=== PATIENT | female | born 1950 | race Caucasian/White ===

== ENCOUNTER 2016-09-11 07:57 | Day surgery (SDC) | payer BC ==
[2016-09-11] MEDS ORDERED: Sodium Chloride 0.9% 5 ML Syringe FLUSH PRN (08:00)
[2016-09-11] MEDS ORDERED: Midazolam 1 MG/ML 2 ML SDV IV ONE (08:00)
[2016-09-11] MEDS ORDERED: Propofol 200 MG/20 ML SDV IV ONE (08:00)
[2016-09-11] MEDS ORDERED: Sodium Chloride 0.9% 1,000 ML IV SCH (08:00)
[2016-09-11] MEDS ORDERED: fentaNYL 100 MCG/2 ML SDV IV ONE (08:00)
[2016-09-11] MEDS ORDERED: Midazolam 1 MG/ML 2 ML SDV ONE (08:10)
[2016-09-11] MEDS ORDERED: Propofol 200 MG/20 ML SDV ONE ×2 (08:10→08:48)
[2016-09-11] MEDS ORDERED: fentaNYL 100 MCG/2 ML SDV ONE (08:10)
[2016-09-11] MEDS ORDERED: EPINEPHrine 1:10,000 1 MG/10 ML Syringe ONE (08:15)
--- NOTE | 2016-09-11 10:10 | PCM.OPNOTE ---
- General Post-Op/Procedure Note Date of Surgery/Procedure: 09/11/16 Operative Procedure(s): Colonoscopy. Pre Op Diagnosis: Anemia. Post-Op Diagnosis: Normal colonoscopy. Anesthesia Technique: MAC Primary Surgeon: Daniel Macias Condition: Good Free Text/Narrative:: INFORMED CONSENT: Patient is here today for elective colonoscopy. All aspects of this procedure have been discussed with the patient. All possible complications also, including possibility of perforation, infection, pain, bleeding and unknown complications. In the event of perforation patient may need to have abdominal exploration, colon resection, colostomy and even was discussed. Anesthetic complications were handled by anesthesia department. The patient understands fully well. Patient did not have any further questions for me at the end of my interview. The patient wishes for me to proceed. PREOPERATIVE DIAGNOSIS/INDICATIONS: [anemia] POSTOPERATIVE DIAGNOSIS: [normal] INSTRUMENT USED: Olympus videocolonoscope. ASA CLASSIFICATION: [2] ANESTHESIA: Continuous EKG, oximetry and intermittent blood pressure and respiratory monitoring were performed throughout the procedure. IV Versed and Fentanyl were administered. PROCEDURE PERFORMED: Colonoscopy POSITIONS OF PATIENT: Left lateral. RECTUM: Normal. SIGMOID COLON: Normal. DESCENDING COLON: Normal. SPLENIC FLEXURE: Normal. TRANSVERSE COLON: Normal. HEPATIC FLEXURE: Normal. ASCENDING COLON: Normal. CECUM: Normal. ILEOCECAL VALVE: Normal. BIOPSY: None. TOLERANCE: Excellent. COMPLICATIONS: None.
--- NOTE | 2016-09-11 10:46 | PCM.OPNOTE ---
- General Post-Op/Procedure Note Date of Surgery/Procedure: 09/11/16 Operative Procedure(s): Colonoscopy Pre Op Diagnosis: Alteration of bowel habits and rectal bleeding Post-Op Diagnosis: Normal colonoscopy except for multiple diverticulosis throughout the colon Anesthesia Technique: MAC Primary Surgeon: Daniel Macias Complications: None Condition: Good Free Text/Narrative:: INFORMED CONSENT: Patient is here today for elective colonoscopy. All aspects of this procedure have been discussed with the patient. All possible complications also, including possibility of perforation, infection, pain, bleeding and unknown complications. In the event of perforation patient may need to have abdominal exploration, colon resection, colostomy and even was discussed. Anesthetic complications were handled by anesthesia department. The patient understands fully well. Patient did not have any further questions for me at the end of my interview. The patient wishes for me to proceed. PREOPERATIVE DIAGNOSIS/INDICATIONS: [alteration of bowel habits and rectal bleeding] POSTOPERATIVE DIAGNOSIS: [multiple diverticuli scattered throughout the length of the colon no complication or bleeding no evidence of malignancy or polyps] INSTRUMENT USED: Olympus videocolonoscope. ASA CLASSIFICATION: [2] ANESTHESIA: Continuous EKG, oximetry and intermittent blood pressure and respiratory monitoring were performed throughout the procedure. IV Versed and Fentanyl were administered. PROCEDURE PERFORMED: Colonoscopy POSITIONS OF PATIENT: Left lateral. RECTUM: Normal. SIGMOID COLON: multiple diverticuli were seen. DESCENDING COLON: a few diverticuli were seen. SPLENIC FLEXURE: Normal. TRANSVERSE COLON: Normal. HEPATIC FLEXURE: Normal. ASCENDING COLON: a few diverticuli were seen. CECUM: Normal. ILEOCECAL VALVE: Normal. BIOPSY: None. TOLERANCE: Excellent. COMPLICATIONS: None. Final diagnosis: Multiple diverticuli throughout the colon, otherwise negative colonoscopy
--- NOTE | 2016-09-11 10:52 | PCM.OPNOTE ---
- General Post-Op/Procedure Note Date of Surgery/Procedure: 09/11/16 Operative Procedure(s): Colonoscopy and polypectomy Condition: Good Free Text/Narrative:: it should be noted that the patient did have a small polyp in the sigmoid colon approximately 25 cms from the anal margin. This polyp was removed using the hot biopsy forceps and a resolution clip was placed for additional hemostasis. The polyp was retrieved and sent for histology. The patient tolerated the procedure very well. Please add this to the previous op note for this patient.
[2016-09-11 11:45] VITALS: BP 106/46
== END 2016-09-11 11:10 | disposition home or self-care (01) ==
LOC: KA.SDS 07:57
PROVIDERS: ATTEND Family Medicine
DX: K63.5 Polyp of colon (principal); K57.30 Diverticulosis of large intestine without perforation or abscess without bleeding; I10 Essential (primary) hypertension; E11.9 Type 2 diabetes mellitus without complications; Z79.4 Long term (current) use of insulin; E78.2 Mixed hyperlipidemia; Z79.899 Other long term (current) drug therapy; Z79.82 Long term (current) use of aspirin
CPT/HCPCS: 36415; 45380; 82962; 85018; J2250; J2704; J3010; J7030

== ENCOUNTER 2016-12-11 07:42 | Emergency (ER) | payer BC ==
[2016-12-11 07:58] VITALS: BP 154/79
[2016-12-11] MEDS ORDERED: Sodium Chloride 0.9% 5 ML Syringe FLUSH PRN (07:58)
[2016-12-11 08:23] LABS: CHLORIDE,CL 107 mmol/L (98-115); SODIUM,NA 145 mmol/L (136-145)
--- NOTE | 2016-12-11 08:39 | EDM.PDOC ---
ED HPI GENERAL MEDICAL PROBLEM - General Chief Complaint: Lower Extremity Injury/Pain Stated Complaint: right arm and left leg numbness Time Seen by Provider: 12/11/16 08:23 Source of Information: Reports: Patient, EMS, EMS Notes Reviewed, Family History Limitations: Reports: No Limitations - History of Present Illness INITIAL COMMENTS - FREE TEXT/NARRATIVE: PT STATES SHE WOKE THIS AM AND HER RIGHT UPPER EXTREMITY AND LEFT LOWER EXTREMITY FELT NUMB. ADMITS TO SLEEPING ON THAT SIDE OF BODY THROUGH THE NIGHT. SHE DIDN'T THINK SHE COULD WALK SO CALLED 911. STATES HE THINKS HER SPEECH MIGHT HAVE BEEN GARBLED FOR FEW MINUTES. Pt admits to a fall after she felt weak while walking to bathroom 48 hours ago. Denies any injury at that time. PT HAS H/O AM HYPOGLYCEMIA AND FOUND TO BE 61 BY EMS. DENIES BECKWITH, BLURRY VISION, DIZZINESS, N/V, CP, OR SOB. Onset: Today Location: Reports: Upper Extremity, Right, Lower Extremity, Right Quality: Reports: Other (NUMB) Severity: Mild Improves with: Reports: Other (RESOLVED PRIOR TO PRESENTATION) Worsens with: Reports: None Associated Symptoms: Reports: No Other Symptoms - Related Data Allergies Allergy/AdvReac Type Severity Reaction Status Date / Time No Known Drug Allergies Allergy Unknown Other Verified 12/11/16 07:59 Home Meds: Home Meds Aspirin 325 mg PO DAILY 12/29/14 [History] Enalapril Maleate 20 mg PO DAILY 12/29/14 [History] Ibuprofen 400 tab PO DAILY 12/29/14 [History] Insulin Aspart [NovoLOG] See Protocol SQ QIDACANDBED 12/29/14 [History] Insulin Glarg,Human.Rec.Analog [LantUS] 50 unit SQ BEDTIME 12/29/14 [History] Losartan [Cozaar] 25 mg PO DAILY 12/29/14 [History] Multivitamin [Multivitamins] 1 tab PO DAILY 12/29/14 [History] Sertraline HCl 50 mg PO DAILY 12/29/14 [History] Simvastatin 40 mg PO DAILY 12/29/14 [History] metFORMIN [Glucophage XR] 500 mg PO BIDMEALS 12/29/14 [History] Omeprazole 20 mg PO DAILY 09/04/16 [History] Past Medical History HEENT History: Reports: Cataract, Impaired Vision Cardiovascular History: Reports: Hypertension Respiratory History: Reports: None Gastrointestinal History: Reports: Hemorrhoids Genitourinary History: Reports: None 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: Musculoskeletal History: Reports: Other (See Below) Other Musculoskeletal History: 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 - injections Neurological History: Reports: None Psychiatric History: Reports: Anxiety, Depression Endocrine/Metabolic History: Reports: Diabetes, Type II Hematologic History: Reports: None Immunologic History: Reports: None Oncologic (Cancer) History: Reports: None Dermatologic History: Reports: None - Infectious Disease History Infectious Disease History: Reports: Chicken Pox, Measles, Shingles - Past Surgical History Head Surgeries/Procedures: Reports: None HEENT Surgical History: Reports: Cataract Surgery Cardiovascular Surgical History: Reports: None Respiratory Surgical History: Reports: None GI Surgical History: Reports: None Female Surgical History: Reports: None Endocrine Surgical History: Reports: None Neurological Surgical History: Reports: None Musculoskeletal Surgical History: Reports: None Oncologic Surgical History: Reports: None Dermatological Surgical History: Reports: None Social & Family History - Family History Family Medical History: Noncontributory - Tobacco Use Smoking Status *Q: Former Smoker Years of Tobacco use: 27 Used Tobacco, but Quit: Yes Month Tobacco Last Used: unknown - Caffeine Use Caffeine Use: Reports: None - Recreational Drug Use Recreational Drug Use: No Review of Systems - Review of Systems Review Of Systems: ROS reveals no pertinent complaints other than HPI. Constitutional: Reports: No Symptoms Eyes: Reports: No Symptoms Ears: Reports: No Symptoms Nose: Reports: No Symptoms Mouth/Throat: Reports: No Symptoms Respiratory: Reports: No Symptoms Cardiovascular: Reports: No Symptoms GI/Abdominal: Reports: No Symptoms Genitourinary: Reports: No Symptoms Musculoskeletal: Reports: Arm Pain (RIGHT), Leg Pain (LEFT) Skin: Reports: No Symptoms Neurological: Reports: Numbness (RUE / RLE) Psychiatric: Reports: No Symptoms ED EXAM, GENERAL - Physical Exam Exam: See Below Exam Limited By: No Limitations General Appearance: Alert, WD/WN, No Apparent Distress Eye Exam: Bilateral Eye: Normal Inspection Ears: Normal External Exam, Normal Canal, Normal TMs Nose: Normal Inspection, Normal Mucosa, No Blood Throat/Mouth: Normal Inspection, Normal Oropharynx, No Airway Compromise Head: Atraumatic, Normocephalic Neck: Normal Inspection, Supple, Non-Tender, Full Range of Motion Respiratory/Chest: No Respiratory Distress, Lungs Clear, Normal Breath Sounds, No Accessory Muscle Use, Chest Non-Tender Cardiovascular: Regular Rate, Rhythm, No Murmur GI/Abdominal: Normal Bowel Sounds, Soft, Non-Tender, No Distention, No Abnormal Bruit Back Exam: Normal Inspection, Full Range of Motion. No: CVA Tenderness (L), CVA Tenderness (R) Extremities: Normal Inspection, Normal Range of Motion, Non-Tender, No Pedal Edema Neurological: Alert, Oriented, CN II-XII Intact, Normal Cognition, No Motor/ Sensory Deficits Psychiatric: Normal Affect, Normal Mood Skin Exam: Warm, Dry, Intact, Normal Color, No Rash Lymphatic: No Adenopathy Course - Vital Signs Last Recorded V/S: Last Vital Signs Temp 97.1 F 12/11/16 07:54 Pulse 67 12/11/16 07:54 Resp 16 12/11/16 07:54 BP 154/79 H 12/11/16 07:54 Pulse Ox 95 12/11/16 07:54 - Orders/Labs/Meds Orders: Active Orders 24 hr Category Date Time Status Peripheral IV Care [RC] . DIRECTED Care 12/11/16 07:59 Active Head wo Cont [CT] Stat Exams 12/11/16 08:24 Ordered Sodium Chloride 0.9% [Syrex Flush] Med 12/11/16 07:58 Active 5 ml FLUSH Q8HR PRN Peripheral IV Insertion Adult [OM.PC] Routine Oth 12/11/16 07:58 Ordered Medication Orders Sodium Chloride (Syrex Flush) 5 ml FLUSH Q8HR PRN PRN Reason: Keep Vein Open Labs: Laboratory Tests 12/11/16 12/11/16 Range/Units 07:55 07:55 WBC 6.5 (5.0-10.0) 10^3/uL RBC 4.60 (3.80-5.50) 10^6/uL Hgb 10.2 L (12.0-16.0) g/dL Hct 32.3 L (37.0-47.0) % MCV 70.2 L (82.0-92.0) fL MCH 22.2 L (27.0-31.0) pg MCHC 31.6 L (32.0-36.0) g/dL RDW 17.4 H (11.5-14.5) % Plt Count 351 H (150-300) 10^3/uL MPV 8.4 (7.4-10.4) fL Neut % (Auto) 70.8 H (50.0-70.0) % Lymph % (Auto) 21.2 (20.0-40.0) % [place] % (Auto) 5.3 (2.0-8.0) % Eos % (Auto) 2.2 (1.0-3.0) % Baso % (Auto) 0.5 (0.0-1.0) % Neut # (Auto) 4.7 (2.5-7.0) 10^3/uL Lymph # (Auto) 1.4 (1.0-4.0) 10^3/uL [place] # (Auto) 0.3 (0.1-0.8) 10^3/uL Eos # (Auto) 0.1 (0.1-0.3) 10^3/uL Baso # (Auto) 0.0 (0.0-0.1) 10^3/uL Sodium 145 (136-145) mmol/L Potassium 3.9 (3.3-5.3) mmol/L Chloride 107 (98-115) mmol/L Carbon Dioxide 26.5 (21.0-32.0) mmol/L BUN 16 (6-25) mg/dL Creatinine 0.61 (0.51-1.17) mg/dL Est Cr Clr Drug Dosing 79.40 mL/min Estimated GFR (MDRD) > 60 mL/min Glucose 84 (70-110) mg/dL Calcium 9.0 (8.7-10.3) mg/dL Total Bilirubin 0.4 (0.2-1.0) mg/dL AST 20 (15-37) U/L ALT 20 (12-78) U/L Alkaline Phosphatase 85 (46-116) IU/L Total Protein 7.2 (6.4-8.2) g/dL Albumin 3.40 (3.00-4.80) g/dL Meds: Medications Generic Name Dose Route Start Last Admin Trade Name Freq PRN Reason Stop Dose Admin Sodium Chloride 5 ml 12/11/16 07:58 Syrex Flush FLUSH Q8HR PRN Keep Vein Open - Radiology Interpretation Free Text/Narrative:: CT HEAD / NO ACUTE PROCESS CT Results Date: 12/11/16 - Re-Assessments/Exams Free Text/Narrative Re-Assessment/Exam: 12/11/16 09:34PT AFEBRILE, NONTOXIC APPEARING, VSS, SYMPTOMS COMPLETELY RESOLVED. Free Text/Narrative Re-Assessment/Exam: 12/11/16 09:35 WILL RECOMMEND DISCONTINUE METFORMIN QHS UNTIL F/U WITH [facility] ON FRIDAY Departure - Departure Time of Disposition: 09:36 Disposition: Home, Self-Care 01 Condition: Good Clinical Impression: Lower extremity numbness, Hypoglycemia - Discharge Information Instructions: Peripheral Neuropathy, Hypoglycemia, [id number], Diabetic Neuropathy Referrals: Neva Rosales PA-C [Primary Care Provider] - Additional Instructions: FOLLOW UP AT [facility] ON FRIDAY. HOLD NIGHTTIME METFORMIN UNTIL SEEN AT CLINIC. RETURN TO ER SOONER IF SYMPTOMS CONTINUE - My Orders Last 24 Hours: My Active Orders 12/11/16 07:58 Sodium Chloride 0.9% [Syrex Flush] 5 ml FLUSH Q8HR PRN Peripheral IV Insertion Adult [OM.PC] Routine 12/11/16 07:59 Peripheral IV Care [RC] . DIRECTED 12/11/16 08:24 Head wo Cont [CT] Stat - Assessment/Plan Last 24 Hours: My Active Orders 12/11/16 07:58 Sodium Chloride 0.9% [Syrex Flush] 5 ml FLUSH Q8HR PRN Peripheral IV Insertion Adult [OM.PC] Routine 12/11/16 07:59 Peripheral IV Care [RC] . DIRECTED 12/11/16 08:24 Head wo Cont [CT] Stat Assessment:: EXTREMITY NUMBNESS / HYPOGLYCEMIA
== END 2016-12-11 09:45 | disposition home or self-care (01) ==
LOC: KA.ED 07:42
DX: R20.0 Anesthesia of skin (principal); E16.2 Hypoglycemia, unspecified; I10 Essential (primary) hypertension; F41.9 Anxiety disorder, unspecified; F32.9 Major depressive disorder, single episode, unspecified; Z87.891 Personal history of nicotine dependence; Z79.82 Long term (current) use of aspirin; Z79.4 Long term (current) use of insulin; Z79.899 Other long term (current) drug therapy
CPT/HCPCS: 70450; 80053; 85025; 99285

== ENCOUNTER 2020-11-04 08:00 | Emergency (ER) | payer MEDICARE, BC ==
[2020-11-04] MEDS: Sodium Chloride 0.9% 1,000 ML IV ONE (08:30)
--- NOTE | 2020-11-04 09:06 | CR ---
[id number] RAD/RAD Chest PA or AP 1V EXAM: FRONTAL CHEST INDICATION: + COVID. COMPARISON: None. DISCUSSION: Evaluation is somewhat limited by low lung volumes. Borderline heart size without evidence of edema. Mild basilar atelectasis with no definite infiltrates. No effusions. IMPRESSION: 1. Low lung volumes with mild bibasilar atelectasis. No definite infiltrates. Trenton Powers MD 11/04/20 0905 Thank you for allowing us to participate in the care of your patient.
--- NOTE | 2020-11-04 09:07 | EDM.PDOC ---
ED HPI GENERAL MEDICAL PROBLEM - General Chief Complaint: General Stated Complaint: FLU-LIKE SYMPTOMS Time Seen by Provider: 11/04/20 08:35 Source of Information: Reports: Patient History Limitations: Reports: No Limitations - History of Present Illness INITIAL COMMENTS - FREE TEXT/NARRATIVE: 70 YO WF PRESENTS TO ER COMPLAINING OF GENERALIZED WEAKNESS WITH NAUSEA AND DIARRHEA. PT WAS DIAGNOSED WITH COVID-19 YESTERDAY AFTER 3 DAYS OF DIARRHEA AND WEAKNESS. PT REPORTS SHE HAS HAD WATERY STOOLS WITH ASSOCIATED NAUSEA WITHOUT VOMITING. PT REPORTS THIS AM SHE WOKE UP AND FELT DIZZY AND FELL TO THE FLOOR. PT DENIES LOSS OF CONSCIOUSNESS OR ANY HEAD/NECK/BACK INJURIES FROM FALL. PTS FAMILY CALLED EMS TO TRANSPORT TO ER. PT WAS SCHEDULED FOR OUTPATIENT LABS, FLUIDS AND REGENERON THIS AM BUT CAME TO ER INSTEAD. PT REPORTS COVID VACCINE GIVEN 04/2020. PT DENIES COUGH, CHEST PAIN, SHORTNESS OF BREATH OR LOSS OF TASTE OR SMELL. Onset Date: 11/02/20 Duration: Day(s): (3) Location: Reports: Generalized Quality: Reports: Ache Severity: Mild Improves with: Reports: None Worsens with: Reports: None Associated Symptoms: Reports: Nausea/Vomiting, Weakness. Denies: Confusion, Didi st Pain, Cough, Shortness of Breath - Related Data Allergies Allergy/AdvReac Type Severity Reaction Status Date / Time No Known Drug Allergies Allergy Unknown Other Verified 11/04/20 08:41 Home Meds: Home Meds Aspirin 325 mg PO DAILY 12/29/14 [History] Enalapril Maleate 20 mg PO DAILY 12/29/14 [History] Ibuprofen 400 tab PO DAILY 12/29/14 [History] Insulin Aspart [NovoLOG] See Protocol SQ QIDACANDBED 12/29/14 [History] Insulin Glarg,Human.Rec.Analog [LantUS] 45 unit SQ DAILY 12/29/14 [History] Multivitamin [Multivitamins] 1 tab PO DAILY 12/29/14 [History] Sertraline HCl 50 mg PO DAILY 12/29/14 [History] Simvastatin 40 mg PO DAILY 12/29/14 [History] metFORMIN [Glucophage XR] 500 mg PO DAILY 12/29/14 [History] Ferrous Sulfate 325 mg PO DAILY 11/03/20 [History] Past Medical History HEENT History: Reports: Cataract, Impaired Vision Cardiovascular History: Reports: High Cholesterol, Hypertension Respiratory History: Reports: None Gastrointestinal History: Reports: Hemorrhoids Genitourinary History: Reports: None 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: Musculoskeletal History: Reports: Other (See Below) Other Musculoskeletal History: 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 - injections Neurological History: Reports: None Psychiatric History: Reports: Anxiety, Depression Endocrine/Metabolic History: Reports: Diabetes, Type II, IDDM, Obesity/BMI 30+ Hematologic History: Reports: Iron Deficiency Immunologic History: Reports: None Oncologic (Cancer) History: Reports: None Dermatologic History: Reports: None - Infectious Disease History Infectious Disease History: Reports: Chicken Pox, Measles, Novel Coronavirus, Shingles - Past Surgical History Head Surgeries/Procedures: Reports: None HEENT Surgical History: Reports: Cataract Surgery Cardiovascular Surgical History: Reports: None Respiratory Surgical History: Reports: None GI Surgical History: Reports: None Female Surgical History: Reports: None Endocrine Surgical History: Reports: None Neurological Surgical History: Reports: None Musculoskeletal Surgical History: Reports: None Oncologic Surgical History: Reports: None Dermatological Surgical History: Reports: None Social & Family History - Family History Family Medical History: No Pertinent Family History - Tobacco Use Tobacco Use Status *Q: Never Tobacco User - Caffeine Use Caffeine Use: Reports: None - Recreational Drug Use Recreational Drug Use: No ED ROS GENERAL - Review of Systems Review Of Systems: See Below Constitutional: Reports: Malaise, Weakness, Decreased Appetite HEENT: Reports: No Symptoms Respiratory: Reports: No Symptoms Cardiovascular: Reports: Lightheadedness Endocrine: Reports: No Symptoms GI/Abdominal: Reports: Diarrhea, Nausea : Reports: No Symptoms Musculoskeletal: Reports: No Symptoms Skin: Reports: No Symptoms Neurological: Reports: No Symptoms Psychiatric: Reports: No Symptoms Hematologic/Lymphatic: Reports: No Symptoms Immunologic: Reports: No Symptoms ED EXAM, GI/ABD - Physical Exam Exam: See Below Exam Limited By: No Limitations General Appearance: Alert, WD/WN, No Apparent Distress Throat/Mouth: Normal Inspection, Normal Lips, Normal Teeth, Normal Gums, Normal Oropharynx, Normal Voice, No Airway Compromise Head: Atraumatic, Normocephalic Neck: Normal Inspection, Supple, Non-Tender, Full Range of Motion Respiratory/Chest: No Respiratory Distress, Lungs Clear, Normal Breath Sounds, No Accessory Muscle Use, Chest Non-Tender Cardiovascular: Normal Peripheral Pulses, Regular Rate, Rhythm, No Edema, No Gallop, No JVD, No Murmur, No Rub GI/Abdominal Exam: Normal Bowel Sounds, Soft, Non-Tender, No Organomegaly, No Distention, No Abnormal Bruit, No Mass, Pelvis Stable Back Exam: Normal Inspection, Full Range of Motion, NT Extremities: Normal Inspection, Normal Range of Motion, Non-Tender, Normal Capillary Refill, No Pedal Edema Neurological: Alert, Oriented, CN II-XII Intact, Normal Cognition, Normal Gait, No Motor/Sensory Deficits Psychiatric: Normal Affect, Normal Mood Skin Exam: Warm, Dry, Intact, Normal Color, No Rash Lymphatic: No Adenopathy Course - Vital Signs Last Recorded V/S: Last Vital Signs Temp 96.6 F L 11/04/20 08:15 Pulse 101 H 11/04/20 08:47 Resp 16 11/04/20 08:47 BP 107/50 L 11/04/20 08:47 Pulse Ox 95 11/04/20 08:47 - Orders/Labs/Meds Orders: Active Orders 24 hr Category Date Time Status Sodium Chloride 0.9% @ 999 MLS/HR (1000ml) Med 11/04/20 09:22 Ordered Sodium Chloride 0.9% [Normal Saline] 1,000 ml IV .BOLUS Medication Orders Sodium Chloride (Normal Saline) 1,000 mls @ 999 mls/hr IV .BOLUS ONE Stop: 11/04/20 10:22 Labs: Laboratory Tests 11/04/20 11/04/20 11/04/20 Range/Units 08:35 08:35 09:15 WBC 3.56 L (5.00-10.00) 10^3/uL RBC 4.45 (3.80-5.50) 10^6/uL Hgb 11.3 L (12.0-16.0) g/dL Hct 36.2 L (37.0-47.0) % MCV 81.3 L D (82.0-92.0) fL MCH 25.4 L (27.0-31.0) pg MCHC 31.2 L (32.0-36.0) g/dL RDW 14.2 (11.5-14.5) % Plt Count 319 (150-400) 10^3/uL MPV 9.7 (7.4-10.4) fL Immature Gran % (Auto) 0.0 (0.0-5.0) % Neut % (Auto) 68.1 (50.0-70.0) % Lymph % (Auto) 11.2 L (20.0-40.0) % [place] % (Auto) 16.0 H (2.0-8.0) % Eos % (Auto) 3.9 H (1.0-3.0) % Baso % (Auto) 0.8 (0.0-1.0) % Neut # (Auto) 2.42 L (2.50-7.00) 10^3/uL Lymph # (Auto) 0.40 L (1.00-4.00) 10^3/uL [place] # (Auto) 0.57 (0.10-0.80) 10^3/uL Eos # (Auto) 0.14 (0.10-0.30) 10^3/uL Baso # (Auto) 0.03 (0.00-0.10) 10^3/uL Immature Gran # (Auto) 0.00 (0.00-0.50) 10^3/uL Sodium 140 (136-145) mmol/L Potassium 3.5 (3.5-5.1) mmol/L Chloride 101 (98-107) mmol/L Carbon Dioxide 23.5 (21.0-32.0) mmol/L Anion Gap 19.0 H (5-15) mmol/L BUN 42 H (7-18) mg/dL Creatinine 0.96 (0.51-1.17) mg/dL Est Cr Clr Drug Dosing 47.76 mL/min Estimated GFR (MDRD) 58 mL/min Glucose 118 (70-140) mg/dL Calcium 8.1 L (8.7-10.3) mg/dL Total Bilirubin 0.7 (0.2-1.0) mg/dL AST 18 (15-37) U/L ALT 18 (14-63) U/L Alkaline Phosphatase 84 (46-116) U/L Total Protein 6.9 (6.4-8.2) g/dL Albumin 3.09 L (3.40-5.00) g/dL Lipase 32 L (73-393) U/L Specimen Type Urinvoid Urine Color Dark yellow H (YELLOW) Urine Appearance Slightly cloudy H (CLEAR) Urine pH 5.0 (5.0-9.0) Ur Specific [place] 1.020 (1.005-1.030) Urine Protein Trace H (NEGATIVE) mg/dL Urine Glucose (UA) Negative (NEGATIVE) mg/dL Urine Ketones Trace H (NEGATIVE) mg/dL Urine Occult Blood Negative (NEGATIVE) Urine Nitrite Positive H (NEGATIVE) Urine Bilirubin Small H (NEGATIVE) Urine Urobilinogen 0.2 (0.2-1.0) E.U./dL Ur Leukocyte Esterase Negative (NEGATIVE) Urine RBC Not seen (0-5) /HPF Urine WBC 5-10 H (0-5) /HPF Ur Epithelial Cells Few /LPF Urine Bacteria Moderate H (NONE TO FEW) /HPF Meds: Medications Generic Name Dose Route Start Last Admin Trade Name Freq PRN Reason Stop Dose Admin Sodium Chloride 1,000 mls @ 999 mls/hr 11/04/20 09:22 Normal Saline IV 11/04/20 10:22 .BOLUS ONE - Radiology Interpretation Free Text/Narrative:: PT STATES SHE FEELS MUCH BETTER AFTER IVF HYDRATION. PT AGREEABLE TO GO HOME AFTER RECEIVING REGENERON. PT WITHOUT NAUSEA/VOMITING. PULSE RATE IMPROVED AFTER IVF BOLUS. PT IN NAD Departure - Departure Time of Disposition: 09:53 Disposition: Home, Self-Care 01 Condition: Fair Clinical Impression: COVID-19, Dehydration Diarrhea Qualifiers: Diarrhea type: unspecified type Qualified Code(s): R19.7 - Diarrhea, unspecified - Discharge Information Instructions: Dehydration, Adult, [id number], COVID-19 Frequently Asked Questions Referrals: Daniel Macias MD [Primary Care Provider] - Forms: ED Department Discharge Additional Instructions: 1. DISCHARGE HOME 2. SCHEDULED FOR REGENERON TODAY 3. FLUIDS TOLERATED 4. DISCUSSED WITH [facility]- WILL GIVE REGENERON SCHEDULED TODAY AND CONSIDER MORE IV HYDRATION NEEDED 5. RETURN TO ER FOR WORSENING SYMPTOMS Sepsis Event Note (ED) - Evaluation Sepsis Screening Result: No Definite Risk - Focused Exam Vital Signs: Vital Signs Temp Pulse Resp BP Pulse Ox 11/04/20 08:47 101 H 16 107/50 L 95 11/04/20 08:15 96.6 F L 101 H 16 116/62 94 L - My Orders Last 24 Hours: My Active Orders 11/04/20 09:22 Sodium Chloride 0.9% @ 999 MLS/HR (1000ml) Sodium Chloride 0.9% [Normal Saline] 1,000 ml IV .BOLUS - Assessment/Plan Last 24 Hours: My Active Orders 11/04/20 09:22 Sodium Chloride 0.9% @ 999 MLS/HR (1000ml) Sodium Chloride 0.9% [Normal Saline] 1,000 ml IV .BOLUS Assessment:: 1. DEHYDRATION 2. COVID-19 3. DIARRHEA Plan: 1. DISCHARGE HOME 2. SCHEDULED FOR REGENERON TODAY 3. FLUIDS TOLERATED 4. DISCUSSED WITH [facility]- WILL GIVE REGENERON SCHEDULED TODAY AND CONSIDER MORE IV HYDRATION NEEDED 5. RETURN TO ER FOR WORSENING SYMPTOMS
[2020-11-04 10:16] VITALS: BP 107/49; PULSE 89
== END 2020-11-04 10:08 | disposition home or self-care (01) ==
LOC: KA.ED 08:00
DX: U07.1 COVID-19 (principal); E86.0 Dehydration; R19.7 Diarrhea, unspecified; E78.00 Pure hypercholesterolemia, unspecified; I10 Essential (primary) hypertension; E11.9 Type 2 diabetes mellitus without complications; E66.9 Obesity, unspecified; Z68.34 Body mass index [BMI] 34.0-34.9, adult; Z79.82 Long term (current) use of aspirin; Z79.4 Long term (current) use of insulin
CPT/HCPCS: 36415; 71045; 80053; 81001; 83690; 85025; 96360; 99284; 99285-25; J7030

== ENCOUNTER 2020-11-07 16:57 | Inpatient (IN) | payer MEDICARE, BC ==
[2020-11-07] MEDS ORDERED: Ondansetron 4 MG/2 ML SDV IVPUSH ONE (17:09)
[2020-11-07] MEDS ORDERED: Sodium Chloride 0.9% 1,000 ML IV ONE (17:09)
--- NOTE | 2020-11-07 17:12 | EDM.PDOC ---
ED HPI GENERAL MEDICAL PROBLEM - General Chief Complaint: Gastrointestinal Problem Stated Complaint: COVID ISSUES Time Seen by Provider: 11/07/20 17:05 Source of Information: Reports: Patient, EMS History Limitations: Reports: No Limitations - History of Present Illness INITIAL COMMENTS - FREE TEXT/NARRATIVE: 70 YO WF PRESENTS TO ER COMPLAINING OF SEVERE NAUSEA WITHOUT VOMITING WITH ANOREXIA AND DIZZINESS. PT WAS DIAGNOSED WITH COVID-19 11/03/2020 AFTER 3 DAYS OF DIARRHEA AND WEAKNESS. PT REPORTS SHE HAD WATERY STOOLS WHICH HAS RESOLVED BUT NAUSEA WITHOUT VOMITING HAS BECOME MORE SEVERE. PT REPORTS SHE IS STILL FEELING DIZZY BUT DENIES SYNCOPE. PT RECEIVED REGENERON THIS ON 11/04/2020 BUT HASN'T IMPROVED HER SYMPTOMS OF TODAY. PT REPORTS COVID VACCINE GIVEN 04/2020. PT DENIES COUGH, CHEST PAIN, SHORTNESS OF BREATH BUT NOW HAS SOME LOSS OF TASTE AND SMELL. Duration: Day(s): (5) Location: Reports: Generalized Severity: Moderate Improves with: Reports: None Worsens with: Reports: None Associated Symptoms: Reports: Loss of Appetite, Malaise, Nausea/Vomiting, Weakness. Denies: Cough, Fever/Chills, Shortness of Breath, Syncope - Related Data Allergies Allergy/AdvReac Type Severity Reaction Status Date / Time No Known Drug Allergies Allergy Unknown Other Verified 11/07/20 17:35 Home Meds: Home Meds Aspirin 325 mg PO DAILY 12/29/14 [History] Enalapril Maleate 20 mg PO DAILY 12/29/14 [History] Ibuprofen 400 tab PO DAILY 12/29/14 [History] Insulin Aspart [NovoLOG] See Protocol SQ QIDACANDBED 12/29/14 [History] Insulin Glarg,Human.Rec.Analog [LantUS] 45 unit SQ DAILY 12/29/14 [History] Multivitamin [Multivitamins] 1 tab PO DAILY 12/29/14 [History] Sertraline HCl 50 mg PO DAILY 12/29/14 [History] Simvastatin 40 mg PO DAILY 12/29/14 [History] metFORMIN [Glucophage XR] 500 mg PO DAILY 12/29/14 [History] Ferrous Sulfate 325 mg PO DAILY 11/03/20 [History] ondansetron HCL [Zofran] 4 mg PO Q6HR PRN #24 tablet 11/04/20 [Rx] Past Medical History HEENT History: Reports: Cataract, Impaired Vision Cardiovascular History: Reports: High Cholesterol, Hypertension Respiratory History: Reports: None Gastrointestinal History: Reports: Hemorrhoids Genitourinary History: Reports: None 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: Musculoskeletal History: Reports: Other (See Below) Other Musculoskeletal History: 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 - injections Neurological History: Reports: None Psychiatric History: Reports: Anxiety, Depression Endocrine/Metabolic History: Reports: Diabetes, Type II, IDDM, Obesity/BMI 30+ Hematologic History: Reports: Iron Deficiency Immunologic History: Reports: None Oncologic (Cancer) History: Reports: None Dermatologic History: Reports: None - Infectious Disease History Infectious Disease History: Reports: Chicken Pox, Measles, Novel Coronavirus, Shingles - Past Surgical History Head Surgeries/Procedures: Reports: None HEENT Surgical History: Reports: Cataract Surgery Cardiovascular Surgical History: Reports: None Respiratory Surgical History: Reports: None GI Surgical History: Reports: None Female Surgical History: Reports: None Endocrine Surgical History: Reports: None Neurological Surgical History: Reports: None Musculoskeletal Surgical History: Reports: None Oncologic Surgical History: Reports: None Dermatological Surgical History: Reports: None Social & Family History - Family History Family Medical History: No Pertinent Family History - Caffeine Use Caffeine Use: Reports: None ED ROS GENERAL - Review of Systems Review Of Systems: See Below Constitutional: Reports: Malaise, Weakness HEENT: Reports: No Symptoms Respiratory: Reports: No Symptoms Cardiovascular: Reports: Lightheadedness Endocrine: Reports: No Symptoms GI/Abdominal: Reports: Anorexia, Nausea. Denies: Abdominal Pain, Bloody Stool, Diarrhea, Vomiting : Reports: No Symptoms Musculoskeletal: Reports: No Symptoms Skin: Reports: No Symptoms Neurological: Reports: No Symptoms Psychiatric: Reports: No Symptoms Hematologic/Lymphatic: Reports: No Symptoms Immunologic: Reports: No Symptoms ED EXAM, GENERAL - Physical Exam Exam: See Below Exam Limited By: No Limitations General Appearance: Alert, WD/WN, Mild Distress Head: Atraumatic, Normocephalic Neck: Normal Inspection, Supple, Non-Tender, Full Range of Motion Respiratory/Chest: No Respiratory Distress, Lungs Clear, Normal Breath Sounds, No Accessory Muscle Use, Chest Non-Tender Cardiovascular: Normal Peripheral Pulses, Regular Rate, Rhythm, No Edema, No Gallop, No JVD, No Murmur, No Rub GI/Abdominal: Normal Bowel Sounds, Soft, Non-Tender, No Organomegaly, No Distention, No Mass Back Exam: Normal Inspection, Full Range of Motion, NT Extremities: Normal Inspection, Normal Range of Motion, Non-Tender, Normal Capillary Refill, No Pedal Edema Neurological: Alert, Oriented, CN II-XII Intact, Normal Cognition, Normal Gait, No Motor/Sensory Deficits Psychiatric: Normal Affect, Normal Mood Skin Exam: Warm, Dry, Intact, Normal Color, No Rash Lymphatic: No Adenopathy Course - Vital Signs Last Recorded V/S: Last Vital Signs Temp 98.0 F 11/07/20 17:05 Pulse 104 H 11/07/20 17:05 Resp 20 11/07/20 17:05 BP 141/69 H 11/07/20 17:05 Pulse Ox 93 L 11/07/20 17:05 - Orders/Labs/Meds Orders: Active Orders 24 hr Category Date Time Status Peripheral IV Care [RC] . DIRECTED Care 11/07/20 17:09 Active Sodium Chloride 0.9% [Saline Flush] Med 11/07/20 17:09 Active 10 ml FLUSH Q8HR PRN Peripheral IV Insertion Adult [OM.PC] Routine Oth 11/07/20 17:09 Ordered Medication Orders Potassium Chloride/Sodium Chloride (Normal Saline With 40 Meq Kcl) 1,000 mls @ 125 mls/hr IV ASDIRECTED [facility] Ondansetron HCl (Ondansetron 4 Mg/2 Ml Sdv) 4 mg IV Q6H PRN PRN Reason: Nausea/Vomiting Sodium Chloride (Sodium Chloride 0.9% 10 Ml Syringe) 10 ml FLUSH Q8HR PRN PRN Reason: keep vein open Labs: Laboratory Tests 11/07/20 11/07/20 11/07/20 Range/Units 17:09 17:09 18:50 WBC 9.29 (5.00-10.00) 10^3/uL RBC 4.87 (3.80-5.50) 10^6/uL Hgb 12.3 (12.0-16.0) g/dL Hct 38.1 (37.0-47.0) % MCV 78.2 L D (82.0-92.0) fL MCH 25.3 L (27.0-31.0) pg MCHC 32.3 (32.0-36.0) g/dL RDW 13.9 (11.5-14.5) % Plt Count 413 H D (150-400) 10^3/uL MPV 9.6 (7.4-10.4) fL Immature Gran % (Auto) 1.1 (0.0-5.0) % Neut % (Auto) 76.2 H (50.0-70.0) % Lymph % (Auto) 7.5 L (20.0-40.0) % [place] % (Auto) 14.3 H (2.0-8.0) % Eos % (Auto) 0.8 L (1.0-3.0) % Baso % (Auto) 0.1 (0.0-1.0) % Neut # (Auto) 7.08 H (2.50-7.00) 10^3/uL Lymph # (Auto) 0.70 L (1.00-4.00) 10^3/uL [place] # (Auto) 1.33 H (0.10-0.80) 10^3/uL Eos # (Auto) 0.07 L (0.10-0.30) 10^3/uL Baso # (Auto) 0.01 (0.00-0.10) 10^3/uL Immature Gran # (Auto) 0.10 (0.00-0.50) 10^3/uL Sodium 136 (136-145) mmol/L Potassium 3.3 L (3.5-5.1) mmol/L Chloride 95 L (98-107) mmol/L Carbon Dioxide 13.4 L D (21.0-32.0) mmol/L Anion Gap 30.9 H (5-15) mmol/L BUN 44 H (7-18) mg/dL Creatinine 0.98 (0.51-1.17) mg/dL Est Cr Clr Drug Dosing 46.78 mL/min Estimated GFR (MDRD) 56 mL/min Glucose 236 H (70-140) mg/dL Calcium 8.7 (8.7-10.3) mg/dL Total Bilirubin 0.7 (0.2-1.0) mg/dL AST 13 L (15-37) U/L ALT 16 (14-63) U/L Alkaline Phosphatase 117 H (46-116) U/L Total Protein 7.4 (6.4-8.2) g/dL Albumin 2.79 L (3.40-5.00) g/dL Lipase 25 L (73-393) U/L Specimen Type Urinvoid Urine Color Yellow (YELLOW) Urine Appearance Clear (CLEAR) Urine pH 5.5 (5.0-9.0) Ur Specific [place] >= 1.030 (1.005-1.030) Urine Protein 100 H (NEGATIVE) mg/dL Urine Glucose (UA) Negative (NEGATIVE) mg/dL Urine Ketones >=160 H (NEGATIVE) mg/dL Urine Occult Blood Trace-lysed H (NEGATIVE) Urine Nitrite Negative (NEGATIVE) Urine Bilirubin Small H (NEGATIVE) Urine Urobilinogen 0.2 (0.2-1.0) E.U./dL Ur Leukocyte Esterase Negative (NEGATIVE) Urine RBC 0-5 (0-5) /HPF Urine WBC 0-5 (0-5) /HPF Ur Epithelial Cells Few /LPF Urine Bacteria Rare (NONE TO FEW) /HPF SARS CoV-2 RNA Rapid KATINA (NEGATIVE) 11/07/20 Range/Units 19:10 WBC (5.00-10.00) 10^3/uL RBC (3.80-5.50) 10^6/uL Hgb (12.0-16.0) g/dL Hct (37.0-47.0) % MCV (82.0-92.0) fL MCH (27.0-31.0) pg MCHC (32.0-36.0) g/dL RDW (11.5-14.5) % Plt Count (150-400) 10^3/uL MPV (7.4-10.4) fL Immature Gran % (Auto) (0.0-5.0) % Neut % (Auto) (50.0-70.0) % Lymph % (Auto) (20.0-40.0) % [place] % (Auto) (2.0-8.0) % Eos % (Auto) (1.0-3.0) % Baso % (Auto) (0.0-1.0) % Neut # (Auto) (2.50-7.00) 10^3/uL Lymph # (Auto) (1.00-4.00) 10^3/uL [place] # (Auto) (0.10-0.80) 10^3/uL Eos # (Auto) (0.10-0.30) 10^3/uL Baso # (Auto) (0.00-0.10) 10^3/uL Immature Gran # (Auto) (0.00-0.50) 10^3/uL Sodium (136-145) mmol/L Potassium (3.5-5.1) mmol/L Chloride (98-107) mmol/L Carbon Dioxide (21.0-32.0) mmol/L Anion Gap (5-15) mmol/L BUN (7-18) mg/dL Creatinine (0.51-1.17) mg/dL Est Cr Clr Drug Dosing mL/min Estimated GFR (MDRD) mL/min Glucose (70-140) mg/dL Calcium (8.7-10.3) mg/dL Total Bilirubin (0.2-1.0) mg/dL AST (15-37) U/L ALT (14-63) U/L Alkaline Phosphatase (46-116) U/L Total Protein (6.4-8.2) g/dL Albumin (3.40-5.00) g/dL Lipase (73-393) U/L Specimen Type Urine Color (YELLOW) Urine Appearance (CLEAR) Urine pH (5.0-9.0) Ur Specific [place] (1.005-1.030) Urine Protein (NEGATIVE) mg/dL Urine Glucose (UA) (NEGATIVE) mg/dL Urine Ketones (NEGATIVE) mg/dL Urine Occult Blood (NEGATIVE) Urine Nitrite (NEGATIVE) Urine Bilirubin (NEGATIVE) Urine Urobilinogen (0.2-1.0) E.U./dL Ur Leukocyte Esterase (NEGATIVE) Urine RBC (0-5) /HPF Urine WBC (0-5) /HPF Ur Epithelial Cells /LPF Urine Bacteria (NONE TO FEW) /HPF SARS CoV-2 RNA Rapid KATINA Negative (NEGATIVE) Meds: Medications Generic Name Dose Route Start Last Admin Trade Name Freq PRN Reason Stop Dose Admin Potassium Chloride/Sodium Chloride 1,000 mls @ 125 mls/hr 11/07/20 20:00 Normal Saline With 40 Meq Kcl IV ASDIRECTED [facility] Ondansetron HCl 4 mg 11/07/20 19:43 Ondansetron 4 Mg/2 Ml Sdv IV Q6H PRN Nausea/Vomiting Sodium Chloride 10 ml 11/07/20 17:09 Sodium Chloride 0.9% 10 Ml Syringe FLUSH Q8HR PRN keep vein open Discontinued Medications Generic Name Dose Route Start Last Admin Trade Name Evita PRN Reason Stop Dose Admin Sodium Chloride 1,000 mls @ 999 mls/hr 11/07/20 17:09 11/07/20 17:20 Normal Saline IV 11/07/20 18:09 999 mls/hr .BOLUS ONE Administration Metoclopramide HCl 10 mg 11/07/20 18:36 11/07/20 18:40 Metoclopramide 10 Mg/2 Ml Sdv IVPUSH 11/07/20 18:37 10 mg ONETIME ONE Administration Ondansetron HCl 4 mg 11/07/20 17:09 11/07/20 17:29 Ondansetron 4 Mg/2 Ml Sdv IVPUSH 11/07/20 17:10 4 mg ONETIME ONE Administration - Radiology Interpretation Free Text/Narrative:: CXR- NAD - Re-Assessments/Exams Free Text/Narrative Re-Assessment/Exam: 11/07/20 18:36 PT CONTINUES TO BE NAUSEATED AND WEAK. PT UNABLE TO SIT UP DUE TO FEELING DIZZY AND WEAK. PT ALERT AND ORIENTED X 4. WILL ADMIT FOR OBSERVATION, FLUIDS, ANTIEMETICS Departure - Departure Time of Disposition: 19:49 Disposition: Refer to Observation Condition: Poor Clinical Impression: Hypokalemia, Dehydration, COVID-19 - Discharge Information Sepsis Event Note (ED) - Evaluation Sepsis Screening Result: No Definite Risk - Focused Exam Vital Signs: Vital Signs Temp Pulse Resp BP Pulse Ox 11/07/20 17:05 98.0 F 104 H 20 141/69 H 93 L - My Orders Last 24 Hours: My Active Orders 11/07/20 17:09 Peripheral IV Care [RC] . DIRECTED Sodium Chloride 0.9% [Saline Flush] 10 ml FLUSH Q8HR PRN Peripheral IV Insertion Adult [OM.PC] Routine - Assessment/Plan Last 24 Hours: My Active Orders 11/07/20 17:09 Peripheral IV Care [RC] . DIRECTED Sodium Chloride 0.9% [Saline Flush] 10 ml FLUSH Q8HR PRN Peripheral IV Insertion Adult [OM.PC] Routine Assessment:: 1. COVID RELATED SYMPTOMS 2. SEVERE NAUSEA WITHOUT VOMITING 3. DEHYDRATION Plan: 1. ADMIT TO MEDICINE- OBS-DR MONTES ACCEPTING @1945 (ALL ORDERS PER DR SIMON BACON) 2. NORMAL SALINE WITH 40KCL @125CC/HR 3. HGBA1C/CMP/ESR IN AM 4. ZOFRAN 4MG IV EVERY 6 HOURS NEEDED 5. SUPPORTIVE CARE
[2020-11-07 17:56] LABS: ANION GAP 30.9 mmol/L (5-15)
--- NOTE | 2020-11-07 18:14 | CR ---
[id number] RAD/RAD Chest PA or AP 1V EXAM: SINGLE VIEW CHEST. INDICATION: COUGH COMPARISON: NO PREVIOUS SIMILAR EXAM IS AVAILABLE FINDINGS: The lungs are clear The cardiomediastinal contour is normal. IMPRESSION: NO PNEUMONIA OR EDEMA Vinay Dawson MD 11/07/20 [id number] Thank you for allowing us to participate in the care of your patient.
[2020-11-07] MEDS ORDERED: Metoclopramide 10 MG/2 ML SDV IVPUSH ONE (18:36)
[2020-11-07 20:01] LABS: HEMOGLOBIN A1C 8.3 % (4.3-5.7)
[2020-11-07] MEDS ORDERED: Ondansetron 4 MG Tab.DIS PO PRN (20:50)
[2020-11-07] MEDS: Sodium Chloride 0.9% with KCl 1,000 ML IV SCH (20:52)
[2020-11-07] MEDS ORDERED: Glucagon,Human Recombinant 1 MG Vial IM PRN (21:03)
[2020-11-07] MEDS ORDERED: 50% Dextrose in Water 50 ML Syringe IVPUSH PRN (21:03)
[2020-11-07] MEDS: Ondansetron 4 MG/2 ML SDV IV PRN (22:40)
[2020-11-07] MEDS ORDERED: Melatonin 3 MG Tab PO PRN (22:44)
[2020-11-08] MEDS ORDERED: Phosphorus #1 250 MG Tab PO ONE ×2 (05:00→23:09)
[2020-11-08] MEDS: Sodium Chloride 0.9% with KCl 1,000 ML IV SCH (05:31)
[2020-11-08] MEDS: Insulin Aspart 100 Units/ML 3 ML Pen SUBCUT SCH ×2 (08:14→12:19)
[2020-11-08 08:34] LABS: ANION GAP 33.2 mmol/L (5-15); CHLORIDE,CL 100 mmol/L (98-107); SODIUM,NA 136 mmol/L (136-145)
[2020-11-08] MEDS ORDERED: Aspirin 81 MG Tab.EC PO SCH (09:00)
[2020-11-08] MEDS ORDERED: Non-Formulary Medication 1 Each SUBCUT SCH (09:00)
[2020-11-08] MEDS ORDERED: Insulin Glargine,Hum.Rec.Anlog 100 UNIT/ML 3 ML Pen SUBCUT SCH ×2 (09:00)
[2020-11-08] MEDS ORDERED: Sodium Chloride 0.9% 1,000 ML IV SCH (10:00)
[2020-11-08] MEDS ORDERED: Insulin Glargine,Hum.Rec.Anlog 100 UNIT/ML 3 ML Pen SUBCUT ONE (11:00)
--- NOTE | 2020-11-08 11:53 | PCM.HP.2 ---
H&P History of Present Illness - General Date of Service: 11/08/20 Admit Problem/Dx: Admission Diagnosis/Problem Admission Diagnosis/Problem Dehydration Upper Abdomen Pain Score (Numeric/FACES): 4 - Related Data Allergies/Adverse Reactions: Allergies Allergy/AdvReac Type Severity Reaction Status Date / Time No Known Drug Allergies Allergy Unknown Other Verified 11/07/20 17:35 Home Medications: Home Meds Enalapril Maleate 20 mg PO DAILY 12/29/14 [History] Ibuprofen 400 tab PO DAILY 12/29/14 [History] Insulin Aspart [NovoLOG] See Protocol SQ QIDACANDBED 12/29/14 [History] Insulin Glarg,Human.Rec.Analog [LantUS] 45 unit SQ DAILY 12/29/14 [History] Multivitamin [Multivitamins] 1 tab PO DAILY 12/29/14 [History] Sertraline HCl 50 mg PO 1700 12/29/14 [History] Simvastatin 40 mg PO DAILY 12/29/14 [History] metFORMIN [Glucophage XR] 500 mg PO DAILY 12/29/14 [History] Ferrous Sulfate 325 mg PO DAILY 11/03/20 [History] ondansetron HCL [Zofran] 4 mg PO Q6HR PRN #24 tablet 11/04/20 [Rx] Aspirin [Adult Low Dose Aspirin EC] 81 mg PO DAILY 11/07/20 [History] Acetaminophen/Diphenhydramine [Tylenol Pm Ex-Strength Caplet] 1 tab PO BEDTIME PRN 11/08/20 [History] Past Medical History HEENT History: Reports: Cataract, Impaired Vision Cardiovascular History: Reports: High Cholesterol, Hypertension Respiratory History: Reports: None Gastrointestinal History: Reports: Hemorrhoids Genitourinary History: Reports: Urinary Incontinence 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: Musculoskeletal History: Reports: Arthritis, Back Pain, Chronic, Other (See Below) Other Musculoskeletal History: 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 - injections Neurological History: Reports: None Psychiatric History: Reports: Anxiety, Depression Endocrine/Metabolic History: Reports: Diabetes, Type II, IDDM, Obesity/BMI 30+ Hematologic History: Reports: Iron Deficiency Immunologic History: Reports: None Oncologic (Cancer) History: Reports: None Dermatologic History: Reports: None - Infectious Disease History Infectious Disease History: Reports: Chicken Pox, Measles, Novel Coronavirus, Shingles - Past Surgical History Head Surgeries/Procedures: Reports: None HEENT Surgical History: Reports: Cataract Surgery Cardiovascular Surgical History: Reports: None Respiratory Surgical History: Reports: None GI Surgical History: Reports: Colonoscopy, Polypectomy Female Surgical History: Reports: None Endocrine Surgical History: Reports: None Neurological Surgical History: Reports: None Musculoskeletal Surgical History: Reports: None Oncologic Surgical History: Reports: None Dermatological Surgical History: Reports: None Social & Family History - Family History Family Medical History: No Pertinent Family History - Tobacco Use Tobacco Use Status *Q: Former Tobacco User Used Tobacco, but Quit: Yes Month/Year Tobacco Last Used: quit 1991 - Caffeine Use Caffeine Use: Reports: Soda - Recreational Drug Use Recreational Drug Use: No H&P Review of Systems - Review of Systems: Review Of Systems: See Below General: Reports: Malaise, Weakness, Fatigue, Decreased Appetite. Denies: Fever, Chills HEENT: Reports: No Symptoms Pulmonary: Reports: No Symptoms. Denies: Shortness of Breath, Cough Cardiovascular: Reports: No Symptoms. Denies: Chest Pain, Palpitations, Edema Gastrointestinal: Reports: Diarrhea (this weekend, none today), Decreased Appetite, Nausea. Denies: Abdominal Pain, Distension, Vomiting Musculoskeletal: Reports: No Symptoms Skin: Reports: No Symptoms Psychiatric: Reports: No Symptoms Neurological: Reports: No Symptoms Hematologic/Lymphatic: Reports: No Symptoms Immunologic: Reports: No Symptoms Exam - Exam Exam: See Below - Vital Signs Vital Signs: Last Vital Signs Temp 96.9 F 11/08/20 08:21 Pulse 113 H 11/08/20 08:21 Resp 20 11/08/20 08:21 BP 153/62 H 11/08/20 08:21 Pulse Ox 97 11/08/20 08:21 Weight: 200 lb - Exam Quality Assessment: No: Supplemental Oxygen General: Alert, Oriented, Cooperative. No: Mild Distress HEENT: Conjunctiva Clear, Mucosa Moist & [place]: Supple Lungs: Clear to Auscultation, Normal Respiratory Effort. No: Crackles, Wheezing Cardiovascular: Regular Rhythm, Tachycardia. No: Systolic Murmur GI/Abdominal Exam: Normal Bowel Sounds, Soft, Non-Tender, No Distention (Female) Exam: Deferred Rectal (Female) Exam: Deferred Back Exam: Normal Inspection Extremities: Normal Inspection, Normal Range of Motion, Non-Tender, No Pedal Edema, Normal Capillary Refill Peripheral Pulses: 2+: Dorsalis Pedis (L), Dorsalis Pedis (R) Skin: Warm, Dry, Cool, Other (pale) Neurological: Normal Speech Neuro Extensive - Mental Status: Alert, Oriented x3 Psychiatric: Alert, Normal Affect - Patient Data Lab Results Last 24 hrs: Laboratory Results - last 24 hr 11/07/20 11/07/20 11/07/20 Range/Units 17:09 17:09 18:50 WBC 9.29 (5.00-10.00) 10^3/uL RBC 4.87 (3.80-5.50) 10^6/uL Hgb 12.3 (12.0-16.0) g/dL Hct 38.1 (37.0-47.0) % MCV 78.2 L D (82.0-92.0) fL MCH 25.3 L (27.0-31.0) pg MCHC 32.3 (32.0-36.0) g/dL RDW 13.9 (11.5-14.5) % Plt Count 413 H D (150-400) 10^3/uL MPV 9.6 (7.4-10.4) fL Immature Gran % (Auto) 1.1 (0.0-5.0) % Neut % (Auto) 76.2 H (50.0-70.0) % Lymph % (Auto) 7.5 L (20.0-40.0) % [place] % (Auto) 14.3 H (2.0-8.0) % Eos % (Auto) 0.8 L (1.0-3.0) % Baso % (Auto) 0.1 (0.0-1.0) % Neut # (Auto) 7.08 H (2.50-7.00) 10^3/uL Lymph # (Auto) 0.70 L (1.00-4.00) 10^3/uL [place] # (Auto) 1.33 H (0.10-0.80) 10^3/uL Eos # (Auto) 0.07 L (0.10-0.30) 10^3/uL Baso # (Auto) 0.01 (0.00-0.10) 10^3/uL Immature Gran # (Auto) 0.10 (0.00-0.50) 10^3/uL Sodium 136 (136-145) mmol/L Potassium 3.3 L (3.5-5.1) mmol/L Chloride 95 L (98-107) mmol/L Carbon Dioxide 13.4 L D (21.0-32.0) mmol/L Anion Gap 30.9 H (5-15) mmol/L BUN 44 H (7-18) mg/dL Creatinine 0.98 (0.51-1.17) mg/dL Est Cr Clr Drug Dosing 46.78 mL/min Estimated GFR (MDRD) 56 mL/min Glucose 236 H (70-140) mg/dL POC Glucose (70-140) mg/dL Hemoglobin A1c (4.3-5.7) % Calcium 8.7 (8.7-10.3) mg/dL Magnesium (1.8-2.4) mg/dL Total Bilirubin 0.7 (0.2-1.0) mg/dL AST 13 L (15-37) U/L ALT 16 (14-63) U/L Alkaline Phosphatase 117 H (46-116) U/L Total Protein 7.4 (6.4-8.2) g/dL Albumin 2.79 L (3.40-5.00) g/dL Lipase 25 L (73-393) U/L Specimen Type Urinvoid Urine Color Yellow (YELLOW) Urine Appearance Clear (CLEAR) Urine pH 5.5 (5.0-9.0) Ur Specific [place] >= 1.030 (1.005-1.030) Urine Protein 100 H (NEGATIVE) mg/dL Urine Glucose (UA) Negative (NEGATIVE) mg/dL Urine Ketones >=160 H (NEGATIVE) mg/dL Urine Occult Blood Trace-lysed H (NEGATIVE) Urine Nitrite Negative (NEGATIVE) Urine Bilirubin Small H (NEGATIVE) Urine Urobilinogen 0.2 (0.2-1.0) E.U./dL Ur Leukocyte Esterase Negative (NEGATIVE) Urine RBC 0-5 (0-5) /HPF Urine WBC 0-5 (0-5) /HPF Ur Epithelial Cells Few /LPF Urine Bacteria Rare (NONE TO FEW) /HPF SARS CoV-2 RNA Rapid KATINA (NEGATIVE) 11/07/20 11/07/20 11/07/20 Range/Units 19:10 19:46 21:18 WBC (5.00-10.00) 10^3/uL RBC (3.80-5.50) 10^6/uL Hgb (12.0-16.0) g/dL Hct (37.0-47.0) % MCV (82.0-92.0) fL MCH (27.0-31.0) pg MCHC (32.0-36.0) g/dL RDW (11.5-14.5) % Plt Count (150-400) 10^3/uL MPV (7.4-10.4) fL Immature Gran % (Auto) (0.0-5.0) % Neut % (Auto) (50.0-70.0) % Lymph % (Auto) (20.0-40.0) % [place] % (Auto) (2.0-8.0) % Eos % (Auto) (1.0-3.0) % Baso % (Auto) (0.0-1.0) % Neut # (Auto) (2.50-7.00) 10^3/uL Lymph # (Auto) (1.00-4.00) 10^3/uL [place] # (Auto) (0.10-0.80) 10^3/uL Eos # (Auto) (0.10-0.30) 10^3/uL Baso # (Auto) (0.00-0.10) 10^3/uL Immature Gran # (Auto) (0.00-0.50) 10^3/uL Sodium (136-145) mmol/L Potassium (3.5-5.1) mmol/L Chloride (98-107) mmol/L Carbon Dioxide (21.0-32.0) mmol/L Anion Gap (5-15) mmol/L BUN (7-18) mg/dL Creatinine (0.51-1.17) mg/dL Est Cr Clr Drug Dosing mL/min Estimated GFR (MDRD) mL/min Glucose (70-140) mg/dL POC Glucose 256 H (70-140) mg/dL Hemoglobin A1c 8.3 H (4.3-5.7) % Calcium (8.7-10.3) mg/dL Magnesium (1.8-2.4) mg/dL Total Bilirubin (0.2-1.0) mg/dL AST (15-37) U/L ALT (14-63) U/L Alkaline Phosphatase (46-116) U/L Total Protein (6.4-8.2) g/dL Albumin (3.40-5.00) g/dL Lipase (73-393) U/L Specimen Type Urine Color (YELLOW) Urine Appearance (CLEAR) Urine pH (5.0-9.0) Ur Specific [place] (1.005-1.030) Urine Protein (NEGATIVE) mg/dL Urine Glucose (UA) (NEGATIVE) mg/dL Urine Ketones (NEGATIVE) mg/dL Urine Occult Blood (NEGATIVE) Urine Nitrite (NEGATIVE) Urine Bilirubin (NEGATIVE) Urine Urobilinogen (0.2-1.0) E.U./dL Ur Leukocyte Esterase (NEGATIVE) Urine RBC (0-5) /HPF Urine WBC (0-5) /HPF Ur Epithelial Cells /LPF Urine Bacteria (NONE TO FEW) /HPF SARS CoV-2 RNA Rapid KATINA Negative (NEGATIVE) 11/08/20 Range/Units 07:28 WBC (5.00-10.00) 10^3/uL RBC (3.80-5.50) 10^6/uL Hgb (12.0-16.0) g/dL Hct (37.0-47.0) % MCV (82.0-92.0) fL MCH (27.0-31.0) pg MCHC (32.0-36.0) g/dL RDW (11.5-14.5) % Plt Count (150-400) 10^3/uL MPV (7.4-10.4) fL Immature Gran % (Auto) (0.0-5.0) % Neut % (Auto) (50.0-70.0) % Lymph % (Auto) (20.0-40.0) % [place] % (Auto) (2.0-8.0) % Eos % (Auto) (1.0-3.0) % Baso % (Auto) (0.0-1.0) % Neut # (Auto) (2.50-7.00) 10^3/uL Lymph # (Auto) (1.00-4.00) 10^3/uL [place] # (Auto) (0.10-0.80) 10^3/uL Eos # (Auto) (0.10-0.30) 10^3/uL Baso # (Auto) (0.00-0.10) 10^3/uL Immature Gran # (Auto) (0.00-0.50) 10^3/uL Sodium 136 (136-145) mmol/L Potassium 4.6 (3.5-5.1) mmol/L Chloride 100 (98-107) mmol/L Carbon Dioxide 7.4 L (21.0-32.0) mmol/L Anion Gap 33.2 H (5-15) mmol/L BUN 38 H (7-18) mg/dL Creatinine 0.89 (0.51-1.17) mg/dL Est Cr Clr Drug Dosing 49.35 mL/min Estimated GFR (MDRD) > 60 mL/min Glucose 315 H (70-140) mg/dL POC Glucose (70-140) mg/dL Hemoglobin A1c (4.3-5.7) % Calcium 8.2 L (8.7-10.3) mg/dL Magnesium 1.6 L (1.8-2.4) mg/dL Total Bilirubin 0.6 (0.2-1.0) mg/dL AST 10 L (15-37) U/L ALT 16 (14-63) U/L Alkaline Phosphatase 125 H (46-116) U/L Total Protein 7.0 (6.4-8.2) g/dL Albumin 2.48 L (3.40-5.00) g/dL Lipase (73-393) U/L Specimen Type Urine Color (YELLOW) Urine Appearance (CLEAR) Urine pH (5.0-9.0) Ur Specific [place] (1.005-1.030) Urine Protein (NEGATIVE) mg/dL Urine Glucose (UA) (NEGATIVE) mg/dL Urine Ketones (NEGATIVE) mg/dL Urine Occult Blood (NEGATIVE) Urine Nitrite (NEGATIVE) Urine Bilirubin (NEGATIVE) Urine Urobilinogen (0.2-1.0) E.U./dL Ur Leukocyte Esterase (NEGATIVE) Urine RBC (0-5) /HPF Urine WBC (0-5) /HPF Ur Epithelial Cells /LPF Urine Bacteria (NONE TO FEW) /HPF SARS CoV-2 RNA Rapid KATINA (NEGATIVE) Result Diagrams: 11/08/20 20:50 11/09/20 05:05 Sepsis Event Note - Evaluation Sepsis Screening Result: No Definite Risk - Focused Exam Vital Signs: Vital Signs Temp Pulse Resp BP Pulse Ox 11/08/20 08:21 96.9 F 113 H 20 153/62 H 97 11/08/20 05:31 96.7 F L 112 H 14 139/50 L 97 11/08/20 03:55 96.7 F L 112 H 20 133/54 L 96 Problem List Initiated/Reviewed/Updated: Yes Orders Last 24hrs: Active Orders 24 hr Category Date Time Status Patient Status [ADT] Routine ADT 11/07/20 19:43 Active Blood Glucose Check, Bedside [RC] QIDACANDBED Care 11/07/20 21:03 Active Oxygen Therapy [RC] .PRN Care 11/07/20 19:43 Active Peripheral IV Care [RC] Care 11/07/20 17:09 Active Up With Assistance [RC] ASDIRECTED Care 11/07/20 19:43 Active VTE/DVT Education [RC] DAILY Care 11/07/20 19:43 Active Vital Signs [RC] 03,07,11,15,19,23 Care 11/07/20 19:43 Active [employer] Diet [DIET] Diet 11/07/20 Dinner Active SED RATE [REF] Stat Lab 11/08/20 07:28 Received Aspirin [Halfprin] Med 11/08/20 09:00 Active 81 mg PO DAILY Dextrose 50% in Water Med 11/07/20 21:03 Active 50 ml IVPUSH ASDIRECTED PRN Glucagon,Human Recombinant [GlucaGen] Med 11/07/20 21:03 Active 1 mg IM ASDIRECTED PRN Insulin Aspart [NovoLOG] Med 11/08/20 08:00 Active See Protocol SUBCUT WITHMEALSANDBED Insulin Glargine,Hum.Rec.Anlog [Semglee Pen] Med 11/08/20 09:00 Active 5 unit SUBCUT DAILY Melatonin Med 11/07/20 22:44 Active 3 mg PO BEDTIME PRN Ondansetron [Zofran ODT] Med 11/07/20 20:50 Active 4 mg PO Q6HR PRN Ondansetron [Zofran] Med 11/07/20 19:43 Active 4 mg IV Q6H PRN Sodium Chloride 0.9% [Normal Saline] 1,000 ml Med 11/08/20 10:00 Active IV ASDIRECTED Sodium Chloride 0.9% [Saline Flush] Med 11/07/20 17:09 Active 10 ml FLUSH Q8HR PRN Peripheral IV Insertion Adult [OM.PC] Routine Oth 11/07/20 17:09 Ordered Resuscitation Status Routine Resus Stat 11/07/20 19:43 Ordered Medication Orders Aspirin (Aspirin 81 Mg Tab.Ec) 81 mg PO DAILY REPLACED BY [facility] Last Admin: 11/08/20 08:14 Dose: 81 mg Documented by: TAWANA Dextrose/Water (50% Dextrose In Water 50 Ml Syringe) 50 ml IVPUSH ASDIRECTED PRN PRN Reason: Hypoglycemia Glucagon (Glucagon,Human Recombinant 1 Mg Vial) 1 mg IM ASDIRECTED PRN PRN Reason: Hypoglycemia Sodium Chloride (Normal Saline) 1,000 mls @ 125 mls/hr IV ASDIRECTED SUPRIYA Last Admin: 11/08/20 09:40 Dose: 125 mls/hr Documented by: TAWANA Insulin Aspart (Insulin Aspart 100 Units/Ml 3 Ml Pen) 0 unit SUBCUT WITHMEALSANDBED REPLACED BY [facility]; Protocol Last Admin: 11/08/20 08:14 Dose: 3 units Documented by: TAWANA Insulin Glargine (Insulin Glargine,Hum.Rec.Anlog 100 Unit/Ml 3 Ml Pen) 5 unit SUBCUT DAILY REPLACED BY [facility] Last Admin: 11/08/20 08:16 Dose: 5 units Documented by: TAWANA Melatonin (Melatonin 3 Mg Tab) 3 mg PO BEDTIME PRN PRN Reason: Insomnia Last Admin: 11/07/20 23:00 Dose: 3 mg Documented by: KOREY Ondansetron HCl (Ondansetron 4 Mg/2 Ml Sdv) 4 mg IV Q6H PRN PRN Reason: Nausea/Vomiting Last Admin: 11/07/20 22:40 Dose: 4 mg Documented by: KOREY Ondansetron HCl (Ondansetron 4 Mg Tab.Dis) 4 mg PO Q6HR PRN PRN Reason: Nausea Last Admin: 11/08/20 04:57 Dose: 4 mg Documented by: KOREY Sodium Chloride (Sodium Chloride 0.9% 10 Ml Syringe) 10 ml FLUSH Q8HR PRN PRN Reason: keep vein open Assessment/Plan Comment:: HPI summary: Jannet is a 70yF who was tested for COVID at the [facility] on Friday11/06/20, the result of which was positive. Arrangements were made for her to receive IV fluids and REGEN-COV at [facility] Friday am. Patient tolerated this well. She then called [facility] on Friday reporting diarrhea and was advised to try immodium. Patient subsequently presented to the [facility] ER by last evening due to nausea, dizziness, weakness symptoms related to COVID. ED course: Afebrile, normotensive in ER. Tachycardia noted. Oxygenation stable on room air. CXR negative. Na 136, K 3.3, BUN 44, Creatinine 0.98. Glucose 256, Alk phos 117, Albumin 2.79, Anion gap 30.9, Urine ketones > 160. She was admitted to observation status for IV fluids which initially was ordered as NS + 40 mEq KCl @ 125ml/hr due to mild hypokalemia per Dr Valdez. Patient restarted on her home medications upon admission including her lantus, however this was o rdered at 5 units daily, home dose is 45 units daily in addition to low dose novolog ssi. Hospital course: 11/08/20: Patient rather nauseated upon rounds this morning, she is feeling quite ill. Tachycardia persists, will start cardiac monitoring. Patient quite ill appearing and pale. Lung sounds clear, HR tachy and regular. Bowel sounds present, abdomen soft, NT. Additional 10 units of lantus to be given in addition to 5 given this morning due to blood glucose of 315. No morning labs were ordered, will order complete recommended admission panel per [place] COVID guidelines incluidng CBC, CK, CRP, LDH, procal, PT/INR, PTT, lactic acid, Mg and will obtain ABG's due to concern for acidosis given initial results in ER. Will hold off on d-dimer as patient denies SOB and is on room air. Consider adding this if indicated based on clinical course. Hospitalization problems and plan: # COVID-19 - normal oxygenation on room air, will hold off on ramdesevir # Tachycardia # Dehydration # Severe nausea without vomiting # Hypokalemia, mild; improved # Ketonuria # Anion gap acidosis # Weakness - Started cardiac monitoring given tachycardia - Stopped IV fluids with added KCl - changed to NS as K normalized on am labs - Additional labs ordered as follows: CBC, CK, CRP, LDH, procal, PT/INR, PTT, lactic acid, ABG's - Continue zofran Q4-6 PRN Chronic, stable conditions: # HTN - on enalapril 20mg PO daily # HLD - on zocor 40mg PO daily # DM TII w/o complication, custodial insulin use - on metformin XL 500mg PO daily, novolog sliding scale QID, lantus 45u daily, asa 325mg PO daily # Iron deficiency - on ferrous sulfate 325mg PO daily # Low back pain with sciatica - takes ibuprofen 400mg PO daily at home # Pap smear with atypical squamous cells of undetermined significance (ACS-US) Hospitalization details: # FEN: NS @ 125ml/hr, repeat labs this am, clear liquids # PPX: Started lovenox 40mg subq today # Code status: FULL CODE # Emergency contact: # Disposition: Patient admitted on observation status for dehydration and IV fluids r/t COVID. Concern for additional hospital problems given initial ER lab findings. Discharge plan to be determined based on clinical course, patient status may need to be changed to inpatient today for further monitoring and treatment.
[2020-11-08] MEDS: Ondansetron 4 MG/2 ML SDV IV PRN ×2 (12:17→16:25)
[2020-11-08] MEDS: Enoxaparin 40 MG/0.4 ML Syringe SUBCUT SCH (13:02)
[2020-11-08 13:42] LABS: O2 DELIVERY DEVICE ROOM AIR
[2020-11-08 13:43] LABS: PO2 ARTERIAL 105 mmHG (80-105)
[2020-11-08 13:44] LABS: BASE EXCESS ARTERIAL -23 mmol/L (-2-3); BICARBONATE,ARTERIAL 3.8 mmol/L (22-26); O2 SATURATION ARTERIAL 96 % (95-98)
[2020-11-08 13:47] LABS: PCO2 ARTERIAL 12 mmHG (35-45)
[2020-11-08] MEDS ORDERED: Sodium Chloride 0.9% 1,000 ML IV ONE (13:59)
[2020-11-08 14:34] LABS: PTT,PARTIAL THROMBOPLSTIN TIME 30.5 SEC (22.8-31.4)
[2020-11-08 14:43] LABS: ANION GAP 32.8 mmol/L (5-15); CHLORIDE,CL 102 mmol/L (98-107); SODIUM,NA 137 mmol/L (136-145)
[2020-11-08] MEDS ORDERED: Dextrose 5% in Water 1,000 ML IV SCH (16:00)
--- NOTE | 2020-11-08 16:01 | PCM.CODE ---
H&P History of Present Illness - General Date of Service: 11/08/20 Admit Problem/Dx: Admission Diagnosis/Problem Admission Diagnosis/Problem Dehydration Source of Information: Patient, Provider (INÉS Bond), RN - History of Present Illness Initial Comments - Free Text/Narative: See Assessment and Plan. - Related Data Allergies/Adverse Reactions: Allergies Allergy/AdvReac Type Severity Reaction Status Date / Time No Known Drug Allergies Allergy Unknown Other Verified 11/07/20 17:35 Home Medications: Home Meds Enalapril Maleate 20 mg PO DAILY 12/29/14 [History] Ibuprofen 400 tab PO DAILY 12/29/14 [History] Insulin Aspart [NovoLOG] See Protocol SQ QIDACANDBED 12/29/14 [History] Insulin Glarg,Human.Rec.Analog [LantUS] 45 unit SQ DAILY 12/29/14 [History] Multivitamin [Multivitamins] 1 tab PO DAILY 12/29/14 [History] Sertraline HCl 50 mg PO 1700 12/29/14 [History] Simvastatin 40 mg PO DAILY 12/29/14 [History] metFORMIN [Glucophage XR] 500 mg PO DAILY 12/29/14 [History] Ferrous Sulfate 325 mg PO DAILY 11/03/20 [History] ondansetron HCL [Zofran] 4 mg PO Q6HR PRN #24 tablet 11/04/20 [Rx] Aspirin [Adult Low Dose Aspirin EC] 81 mg PO DAILY 11/07/20 [History] Acetaminophen/Diphenhydramine [Tylenol Pm Ex-Strength Caplet] 1 tab PO BEDTIME PRN 11/08/20 [History] Exam - Exam Exam: See Below - Vital Signs Vital Signs: Last Vital Signs Temp 36.8 C 11/08/20 15:45 Pulse 114 H 11/08/20 15:45 Resp 24 H 11/08/20 15:45 BP 174/79 H 11/08/20 15:45 Pulse Ox 98 11/08/20 15:45 Weight: 90.718 kg - Exam Physical Exam Comments:: GENERAL: Elderly white female lying in hospital bed appearing ill. HEENT: Normocephalic, atraumatic. Conjunctiva clear. Nares patent without discharge. Mucous membranes moist, posterior pharynx unremarkable. NECK: Supple, no masses. CV: Tachycardic, regular rhythm, no murmurs, rubs, or gallops. 2+ radial pulses. PULMONARY: Tachypneic, clear to auscultation bilaterally, no wheezes, rales, or rhonchi. ABDOMEN: Positive bowel sounds, soft, nontender, nondistended. EXTREMITIES: No edema, cyanosis, or clubbing. 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 MUSCULOSKELETAL: Moves all extremities well. NEUROLOGICAL: No obvious deficits. DERMATOLOGIC: No rashes or suspicious lesions in exposed areas. PSYCHIATRIC: Tired appearing, interactive, appropriate affect. Course - Vital Signs Last Recorded V/S: Last Vital Signs Temp 36.8 C 11/08/20 15:45 Pulse 114 H 11/08/20 15:45 Resp 24 H 11/08/20 15:45 BP 174/79 H 11/08/20 15:45 Pulse Ox 98 11/08/20 15:45 - Orders/Labs/Meds Orders: Active Orders 24 hr Category Date Time Status Admission Status [Patient Status] [ADT] Routine ADT 11/08/20 15:00 Active Blood Glucose Check, Bedside [RC] Q1HR Care 11/08/20 15:47 Active Blood Glucose Check, Bedside [RC] QIDACANDBED Care 11/07/20 21:03 Active Cardiac Monitoring [RC] . DIRECTED Care 11/08/20 13:35 Active Intake and Output Strict [RC] ASDIRECTED Care 11/08/20 15:49 Active Oxygen Therapy [RC] .PRN Care 11/07/20 19:43 Active Peripheral IV Care [RC] Care 11/07/20 17:09 Active Up With Assistance [RC] ASDIRECTED Care 11/07/20 19:43 Active VTE/DVT Education [RC] DAILY Care 11/07/20 19:43 Active Vital Signs [RC] 03,07,11,15,19,23 Care 11/07/20 19:43 Active [place] Diet [DIET] Diet 11/07/20 Dinner Active B-HYDROXYBUTYRATE [REF] Routine Lab 11/08/20 15:33 Ordered BMP [BASIC METABOLIC PANEL,BMP] [CHEM] Q6H Lab 11/08/20 21:00 Ordered BMP [BASIC METABOLIC PANEL,BMP] [CHEM] Q6H Lab 11/09/20 03:00 Ordered BMP [BASIC METABOLIC PANEL,BMP] [CHEM] Q6H Lab 11/09/20 09:00 Ordered BMP [BASIC METABOLIC PANEL,BMP] [CHEM] Q6H Lab 11/09/20 15:00 Ordered CBC WITH AUTO DIFF [HEME] AM Lab 11/09/20 05:11 Ordered CBC WITH AUTO DIFF [HEME] Routine Lab 11/08/20 21:00 Ordered LD [REF] Stat Lab 11/08/20 13:45 Received PROCALCITONIN [REF] Stat Lab 11/08/20 13:45 Received SED RATE [REF] Stat Lab 11/08/20 07:28 Received Aspirin [Halfprin] Med 11/08/20 09:00 Active 81 mg PO DAILY Dextrose 50% in Water Med 11/07/20 21:03 Active 50 ml IVPUSH ASDIRECTED PRN Enalapril Maleate [Enalapril Maleate] Med 11/09/20 09:00 Ordered 20 mg PO DAILY Enoxaparin [Lovenox] Med 11/08/20 13:00 Active 40 mg SUBCUT Q24H Glucagon,Human Recombinant [GlucaGen] Med 11/07/20 21:03 Active 1 mg IM ASDIRECTED PRN Insulin Regular in 0.9 % NACL [Myxredlin in NS 100 UNIT Med 11/08/20 15:45 Active /100 ML] 100 unit in 100 ml IV TITRATE Melatonin Med 11/07/20 22:44 Active 3 mg PO BEDTIME PRN Ondansetron [Zofran] Med 11/07/20 19:43 Active 4 mg IV Q6H PRN Sertraline HCl [Sertraline HCl] Med 11/08/20 17:00 Ordered 50 mg PO 1700 Simvastatin [Simvastatin] Med 11/09/20 09:00 Ordered 40 mg PO DAILY Sodium Chloride 0.9% [Saline Flush] Med 11/07/20 17:09 Active 10 ml FLUSH Q8HR PRN Peripheral IV Insertion Adult [OM.PC] Routine Oth 11/07/20 17:09 Ordered Resuscitation Status Routine Resus Stat 11/07/20 19:43 Ordered EKG 12 Lead [EK] Stat Ther 11/08/20 14:54 Ordered Medication Orders Aspirin (Aspirin 81 Mg Tab.Ec) 81 mg PO DAILY SUPRIYA Last Admin: 11/08/20 08:14 Dose: 81 mg Documented by: TAWANA Dextrose/Water (50% Dextrose In Water 50 Ml Syringe) 50 ml IVPUSH ASDIRECTED PRN PRN Reason: Hypoglycemia Enoxaparin Sodium (Enoxaparin 40 Mg/0.4 Ml Syringe) 40 mg SUBCUT Q24H SUPRIYA Last Admin: 11/08/20 13:02 Dose: 40 mg Documented by: TAWANA Glucagon (Glucagon,Human Recombinant 1 Mg Vial) 1 mg IM ASDIRECTED PRN PRN Reason: Hypoglycemia Insulin Regular in 0.9 % NACL (Myxredlin In Ns 100 Unit/100 Ml) 100 unit in 100 mls @ 9.072 mls/hr IV TITRATE SUPRIYA; Protocol Melatonin (Melatonin 3 Mg Tab) 3 mg PO BEDTIME PRN PRN Reason: Insomnia Last Admin: 11/07/20 23:00 Dose: 3 mg Documented by: KOREY Non-Formulary Medication (Simvastatin [Simvastatin]) 40 mg PO DAILY SUPRIYA Non-Formulary Medication (Sertraline Hcl [Sertraline Hcl]) 50 mg PO 1700 SUPRIYA Non-Formulary Medication (Enalapril Maleate [Enalapril Maleate]) 20 mg PO DAILY SUPRIYA Ondansetron HCl (Ondansetron 4 Mg/2 Ml Sdv) 4 mg IV Q6H PRN PRN Reason: Nausea/Vomiting Last Admin: 11/08/20 12:17 Dose: 4 mg Documented by: Admin: 11/07/20 22:40 Dose: 4 mg Documented by: KOREY Sodium Chloride (Sodium Chloride 0.9% 10 Ml Syringe) 10 ml FLUSH Q8HR PRN PRN Reason: keep vein open Labs: Laboratory Tests 11/07/20 11/07/20 11/07/20 Range/Units 17:09 17:09 18:50 WBC 9.29 (5.00-10.00) 10^3/uL RBC 4.87 (3.80-5.50) 10^6/uL Hgb 12.3 (12.0-16.0) g/dL Hct 38.1 (37.0-47.0) % MCV 78.2 L D (82.0-92.0) fL MCH 25.3 L (27.0-31.0) pg MCHC 32.3 (32.0-36.0) g/dL RDW 13.9 (11.5-14.5) % Plt Count 413 H D (150-400) 10^3/uL MPV 9.6 (7.4-10.4) fL Immature Gran % (Auto) 1.1 (0.0-5.0) % Neut % (Auto) 76.2 H (50.0-70.0) % Lymph % (Auto) 7.5 L (20.0-40.0) % [place] % (Auto) 14.3 H (2.0-8.0) % Eos % (Auto) 0.8 L (1.0-3.0) % Baso % (Auto) 0.1 (0.0-1.0) % Neut # (Auto) 7.08 H (2.50-7.00) 10^3/uL Lymph # (Auto) 0.70 L (1.00-4.00) 10^3/uL [place] # (Auto) 1.33 H (0.10-0.80) 10^3/uL Eos # (Auto) 0.07 L (0.10-0.30) 10^3/uL Baso # (Auto) 0.01 (0.00-0.10) 10^3/uL Immature Gran # (Auto) 0.10 (0.00-0.50) 10^3/uL Add Manual Diff Neutrophils % (Manual) (50-70) % Band Neutrophils % (4-12) % Lymphocytes % (Manual) (20-40) % Monocytes % (Manual) (2-8) % Platelet Estimate PT (9.2-11.2) SEC INR (0.9-1.1) APTT (22.8-31.4) SEC D-Dimer, Quantitative (<400) ng/mL ABG pH (7.35-7.45) ABG pCO2 (35-45) mmHG ABG pO2 (80-105) mmHG ABG HCO3 (22-26) mmol/L ABG Total CO2 (23-27) mmol/L ABG O2 Saturation (95-98) % ABG Base Excess (-2-3) mmol/L O2 Delivery Device Sodium 136 (136-145) mmol/L Potassium 3.3 L (3.5-5.1) mmol/L Chloride 95 L (98-107) mmol/L Carbon Dioxide 13.4 L D (21.0-32.0) mmol/L Anion Gap 30.9 H (5-15) mmol/L BUN 44 H (7-18) mg/dL Creatinine 0.98 (0.51-1.17) mg/dL Est Cr Clr Drug Dosing 46.78 mL/min Estimated GFR (MDRD) 56 mL/min Glucose 236 H (70-140) mg/dL POC Glucose (70-140) mg/dL Hemoglobin A1c (4.3-5.7) % Lactic Acid (0.4-2.0) mmol/L Calcium 8.7 (8.7-10.3) mg/dL Magnesium (1.8-2.4) mg/dL Total Bilirubin 0.7 (0.2-1.0) mg/dL AST 13 L (15-37) U/L ALT 16 (14-63) U/L Alkaline Phosphatase 117 H (46-116) U/L Creatine Kinase (26-276) U/L Troponin I High Sens (0-51.000) pg/mL C-Reactive Protein (0.0-0.9) mg/dL Total Protein 7.4 (6.4-8.2) g/dL Albumin 2.79 L (3.40-5.00) g/dL Lipase 25 L (73-393) U/L Specimen Type Urinvoid Urine Color Yellow (YELLOW) Urine Appearance Clear (CLEAR) Urine pH 5.5 (5.0-9.0) Ur Specific Sharples >= 1.030 (1.005-1.030) Urine Protein 100 H (NEGATIVE) mg/dL Urine Glucose (UA) Negative (NEGATIVE) mg/dL Urine Ketones >=160 H (NEGATIVE) mg/dL Urine Occult Blood Trace-lysed H (NEGATIVE) Urine Nitrite Negative (NEGATIVE) Urine Bilirubin Small H (NEGATIVE) Urine Urobilinogen 0.2 (0.2-1.0) E.U./dL Ur Leukocyte Esterase Negative (NEGATIVE) Urine RBC 0-5 (0-5) /HPF Urine WBC 0-5 (0-5) /HPF Ur Epithelial Cells Few /LPF Urine Bacteria Rare (NONE TO FEW) /HPF SARS CoV-2 RNA Rapid KATINA (NEGATIVE) 11/07/20 11/07/20 11/07/20 Range/Units 19:10 19:46 21:18 WBC (5.00-10.00) 10^3/uL RBC (3.80-5.50) 10^6/uL Hgb (12.0-16.0) g/dL Hct (37.0-47.0) % MCV (82.0-92.0) fL MCH (27.0-31.0) pg MCHC (32.0-36.0) g/dL RDW (11.5-14.5) % Plt Count (150-400) 10^3/uL MPV (7.4-10.4) fL Immature Gran % (Auto) (0.0-5.0) % Neut % (Auto) (50.0-70.0) % Lymph % (Auto) (20.0-40.0) % [place] % (Auto) (2.0-8.0) % Eos % (Auto) (1.0-3.0) % Baso % (Auto) (0.0-1.0) % Neut # (Auto) (2.50-7.00) 10^3/uL Lymph # (Auto) (1.00-4.00) 10^3/uL [place] # (Auto) (0.10-0.80) 10^3/uL Eos # (Auto) (0.10-0.30) 10^3/uL Baso # (Auto) (0.00-0.10) 10^3/uL Immature Gran # (Auto) (0.00-0.50) 10^3/uL Add Manual Diff Neutrophils % (Manual) (50-70) % Band Neutrophils % (4-12) % Lymphocytes % (Manual) (20-40) % Monocytes % (Manual) (2-8) % Platelet Estimate PT (9.2-11.2) SEC INR (0.9-1.1) APTT (22.8-31.4) SEC D-Dimer, Quantitative (<400) ng/mL ABG pH (7.35-7.45) ABG pCO2 (35-45) mmHG ABG pO2 (80-105) mmHG ABG HCO3 (22-26) mmol/L ABG Total CO2 (23-27) mmol/L ABG O2 Saturation (95-98) % ABG Base Excess (-2-3) mmol/L O2 Delivery Device Sodium (136-145) mmol/L Potassium (3.5-5.1) mmol/L Chloride (98-107) mmol/L Carbon Dioxide (21.0-32.0) mmol/L Anion Gap (5-15) mmol/L BUN (7-18) mg/dL Creatinine (0.51-1.17) mg/dL Est Cr Clr Drug Dosing mL/min Estimated GFR (MDRD) mL/min Glucose (70-140) mg/dL POC Glucose 256 H (70-140) mg/dL Hemoglobin A1c 8.3 H (4.3-5.7) % Lactic Acid (0.4-2.0) mmol/L Calcium (8.7-10.3) mg/dL Magnesium (1.8-2.4) mg/dL Total Bilirubin (0.2-1.0) mg/dL AST (15-37) U/L ALT (14-63) U/L Alkaline Phosphatase (46-116) U/L Creatine Kinase (26-276) U/L Troponin I High Sens (0-51.000) pg/mL C-Reactive Protein (0.0-0.9) mg/dL Total Protein (6.4-8.2) g/dL Albumin (3.40-5.00) g/dL Lipase (73-393) U/L Specimen Type Urine Color (YELLOW) Urine Appearance (CLEAR) Urine pH (5.0-9.0) Ur Specific Sharples (1.005-1.030) Urine Protein (NEGATIVE) mg/dL Urine Glucose (UA) (NEGATIVE) mg/dL Urine Ketones (NEGATIVE) mg/dL Urine Occult Blood (NEGATIVE) Urine Nitrite (NEGATIVE) Urine Bilirubin (NEGATIVE) Urine Urobilinogen (0.2-1.0) E.U./dL Ur Leukocyte Esterase (NEGATIVE) Urine RBC (0-5) /HPF Urine WBC (0-5) /HPF Ur Epithelial Cells /LPF Urine Bacteria (NONE TO FEW) /HPF SARS CoV-2 RNA Rapid KATINA Negative (NEGATIVE) 11/08/20 11/08/20 11/08/20 Range/Units 07:28 12:46 13:45 WBC 18.70 H (5.00-10.00) 10^3/uL RBC 4.90 (3.80-5.50) 10^6/uL Hgb 12.4 (12.0-16.0) g/dL Hct 40.8 (37.0-47.0) % MCV 83.3 D (82.0-92.0) fL MCH 25.3 L (27.0-31.0) pg MCHC 30.4 L (32.0-36.0) g/dL RDW 14.5 (11.5-14.5) % Plt Count 484 H (150-400) 10^3/uL MPV 10.1 (7.4-10.4) fL Immature Gran % (Auto) (0.0-5.0) % Neut % (Auto) (50.0-70.0) % Lymph % (Auto) (20.0-40.0) % [place] % (Auto) (2.0-8.0) % Eos % (Auto) (1.0-3.0) % Baso % (Auto) (0.0-1.0) % Neut # (Auto) (2.50-7.00) 10^3/uL Lymph # (Auto) (1.00-4.00) 10^3/uL [place] # (Auto) (0.10-0.80) 10^3/uL Eos # (Auto) (0.10-0.30) 10^3/uL Baso # (Auto) (0.00-0.10) 10^3/uL Immature Gran # (Auto) (0.00-0.50) 10^3/uL Add Manual Diff Yes Neutrophils % (Manual) 83 H (50-70) % Band Neutrophils % 6 (4-12) % Lymphocytes % (Manual) 2 L (20-40) % Monocytes % (Manual) 9 H (2-8) % Platelet Estimate Increased PT (9.2-11.2) SEC INR (0.9-1.1) APTT (22.8-31.4) SEC D-Dimer, Quantitative (<400) ng/mL ABG pH 7.12 L* (7.35-7.45) ABG pCO2 12 L* (35-45) mmHG ABG pO2 105 (80-105) mmHG ABG HCO3 3.8 L (22-26) mmol/L ABG Total CO2 5 L (23-27) mmol/L ABG O2 Saturation 96 (95-98) % ABG Base Excess -23 L (-2-3) mmol/L O2 Delivery Device Room air Sodium 136 (136-145) mmol/L Potassium 4.6 (3.5-5.1) mmol/L Chloride 100 (98-107) mmol/L Carbon Dioxide 7.4 L (21.0-32.0) mmol/L Anion Gap 33.2 H (5-15) mmol/L BUN 38 H (7-18) mg/dL Creatinine 0.89 (0.51-1.17) mg/dL Est Cr Clr Drug Dosing 49.35 mL/min Estimated GFR (MDRD) > 60 mL/min Glucose 315 H (70-140) mg/dL POC Glucose (70-140) mg/dL Hemoglobin A1c (4.3-5.7) % Lactic Acid (0.4-2.0) mmol/L Calcium 8.2 L (8.7-10.3) mg/dL Magnesium 1.6 L (1.8-2.4) mg/dL Total Bilirubin 0.6 (0.2-1.0) mg/dL AST 10 L (15-37) U/L ALT 16 (14-63) U/L Alkaline Phosphatase 125 H (46-116) U/L Creatine Kinase (26-276) U/L Troponin I High Sens (0-51.000) pg/mL C-Reactive Protein (0.0-0.9) mg/dL Total Protein 7.0 (6.4-8.2) g/dL Albumin 2.48 L (3.40-5.00) g/dL Lipase (73-393) U/L Specimen Type Urine Color (YELLOW) Urine Appearance (CLEAR) Urine pH (5.0-9.0) Ur Specific Shar[place] (1.005-1.030) Urine Protein (NEGATIVE) mg/dL Urine Glucose (UA) (NEGATIVE) mg/dL Urine Ketones (NEGATIVE) mg/dL Urine Occult Blood (NEGATIVE) Urine Nitrite (NEGATIVE) Urine Bilirubin (NEGATIVE) Urine Urobilinogen (0.2-1.0) E.U./dL Ur Leukocyte Esterase (NEGATIVE) Urine RBC (0-5) /HPF Urine WBC (0-5) /HPF Ur Epithelial Cells /LPF Urine Bacteria (NONE TO FEW) /HPF SARS CoV-2 RNA Rapid KATINA (NEGATIVE) 11/08/20 11/08/20 11/08/20 Range/Units 13:45 13:45 13:45 WBC (5.00-10.00) 10^3/uL RBC (3.80-5.50) 10^6/uL Hgb (12.0-16.0) g/dL Hct (37.0-47.0) % MCV (82.0-92.0) fL MCH (27.0-31.0) pg MCHC (32.0-36.0) g/dL RDW (11.5-14.5) % Plt Count (150-400) 10^3/uL MPV (7.4-10.4) fL Immature Gran % (Auto) (0.0-5.0) % Neut % (Auto) (50.0-70.0) % Lymph % (Auto) (20.0-40.0) % [place] % (Auto) (2.0-8.0) % Eos % (Auto) (1.0-3.0) % Baso % (Auto) (0.0-1.0) % Neut # (Auto) (2.50-7.00) 10^3/uL Lymph # (Auto) (1.00-4.00) 10^3/uL [place] # (Auto) (0.10-0.80) 10^3/uL Eos # (Auto) (0.10-0.30) 10^3/uL Baso # (Auto) (0.00-0.10) 10^3/uL Immature Gran # (Auto) (0.00-0.50) 10^3/uL Add Manual Diff Neutrophils % (Manual) (50-70) % Band Neutrophils % (4-12) % Lymphocytes % (Manual) (20-40) % Monocytes % (Manual) (2-8) % Platelet Estimate PT 11.8 H (9.2-11.2) SEC INR 1.2 H (0.9-1.1) APTT 30.5 (22.8-31.4) SEC D-Dimer, Quantitative (<400) ng/mL ABG pH (7.35-7.45) ABG pCO2 (35-45) mmHG ABG pO2 (80-105) mmHG ABG HCO3 (22-26) mmol/L ABG Total CO2 (23-27) mmol/L ABG O2 Saturation (95-98) % ABG Base Excess (-2-3) mmol/L O2 Delivery Device Sodium (136-145) mmol/L Potassium (3.5-5.1) mmol/L Chloride (98-107) mmol/L Carbon Dioxide (21.0-32.0) mmol/L Anion Gap (5-15) mmol/L BUN (7-18) mg/dL Creatinine (0.51-1.17) mg/dL Est Cr Clr Drug Dosing mL/min Estimated GFR (MDRD) mL/min Glucose (70-140) mg/dL POC Glucose (70-140) mg/dL Hemoglobin A1c (4.3-5.7) % Lactic Acid 0.8 (0.4-2.0) mmol/L Calcium (8.7-10.3) mg/dL Magnesium (1.8-2.4) mg/dL Total Bilirubin (0.2-1.0) mg/dL AST (15-37) U/L ALT (14-63) U/L Alkaline Phosphatase (46-116) U/L Creatine Kinase 46 (26-276) U/L Troponin I High Sens (0-51.000) pg/mL C-Reactive Protein > 11.0 H (0.0-0.9) mg/dL Total Protein (6.4-8.2) g/dL Albumin (3.40-5.00) g/dL Lipase (73-393) U/L Specimen Type Urine Color (YELLOW) Urine Appearance (CLEAR) Urine pH (5.0-9.0) Ur Specific Shar[place] (1.005-1.030) Urine Protein (NEGATIVE) mg/dL Urine Glucose (UA) (NEGATIVE) mg/dL Urine Ketones (NEGATIVE) mg/dL Urine Occult Blood (NEGATIVE) Urine Nitrite (NEGATIVE) Urine Bilirubin (NEGATIVE) Urine Urobilinogen (0.2-1.0) E.U./dL Ur Leukocyte Esterase (NEGATIVE) Urine RBC (0-5) /HPF Urine WBC (0-5) /HPF Ur Epithelial Cells /LPF Urine Bacteria (NONE TO FEW) /HPF SARS CoV-2 RNA Rapid KATINA (NEGATIVE) 11/08/20 11/08/20 11/08/20 Range/Units 13:45 13:45 13:45 WBC (5.00-10.00) 10^3/uL RBC (3.80-5.50) 10^6/uL Hgb (12.0-16.0) g/dL Hct (37.0-47.0) % MCV (82.0-92.0) fL MCH (27.0-31.0) pg MCHC (32.0-36.0) g/dL RDW (11.5-14.5) % Plt Count (150-400) 10^3/uL MPV (7.4-10.4) fL Immature Gran % (Auto) (0.0-5.0) % Neut % (Auto) (50.0-70.0) % Lymph % (Auto) (20.0-40.0) % [place] % (Auto) (2.0-8.0) % Eos % (Auto) (1.0-3.0) % Baso % (Auto) (0.0-1.0) % Neut # (Auto) (2.50-7.00) 10^3/uL Lymph # (Auto) (1.00-4.00) 10^3/uL [place] # (Auto) (0.10-0.80) 10^3/uL Eos # (Auto) (0.10-0.30) 10^3/uL Baso # (Auto) (0.00-0.10) 10^3/uL Immature Gran # (Auto) (0.00-0.50) 10^3/uL Add Manual Diff Neutrophils % (Manual) (50-70) % Band Neutrophils % (4-12) % Lymphocytes % (Manual) (20-40) % Monocytes % (Manual) (2-8) % Platelet Estimate PT (9.2-11.2) SEC INR (0.9-1.1) APTT (22.8-31.4) SEC D-Dimer, Quantitative 1990 H (<400) ng/mL ABG pH (7.35-7.45) ABG pCO2 (35-45) mmHG ABG pO2 (80-105) mmHG ABG HCO3 (22-26) mmol/L ABG Total CO2 (23-27) mmol/L ABG O2 Saturation (95-98) % ABG Base Excess (-2-3) mmol/L O2 Delivery Device Sodium 137 (136-145) mmol/L Potassium 4.6 (3.5-5.1) mmol/L Chloride 102 (98-107) mmol/L Carbon Dioxide 6.8 L (21.0-32.0) mmol/L Anion Gap 32.8 H (5-15) mmol/L BUN 35 H (7-18) mg/dL Creatinine 0.88 (0.51-1.17) mg/dL Est Cr Clr Drug Dosing 49.91 mL/min Estimated GFR (MDRD) > 60 mL/min Glucose 338 H (70-140) mg/dL POC Glucose (70-140) mg/dL Hemoglobin A1c (4.3-5.7) % Lactic Acid (0.4-2.0) mmol/L Calcium 8.3 L (8.7-10.3) mg/dL Magnesium 1.8 (1.8-2.4) mg/dL Total Bilirubin 0.5 (0.2-1.0) mg/dL AST 11 L (15-37) U/L ALT 18 (14-63) U/L Alkaline Phosphatase 134 H (46-116) U/L Creatine Kinase (26-276) U/L Troponin I High Sens 12.000 (0-51.000) pg/mL C-Reactive Protein (0.0-0.9) mg/dL Total Protein 7.0 (6.4-8.2) g/dL Albumin 2.48 L (3.40-5.00) g/dL Lipase (73-393) U/L Specimen Type Urine Color (YELLOW) Urine Appearance (CLEAR) Urine pH (5.0-9.0) Ur Specific Shar[place] (1.005-1.030) Urine Protein (NEGATIVE) mg/dL Urine Glucose (UA) (NEGATIVE) mg/dL Urine Ketones (NEGATIVE) mg/dL Urine Occult Blood (NEGATIVE) Urine Nitrite (NEGATIVE) Urine Bilirubin (NEGATIVE) Urine Urobilinogen (0.2-1.0) E.U./dL Ur Leukocyte Esterase (NEGATIVE) Urine RBC (0-5) /HPF Urine WBC (0-5) /HPF Ur Epithelial Cells /LPF Urine Bacteria (NONE TO FEW) /HPF SARS CoV-2 RNA Rapid KATINA (NEGATIVE) Meds: Medications Generic Name Dose Route Start Last Admin Trade Name Evita PRN Reason Stop Dose Admin Aspirin 81 mg 11/08/20 09:00 11/08/20 08:14 Aspirin 81 Mg Tab.Ec PO 81 mg DAILY SUPRIYA Administration Dextrose/Water 50 ml 11/07/20 21:03 50% Dextrose In Water 50 Ml Syringe IVPUSH ASDIRECTED PRN Hypoglycemia Enoxaparin Sodium 40 mg 11/08/20 13:00 11/08/20 13:02 Enoxaparin 40 Mg/0.4 Ml Syringe SUBCUT 40 mg Q24H SUPRIYA Administration Glucagon 1 mg 11/07/20 21:03 Glucagon,Human Recombinant 1 Mg Vial IM ASDIRECTED PRN Hypoglycemia Insulin Regular in 0.9 % NACL 100 unit in 100 mls @ 9.072 mls/hr 11/08/20 15:45 Myxredlin In Ns 100 Unit/100 Ml IV TITRATE SUPRIYA Protocol 0.1 UNITS/KG/HR Melatonin 3 mg 11/07/20 22:44 11/07/20 23:00 Melatonin 3 Mg Tab PO 3 mg BEDTIME PRN Administration Insomnia Non-Formulary Medication 40 mg 11/09/20 09:00 Simvastatin [Simvastatin] PO DAILY SUPRIYA Non-Formulary Medication 50 mg 11/08/20 17:00 Sertraline Hcl [Sertraline Hcl] PO 1700 SUPRIYA Non-Formulary Medication 20 mg 11/09/20 09:00 Enalapril Maleate [Enalapril Maleate] PO DAILY SUPRIYA Ondansetron HCl 4 mg 11/07/20 19:43 11/08/20 12:17 Ondansetron 4 Mg/2 Ml Sdv IV 4 mg Q6H PRN Administration Nausea/Vomiting Sodium Chloride 10 ml 11/07/20 17:09 Sodium Chloride 0.9% 10 Ml Syringe FLUSH Q8HR PRN keep vein open Discontinued Medications Generic Name Dose Route Start Last Admin Trade Name Evita PRN Reason Stop Dose Admin Sodium Chloride 1,000 mls @ 999 mls/hr 11/07/20 17:09 11/07/20 17:20 Normal Saline IV 11/07/20 18:09 999 mls/hr .BOLUS ONE Administration Potassium Chloride/Sodium Chloride 1,000 mls @ 125 mls/hr 11/07/20 20:00 11/08/20 05:31 Normal Saline With 40 Meq Kcl IV 125 mls/hr ASDIRECTED SUPRIYA Administration Sodium Chloride 1,000 mls @ 125 mls/hr 11/08/20 10:00 11/08/20 15:13 Normal Saline IV 150 mls/hr ASDIRECTED SUPRIYA Infusion Sodium Chloride 1,000 mls @ 999 mls/hr 11/08/20 13:59 11/08/20 14:34 Normal Saline IV 11/08/20 14:59 999 mls/hr .BOLUS ONE Administration Insulin Aspart 0 unit 11/08/20 08:00 11/08/20 12:19 Insulin Aspart 100 Units/Ml 3 Ml Pen SUBCUT 3 units WITHMEALSANDBED SUPRIYA Administration Protocol Insulin Glargine 15 unit 11/08/20 09:00 Insulin Glargine,Hum.Rec.Anlog 100 Unit/Ml 3 Ml Pen SUBCUT DAILY [facility] Insulin Glargine 5 unit 11/08/20 09:00 11/08/20 08:16 Insulin Glargine,Hum.Rec.Anlog 100 Unit/Ml 3 Ml Pen SUBCUT 5 units DAILY [facility] Administration Insulin Glargine 10 unit 11/09/20 11:00 Insulin Glargine,Hum.Rec.Anlog 100 Unit/Ml 3 Ml Pen SUBCUT 11/09/20 11:01 ONETIME ONE Insulin Glargine 10 unit 11/08/20 11:00 11/08/20 12:00 Insulin Glargine,Hum.Rec.Anlog 100 Unit/Ml 3 Ml Pen SUBCUT 11/08/20 11:01 10 units ONETIME ONE Administration Metoclopramide HCl 10 mg 11/07/20 18:36 11/07/20 18:40 Metoclopramide 10 Mg/2 Ml Sdv IVPUSH 11/07/20 18:37 10 mg ONETIME ONE Administration Non-Formulary Medication 5 each 11/08/20 09:00 Non-Formulary Medication 1 Each SUBCUT DAILY [facility] Ondansetron HCl 4 mg 11/07/20 17:09 11/07/20 17:29 Ondansetron 4 Mg/2 Ml Sdv IVPUSH 11/07/20 17:10 4 mg ONETIME ONE Administration Ondansetron HCl 4 mg 11/07/20 20:50 11/08/20 04:57 Ondansetron 4 Mg Tab.Dis PO 4 mg Q6HR PRN Administration Nausea Critical Care Note - Critical Care Note Total Time (mins): 75 Comments: I was asked to consult on patient by rounding provider, PETER Bond CNP, on the afternoon of 11/08/20 for metabolic acidosis noted on admission rounds on the morning of 11/08/20. Per rounding provider, patient had been admitted by overnight physician through the ED for progressive fatigue and nausea in the setting of previously diagnosed COVID-19. Onset of symptoms was on 10/26/20 with nausea, diarrhea, myalgias, and fatigue. Symptoms initially improved and then recurred prompting call to [facility] and subsequent testing for COVID-19 on 11/03/20, which was positive. She was seen by Dr. José Miguel Macias via telemedicine on that date and monoclonal antibody infusion was ordered and given on 11/04/20. Due to ongoing worsening, she was evaluated in the [facility] ED on the evening of 11/07/20. She denied diarrhea since 11/06/20. Laboratory evaluation reviewed by myself at time of consult notable for AG 30.9, CO2 13.4, K 3.3, BG 236, urine SG >1.030, urine ketones >160, and an otherwise overall normal CBC/CMP/lipase/UA. Chest XR without acute abnormality. Per the documented ED evaluation, she was admitted for COVID-related symptoms of severe nausea and dehydration. She was given NS w/ 40mEq KCl at 125cc/hr and ondansetron 4mg IV q6h prn. Today upon evaluation, she endorses severe fatigue, but denies other complaints, including NO headache, chest pain, palpitations, shortness of breath, cough, abdominal pain, nausea, diarrhea, or edema. She states that she has been feeling ill on-and-off over the past several days. Has been intermittently taking only partial doses of her insulin due to not eating much. Patient evaluated and plan of care discussed. She confirmed FULL CODE status. Additional evaluation obtained with labs and EKG, notable for ABG 7.12/12/105- 3.8. Anion gap further increased to 32.8 with CO2 on venous draw 6.8. BG 338. Discussed patient care with [facility] parts department supervisor regarding severe anion gap metabolic acidosis. After discussion, he favored primary etiology as DKA and recommended initiation of insulin drip with addition of D5W when blood sugars reached less than 200 in order to use drip as a means to primarily close anion gap, and not exclusive lower blood glucose. He also recommended VBG BID and metabolic panel at least q6h. Orders placed and plan of care discussed with patient and nursing staff as well as physician taking over call.
[2020-11-08] MEDS ORDERED: Sertraline 50 MG Tab PO SCH (17:00)
[2020-11-08] MEDS ORDERED: Sodium Chloride 0.9% 100 ML IV SCH (17:00)
[2020-11-08] MEDS ORDERED: Iopamidol 755 Mg/ML 75 ML Bottle IVPUSH ONE (17:07)
[2020-11-08] MEDS ORDERED: Sodium Chloride 0.9% 50 ML IV SCH (17:15)
--- NOTE | 2020-11-08 18:14 | CT ---
[id number] CT/CTA Chest EXAM: CT ANGIOGRAM CHEST INDICATION: ELEVATED D-DIMER, COVID +, TACHYCARDIA, TACHYPNEA. COMPARISON: None. DISCUSSION: No large central or lobar pulmonary arterial filling defects to suggest acute pulmonary embolism. Evaluation of the segmental and subsegmental pulmonary arteries is limited secondary to suboptimal bolus. No airspace consolidation. No suspicious pulmonary nodules or masses. No pneumothorax. No pleural or pericardial effusion. Normal heart size. No mediastinal, hilar or axillary lymphadenopathy. The thoracic esophagus is fluid-filled to the level of the mid thorax. The stomach is distended and fluid-filled. Additionally there are multiple distended loops of small bowel. No pneumatosis involving the visualized small bowel. IMPRESSION: 1. No large central or lobar pulmonary embolism. Evaluation of the segmental and subsegmental pulmonary arteries is limited secondary to suboptimal bolus. No secondary signs of acute pulmonary embolism. 2. Marked distention of the stomach as well as multiple visualized loops of small bowel. Evaluation is incomplete as only the upper abdomen is imaged however findings are concerning for small bowel obstruction. Additionally, there is fluid within the thoracic esophagus extending to the level of the mid thorax. Surgical consultation is recommended. Jl Salgado DO 11/08/20 1494 Thank you for allowing us to participate in the care of your patient.
[2020-11-08] MEDS: Lactated Ringers 1,000 ML IV SCH ×2 (18:56→23:58)
[2020-11-08] MEDS ORDERED: Ondansetron 4 MG/2 ML SDV IVPUSH ONE (19:44)
[2020-11-08] MEDS ORDERED: Sodium Chloride 0.9% 500 ML IV ONE (20:05)
--- NOTE | 2020-11-08 20:16 | CT ---
[id number] CT/CT Abdomen Pelvis WO IV EXAM: CT Abdomen Pelvis WO IV CLINICAL DATA: STOMACH DISTENSION. COMPARISON STUDY: None. FINDINGS: Mild pneumobilia, nonspecific. Correlation with instrumentation versus surgical history is recommended. Numerous fluid distended loops of small bowel without transition point in the right lower quadrant. Additionally the stomach is fluid distended. No pneumatosis, fluid collection or free air. The spleen, gallbladder, adrenal glands and kidneys are unremarkable. Fatty atrophy of the pancreas. Scattered changes of spondylosis the spine. No fracture or osseous lesion. IMPRESSION: 1. Multiple fluid distended loops of small bowel. Additionally the stomach is markedly distended. Findings are consistent with small bowel obstruction with transition point in the right lower quadrant. 2. Mild pneumobilia. Findings are nonspecific. Correlation with recent instrumentation versus surgical history is recommended. Jl Salgado DO 11/08/202014 Thank you for allowing us to participate in the care of your patient.
[2020-11-08 20:56] LABS: O2 DELIVERY DEVICE ROOM AIR
[2020-11-08 21:06] LABS: BICARBONATE,VENOUS 7 mmol/L (23-28); O2 SATURATION VENOUS 88 %; PCO2 VENOUS 20 mmHG (41-51); PH,VENOUS 7.18 (7.31-7.41); PO2 VENOUS 66 mmHG
[2020-11-08 21:07] LABS: BASE EXCESS VENOUS -19 mmol/L ((-2)-3)
[2020-11-08] MEDS ORDERED: Sodium Bicarbonate 8.4% 50 MEQ/50 ML Syringe IV ONE (21:10)
[2020-11-08] MEDS ORDERED: POTASSIUM CHLORIDE IV ONE (21:12)
[2020-11-08 21:40] LABS: O2 DELIVERY DEVICE ROOM AIR
[2020-11-08 21:42] LABS: BASE EXCESS ARTERIAL -19 mmol/L (-2-3); BICARBONATE,ARTERIAL 6.6 mmol/L (22-26); O2 SATURATION ARTERIAL 94 % (95-98); PO2 ARTERIAL 87 mmHG (80-105)
[2020-11-08 21:45] LABS: PCO2 ARTERIAL 17 mmHG (35-45)
[2020-11-08 22:10] LABS: ANION GAP 29.2 mmol/L (5-15); CHLORIDE,CL 108 mmol/L (98-107); SODIUM,NA 140 mmol/L (136-145)
[2020-11-08] MEDS ORDERED: Potassium Chloride 20 MEQ in Premix Bag 1 BAG IV ONE (22:13)
[2020-11-08] MEDS ORDERED: LORazepam 2 MG/ML SDV IVPUSH ONE (22:42)
[2020-11-08] MEDS ORDERED: Dextrose 5%-0.45% NaCl 1,000 ML IV SCH (23:00)
[2020-11-09] MEDS: Insulin Aspart 100 Units/ML 3 ML Pen SUBCUT SCH ×12 (00:04→22:28)
[2020-11-09] MEDS ORDERED: LORazepam 2 MG/ML SDV IVPUSH ONE ×2 (02:09→23:20)
[2020-11-09] MEDS: Sodium Chloride 0.9% 10 ML Syringe FLUSH PRN ×2 (02:36→23:47)
[2020-11-09] MEDS ORDERED: Haloperidol Lactate 5 MG/ML SDV IM ONE (04:27)
[2020-11-09] MEDS ORDERED: Phosphorus #1 250 MG Tab PO ONE ×3 (05:00→21:00)
[2020-11-09 05:31] LABS: ANION GAP 25.5 mmol/L (5-15); CHLORIDE,CL 108 mmol/L (98-107); SODIUM,NA 141 mmol/L (136-145)
--- NOTE | 2020-11-09 08:07 | CR ---
[id number] RAD/RAD Chest Portable EXAM: RAD Chest Portable INDICATION: NG tube placement. COMPARISON: CT from same date. Discussion/Impression: NG tube has been placed. Tip projects over the left upper quadrant in expected location of the stomach. Beto Garsia MD 11/09/20 0806 Thank you for allowing us to participate in the care of your patient.
[2020-11-09 08:30] LABS: PCO2 ARTERIAL,POC 22 mmHg (35-48)
[2020-11-09] MEDS ORDERED: Simvastatin 20 MG Tab PO SCH (09:00)
[2020-11-09] MEDS ORDERED: Enalapril 5 MG Tab PO SCH (09:00)
[2020-11-09 09:06] LABS: ANION GAP 22.4 mmol/L (5-15); CHLORIDE,CL 108 mmol/L (98-107); SODIUM,NA 142 mmol/L (136-145)
[2020-11-09] MEDS: Lactated Ringers 1,000 ML IV SCH (10:39)
--- NOTE | 2020-11-09 10:46 | PCM.PN ---
- General Info Date of Service: 11/09/20 Subjective Update: Unable to complete full ROM due to sedation/AMS Functional Status: Reports: Pain Controlled, Urinating (murray catheter in place. ). Denies: Tolerating Diet, Ambulating - Review of Systems General: Reports: Weakness, Fatigue. Denies: Fever Pulmonary: Reports: Shortness of Breath Cardiovascular: Denies: Chest Pain Gastrointestinal: Denies: Abdominal Pain, Constipation, Flatus, Nausea, Vomiting Skin: Reports: Pallor Neurological: Reports: Confusion - Patient Data Vitals - Most Recent: Last Vital Signs Temp 97.7 F 11/09/20 06:00 Pulse 114 H 11/09/20 06:00 Resp 24 H 11/09/20 06:00 BP 128/58 L 11/09/20 06:00 Pulse Ox 93 L 11/09/20 06:00 Weight - Most Recent: 200 lb I&O - Last 24 Hours: Intake & Output 11/08/20 11/09/20 11/09/20 22:59 06:59 14:59 Intake Total 2837 1140 Output Total 1800 300 Balance 1037 840 Lab Results Last 24 Hours: Laboratory Results - last 24 hr 11/08/20 11/08/20 11/08/20 Range/Units 07:28 12:46 13:45 WBC 18.70 H (5.00-10.00) 10^3/uL RBC 4.90 (3.80-5.50) 10^6/uL Hgb 12.4 (12.0-16.0) g/dL Hct 40.8 (37.0-47.0) % MCV 83.3 D (82.0-92.0) fL MCH 25.3 L (27.0-31.0) pg MCHC 30.4 L (32.0-36.0) g/dL RDW 14.5 (11.5-14.5) % Plt Count 484 H (150-400) 10^3/uL MPV 10.1 (7.4-10.4) fL Add Manual Diff Yes Neutrophils % (Manual) 83 H (50-70) % Band Neutrophils % 6 (4-12) % Lymphocytes % (Manual) 2 L (20-40) % Monocytes % (Manual) 9 H (2-8) % Metamyelocytes % Platelet Estimate Increased ESR 93 H (0-30) mm/hr PT (9.2-11.2) SEC INR (0.9-1.1) APTT (22.8-31.4) SEC D-Dimer, Quantitative (<400) ng/mL POC ABG pH (7.35-7.45) pH ABG pH 7.12 L* (7.35-7.45) POC ABG pCO2 (35-48) mmHg ABG pCO2 12 L* (35-45) mmHG POC ABG pO2 (83-108) mmHg ABG pO2 105 (80-105) mmHG POC ABG HCO3 (21-28) mmol/L ABG HCO3 3.8 L (22-26) mmol/L ABG Total CO2 5 L (23-27) mmol/L POC ABG O2 Sat (94-98) % ABG O2 Saturation 96 (95-98) % ABG Base Excess -23 L (-2-3) mmol/L VBG pH (7.31-7.41) VBG pCO2 (41-51) mmHG VBG pO2 mmHG VBG HCO3 (23-28) mmol/L VBG Total CO2 mmol/L VBG O2 Saturation % VBG Base Excess ((-2)-3) mmol/L O2 Delivery Device Room air Sodium (136-145) mmol/L Potassium (3.5-5.1) mmol/L Chloride (98-107) mmol/L Carbon Dioxide (21.0-32.0) mmol/L Anion Gap (5-15) mmol/L BUN (7-18) mg/dL Creatinine (0.51-1.17) mg/dL Est Cr Clr Drug Dosing mL/min Estimated GFR (MDRD) mL/min Glucose (70-140) mg/dL POC Glucose (70-140) mg/dL Lactic Acid (0.4-2.0) mmol/L Calcium (8.7-10.3) mg/dL Phosphorus (2.6-4.7) mg/dL Magnesium (1.8-2.4) mg/dL Total Bilirubin (0.2-1.0) mg/dL AST (15-37) U/L ALT (14-63) U/L Alkaline Phosphatase (46-116) U/L Creatine Kinase (26-276) U/L Troponin I High Sens (0-51.000) pg/mL C-Reactive Protein (0.0-0.9) mg/dL Total Protein (6.4-8.2) g/dL Albumin (3.40-5.00) g/dL 11/08/20 11/08/20 11/08/20 Range/Units 13:45 13:45 13:45 WBC (5.00-10.00) 10^3/uL RBC (3.80-5.50) 10^6/uL Hgb (12.0-16.0) g/dL Hct (37.0-47.0) % MCV (82.0-92.0) fL MCH (27.0-31.0) pg MCHC (32.0-36.0) g/dL RDW (11.5-14.5) % Plt Count (150-400) 10^3/uL MPV (7.4-10.4) fL Add Manual Diff Neutrophils % (Manual) (50-70) % Band Neutrophils % (4-12) % Lymphocytes % (Manual) (20-40) % Monocytes % (Manual) (2-8) % Metamyelocytes % Platelet Estimate ESR (0-30) mm/hr PT 11.8 H (9.2-11.2) SEC INR 1.2 H (0.9-1.1) APTT 30.5 (22.8-31.4) SEC D-Dimer, Quantitative (<400) ng/mL POC ABG pH (7.35-7.45) pH ABG pH (7.35-7.45) POC ABG pCO2 (35-48) mmHg ABG pCO2 (35-45) mmHG POC ABG pO2 (83-108) mmHg ABG pO2 (80-105) mmHG POC ABG HCO3 (21-28) mmol/L ABG HCO3 (22-26) mmol/L ABG Total CO2 (23-27) mmol/L POC ABG O2 Sat (94-98) % ABG O2 Saturation (95-98) % ABG Base Excess (-2-3) mmol/L VBG pH (7.31-7.41) VBG pCO2 (41-51) mmHG VBG pO2 mmHG VBG HCO3 (23-28) mmol/L VBG Total CO2 mmol/L VBG O2 Saturation % VBG Base Excess ((-2)-3) mmol/L O2 Delivery Device Sodium (136-145) mmol/L Potassium (3.5-5.1) mmol/L Chloride (98-107) mmol/L Carbon Dioxide (21.0-32.0) mmol/L Anion Gap (5-15) mmol/L BUN (7-18) mg/dL Creatinine (0.51-1.17) mg/dL Est Cr Clr Drug Dosing mL/min Estimated GFR (MDRD) mL/min Glucose (70-140) mg/dL POC Glucose (70-140) mg/dL Lactic Acid 0.8 (0.4-2.0) mmol/L Calcium (8.7-10.3) mg/dL Phosphorus (2.6-4.7) mg/dL Magnesium (1.8-2.4) mg/dL Total Bilirubin (0.2-1.0) mg/dL AST (15-37) U/L ALT (14-63) U/L Alkaline Phosphatase (46-116) U/L Creatine Kinase 46 (26-276) U/L Troponin I High Sens (0-51.000) pg/mL C-Reactive Protein > 11.0 H (0.0-0.9) mg/dL Total Protein (6.4-8.2) g/dL Albumin (3.40-5.00) g/dL 11/08/20 11/08/20 11/08/20 Range/Units 13:45 13:45 13:45 WBC (5.00-10.00) 10^3/uL RBC (3.80-5.50) 10^6/uL Hgb (12.0-16.0) g/dL Hct (37.0-47.0) % MCV (82.0-92.0) fL MCH (27.0-31.0) pg MCHC (32.0-36.0) g/dL RDW (11.5-14.5) % Plt Count (150-400) 10^3/uL MPV (7.4-10.4) fL Add Manual Diff Neutrophils % (Manual) (50-70) % Band Neutrophils % (4-12) % Lymphocytes % (Manual) (20-40) % Monocytes % (Manual) (2-8) % Metamyelocytes % Platelet Estimate ESR (0-30) mm/hr PT (9.2-11.2) SEC INR (0.9-1.1) APTT (22.8-31.4) SEC D-Dimer, Quantitative 1990 H (<400) ng/mL POC ABG pH (7.35-7.45) pH ABG pH (7.35-7.45) POC ABG pCO2 (35-48) mmHg ABG pCO2 (35-45) mmHG POC ABG pO2 (83-108) mmHg ABG pO2 (80-105) mmHG POC ABG HCO3 (21-28) mmol/L ABG HCO3 (22-26) mmol/L ABG Total CO2 (23-27) mmol/L POC ABG O2 Sat (94-98) % ABG O2 Saturation (95-98) % ABG Base Excess (-2-3) mmol/L VBG pH (7.31-7.41) VBG pCO2 (41-51) mmHG VBG pO2 mmHG VBG HCO3 (23-28) mmol/L VBG Total CO2 mmol/L VBG O2 Saturation % VBG Base Excess ((-2)-3) mmol/L O2 Delivery Device Sodium 137 (136-145) mmol/L Potassium 4.6 (3.5-5.1) mmol/L Chloride 102 (98-107) mmol/L Carbon Dioxide 6.8 L (21.0-32.0) mmol/L Anion Gap 32.8 H (5-15) mmol/L BUN 35 H (7-18) mg/dL Creatinine 0.88 (0.51-1.17) mg/dL Est Cr Clr Drug Dosing 49.91 mL/min Estimated GFR (MDRD) > 60 mL/min Glucose 338 H (70-140) mg/dL POC Glucose (70-140) mg/dL Lactic Acid (0.4-2.0) mmol/L Calcium 8.3 L (8.7-10.3) mg/dL Phosphorus (2.6-4.7) mg/dL Magnesium 1.8 (1.8-2.4) mg/dL Total Bilirubin 0.5 (0.2-1.0) mg/dL AST 11 L (15-37) U/L ALT 18 (14-63) U/L Alkaline Phosphatase 134 H (46-116) U/L Creatine Kinase (26-276) U/L Troponin I High Sens 12.000 (0-51.000) pg/mL C-Reactive Protein (0.0-0.9) mg/dL Total Protein 7.0 (6.4-8.2) g/dL Albumin 2.48 L (3.40-5.00) g/dL 11/08/20 11/08/20 11/08/20 Range/Units 17:11 17:58 18:57 WBC (5.00-10.00) 10^3/uL RBC (3.80-5.50) 10^6/uL Hgb (12.0-16.0) g/dL Hct (37.0-47.0) % MCV (82.0-92.0) fL MCH (27.0-31.0) pg MCHC (32.0-36.0) g/dL RDW (11.5-14.5) % Plt Count (150-400) 10^3/uL MPV (7.4-10.4) fL Add Manual Diff Neutrophils % (Manual) (50-70) % Band Neutrophils % (4-12) % Lymphocytes % (Manual) (20-40) % Monocytes % (Manual) (2-8) % Metamyelocytes % Platelet Estimate ESR (0-30) mm/hr PT (9.2-11.2) SEC INR (0.9-1.1) APTT (22.8-31.4) SEC D-Dimer, Quantitative (<400) ng/mL POC ABG pH (7.35-7.45) pH ABG pH (7.35-7.45) POC ABG pCO2 (35-48) mmHg ABG pCO2 (35-45) mmHG POC ABG pO2 (83-108) mmHg ABG pO2 (80-105) mmHG POC ABG HCO3 (21-28) mmol/L ABG HCO3 (22-26) mmol/L ABG Total CO2 (23-27) mmol/L POC ABG O2 Sat (94-98) % ABG O2 Saturation (95-98) % ABG Base Excess (-2-3) mmol/L VBG pH (7.31-7.41) VBG pCO2 (41-51) mmHG VBG pO2 mmHG VBG HCO3 (23-28) mmol/L VBG Total CO2 mmol/L VBG O2 Saturation % VBG Base Excess ((-2)-3) mmol/L O2 Delivery Device Sodium (136-145) mmol/L Potassium (3.5-5.1) mmol/L Chloride (98-107) mmol/L Carbon Dioxide (21.0-32.0) mmol/L Anion Gap (5-15) mmol/L BUN (7-18) mg/dL Creatinine (0.51-1.17) mg/dL Est Cr Clr Drug Dosing mL/min Estimated GFR (MDRD) mL/min Glucose (70-140) mg/dL POC Glucose 257 H 225 H 184 H (70-140) mg/dL Lactic Acid (0.4-2.0) mmol/L Calcium (8.7-10.3) mg/dL Phosphorus (2.6-4.7) mg/dL Magnesium (1.8-2.4) mg/dL Total Bilirubin (0.2-1.0) mg/dL AST (15-37) U/L ALT (14-63) U/L Alkaline Phosphatase (46-116) U/L Creatine Kinase (26-276) U/L Troponin I High Sens (0-51.000) pg/mL C-Reactive Protein (0.0-0.9) mg/dL Total Protein (6.4-8.2) g/dL Albumin (3.40-5.00) g/dL 11/08/20 11/08/20 11/08/20 Range/Units 19:48 20:50 20:50 WBC 14.69 H (5.00-10.00) 10^3/uL RBC 4.59 (3.80-5.50) 10^6/uL Hgb 11.7 L (12.0-16.0) g/dL Hct 37.5 (37.0-47.0) % MCV 81.7 L (82.0-92.0) fL MCH 25.5 L (27.0-31.0) pg MCHC 31.2 L (32.0-36.0) g/dL RDW 14.4 (11.5-14.5) % Plt Count 412 H (150-400) 10^3/uL MPV 9.3 (7.4-10.4) fL Add Manual Diff Yes Neutrophils % (Manual) 74 H (50-70) % Band Neutrophils % 9 (4-12) % Lymphocytes % (Manual) 11 L (20-40) % Monocytes % (Manual) 4 (2-8) % Metamyelocytes % 2 Platelet Estimate Increased ESR (0-30) mm/hr PT (9.2-11.2) SEC INR (0.9-1.1) APTT (22.8-31.4) SEC D-Dimer, Quantitative (<400) ng/mL POC ABG pH (7.35-7.45) pH ABG pH (7.35-7.45) POC ABG pCO2 (35-48) mmHg ABG pCO2 (35-45) mmHG POC ABG pO2 (83-108) mmHg ABG pO2 (80-105) mmHG POC ABG HCO3 (21-28) mmol/L ABG HCO3 (22-26) mmol/L ABG Total CO2 (23-27) mmol/L POC ABG O2 Sat (94-98) % ABG O2 Saturation (95-98) % ABG Base Excess (-2-3) mmol/L VBG pH 7.18 L (7.31-7.41) VBG pCO2 20 L (41-51) mmHG VBG pO2 66 mmHG VBG HCO3 7 L (23-28) mmol/L VBG Total CO2 9 mmol/L VBG O2 Saturation 88 % VBG Base Excess -19 L ((-2)-3) mmol/L O2 Delivery Device Room air Sodium (136-145) mmol/L Potassium (3.5-5.1) mmol/L Chloride (98-107) mmol/L Carbon Dioxide (21.0-32.0) mmol/L Anion Gap (5-15) mmol/L BUN (7-18) mg/dL Creatinine (0.51-1.17) mg/dL Est Cr Clr Drug Dosing mL/min Estimated GFR (MDRD) mL/min Glucose (70-140) mg/dL POC Glucose 168 H (70-140) mg/dL Lactic Acid (0.4-2.0) mmol/L Calcium (8.7-10.3) mg/dL Phosphorus (2.6-4.7) mg/dL Magnesium (1.8-2.4) mg/dL Total Bilirubin (0.2-1.0) mg/dL AST (15-37) U/L ALT (14-63) U/L Alkaline Phosphatase (46-116) U/L Creatine Kinase (26-276) U/L Troponin I High Sens (0-51.000) pg/mL C-Reactive Protein (0.0-0.9) mg/dL Total Protein (6.4-8.2) g/dL Albumin (3.40-5.00) g/dL 11/08/20 11/08/20 11/08/20 Range/Units 20:50 21:00 21:00 WBC (5.00-10.00) 10^3/uL RBC (3.80-5.50) 10^6/uL Hgb (12.0-16.0) g/dL Hct (37.0-47.0) % MCV (82.0-92.0) fL MCH (27.0-31.0) pg MCHC (32.0-36.0) g/dL RDW (11.5-14.5) % Plt Count (150-400) 10^3/uL MPV (7.4-10.4) fL Add Manual Diff Neutrophils % (Manual) (50-70) % Band Neutrophils % (4-12) % Lymphocytes % (Manual) (20-40) % Monocytes % (Manual) (2-8) % Metamyelocytes % Platelet Estimate ESR (0-30) mm/hr PT (9.2-11.2) SEC INR (0.9-1.1) APTT (22.8-31.4) SEC D-Dimer, Quantitative (<400) ng/mL POC ABG pH (7.35-7.45) pH ABG pH 7.20 L* (7.35-7.45) POC ABG pCO2 (35-48) mmHg ABG pCO2 17 L* (35-45) mmHG POC ABG pO2 (83-108) mmHg ABG pO2 87 (80-105) mmHG POC ABG HCO3 (21-28) mmol/L ABG HCO3 6.6 L (22-26) mmol/L ABG Total CO2 8 L (23-27) mmol/L POC ABG O2 Sat (94-98) % ABG O2 Saturation 94 L (95-98) % ABG Base Excess -19 L (-2-3) mmol/L VBG pH (7.31-7.41) VBG pCO2 (41-51) mmHG VBG pO2 mmHG VBG HCO3 (23-28) mmol/L VBG Total CO2 mmol/L VBG O2 Saturation % VBG Base Excess ((-2)-3) mmol/L O2 Delivery Device Room air Sodium 140 (136-145) mmol/L Potassium 3.8 (3.5-5.1) mmol/L Chloride 108 H (98-107) mmol/L Carbon Dioxide 6.6 L (21.0-32.0) mmol/L Anion Gap 29.2 H (5-15) mmol/L BUN 29 H (7-18) mg/dL Creatinine 0.73 (0.51-1.17) mg/dL Est Cr Clr Drug Dosing 60.17 mL/min Estimated GFR (MDRD) > 60 mL/min Glucose 147 H (70-140) mg/dL POC Glucose (70-140) mg/dL Lactic Acid (0.4-2.0) mmol/L Calcium 8.1 L (8.7-10.3) mg/dL Phosphorus 1.6 L (2.6-4.7) mg/dL Magnesium (1.8-2.4) mg/dL Total Bilirubin (0.2-1.0) mg/dL AST (15-37) U/L ALT (14-63) U/L Alkaline Phosphatase (46-116) U/L Creatine Kinase (26-276) U/L Troponin I High Sens (0-51.000) pg/mL C-Reactive Protein (0.0-0.9) mg/dL Total Protein (6.4-8.2) g/dL Albumin (3.40-5.00) g/dL 11/08/20 11/08/20 11/09/20 Range/Units 21:04 22:00 00:01 WBC (5.00-10.00) 10^3/uL RBC (3.80-5.50) 10^6/uL Hgb (12.0-16.0) g/dL Hct (37.0-47.0) % MCV (82.0-92.0) fL MCH (27.0-31.0) pg MCHC (32.0-36.0) g/dL RDW (11.5-14.5) % Plt Count (150-400) 10^3/uL MPV (7.4-10.4) fL Add Manual Diff Neutrophils % (Manual) (50-70) % Band Neutrophils % (4-12) % Lymphocytes % (Manual) (20-40) % Monocytes % (Manual) (2-8) % Metamyelocytes % Platelet Estimate ESR (0-30) mm/hr PT (9.2-11.2) SEC INR (0.9-1.1) APTT (22.8-31.4) SEC D-Dimer, Quantitative (<400) ng/mL POC ABG pH (7.35-7.45) pH ABG pH (7.35-7.45) POC ABG pCO2 (35-48) mmHg ABG pCO2 (35-45) mmHG POC ABG pO2 (83-108) mmHg ABG pO2 (80-105) mmHG POC ABG HCO3 (21-28) mmol/L ABG HCO3 (22-26) mmol/L ABG Total CO2 (23-27) mmol/L POC ABG O2 Sat (94-98) % ABG O2 Saturation (95-98) % ABG Base Excess (-2-3) mmol/L VBG pH (7.31-7.41) VBG pCO2 (41-51) mmHG VBG pO2 mmHG VBG HCO3 (23-28) mmol/L VBG Total CO2 mmol/L VBG O2 Saturation % VBG Base Excess ((-2)-3) mmol/L O2 Delivery Device Sodium (136-145) mmol/L Potassium (3.5-5.1) mmol/L Chloride (98-107) mmol/L Carbon Dioxide (21.0-32.0) mmol/L Anion Gap (5-15) mmol/L BUN (7-18) mg/dL Creatinine (0.51-1.17) mg/dL Est Cr Clr Drug Dosing mL/min Estimated GFR (MDRD) mL/min Glucose (70-140) mg/dL POC Glucose 146 H 102 132 (70-140) mg/dL Lactic Acid (0.4-2.0) mmol/L Calcium (8.7-10.3) mg/dL Phosphorus (2.6-4.7) mg/dL Magnesium (1.8-2.4) mg/dL Total Bilirubin (0.2-1.0) mg/dL AST (15-37) U/L ALT (14-63) U/L Alkaline Phosphatase (46-116) U/L Creatine Kinase (26-276) U/L Troponin I High Sens (0-51.000) pg/mL C-Reactive Protein (0.0-0.9) mg/dL Total Protein (6.4-8.2) g/dL Albumin (3.40-5.00) g/dL 11/09/20 11/09/20 11/09/20 Range/Units 02:10 05:05 08:10 WBC (5.00-10.00) 10^3/uL RBC (3.80-5.50) 10^6/uL Hgb (12.0-16.0) g/dL Hct (37.0-47.0) % MCV (82.0-92.0) fL MCH (27.0-31.0) pg MCHC (32.0-36.0) g/dL RDW (11.5-14.5) % Plt Count (150-400) 10^3/uL MPV (7.4-10.4) fL Add Manual Diff Neutrophils % (Manual) (50-70) % Band Neutrophils % (4-12) % Lymphocytes % (Manual) (20-40) % Monocytes % (Manual) (2-8) % Metamyelocytes % Platelet Estimate ESR (0-30) mm/hr PT (9.2-11.2) SEC INR (0.9-1.1) APTT (22.8-31.4) SEC D-Dimer, Quantitative (<400) ng/mL POC ABG pH 7.37 (7.35-7.45) pH ABG pH (7.35-7.45) POC ABG pCO2 22 L (35-48) mmHg ABG pCO2 (35-45) mmHG POC ABG pO2 39 L* (83-108) mmHg ABG pO2 (80-105) mmHG POC ABG HCO3 12.8 L (21-28) mmol/L ABG HCO3 (22-26) mmol/L ABG Total CO2 (23-27) mmol/L POC ABG O2 Sat 73.8 L* (94-98) % ABG O2 Saturation (95-98) % ABG Base Excess (-2-3) mmol/L VBG pH (7.31-7.41) VBG pCO2 (41-51) mmHG VBG pO2 mmHG VBG HCO3 (23-28) mmol/L VBG Total CO2 mmol/L VBG O2 Saturation % VBG Base Excess ((-2)-3) mmol/L O2 Delivery Device Sodium 141 (136-145) mmol/L Potassium 3.5 (3.5-5.1) mmol/L Chloride 108 H (98-107) mmol/L Carbon Dioxide 11.0 L (21.0-32.0) mmol/L Anion Gap 25.5 H (5-15) mmol/L BUN 26 H (7-18) mg/dL Creatinine 0.77 (0.51-1.17) mg/dL Est Cr Clr Drug Dosing 57.04 mL/min Estimated GFR (MDRD) > 60 mL/min Glucose 202 H (70-140) mg/dL POC Glucose 200 H (70-140) mg/dL Lactic Acid (0.4-2.0) mmol/L Calcium 8.2 L (8.7-10.3) mg/dL Phosphorus (2.6-4.7) mg/dL Magnesium (1.8-2.4) mg/dL Total Bilirubin (0.2-1.0) mg/dL AST (15-37) U/L ALT (14-63) U/L Alkaline Phosphatase (46-116) U/L Creatine Kinase (26-276) U/L Troponin I High Sens (0-51.000) pg/mL C-Reactive Protein (0.0-0.9) mg/dL Total Protein (6.4-8.2) g/dL Albumin (3.40-5.00) g/dL 11/09/20 11/09/20 Range/Units 08:20 08:20 WBC 18.15 H (5.00-10.00) 10^3/uL RBC 4.77 (3.80-5.50) 10^6/uL Hgb 12.1 (12.0-16.0) g/dL Hct 37.2 (37.0-47.0) % MCV 78.0 L D (82.0-92.0) fL MCH 25.4 L (27.0-31.0) pg MCHC 32.5 (32.0-36.0) g/dL RDW 14.4 (11.5-14.5) % Plt Count 365 (150-400) 10^3/uL MPV 9.7 (7.4-10.4) fL Add Manual Diff Yes Neutrophils % (Manual) 88 H (50-70) % Band Neutrophils % 5 (4-12) % Lymphocytes % (Manual) 2 L (20-40) % Monocytes % (Manual) 5 (2-8) % Metamyelocytes % Platelet Estimate Increased ESR (0-30) mm/hr PT (9.2-11.2) SEC INR (0.9-1.1) APTT (22.8-31.4) SEC D-Dimer, Quantitative (<400) ng/mL POC ABG pH (7.35-7.45) pH ABG pH (7.35-7.45) POC ABG pCO2 (35-48) mmHg ABG pCO2 (35-45) mmHG POC ABG pO2 (83-108) mmHg ABG pO2 (80-105) mmHG POC ABG HCO3 (21-28) mmol/L ABG HCO3 (22-26) mmol/L ABG Total CO2 (23-27) mmol/L POC ABG O2 Sat (94-98) % ABG O2 Saturation (95-98) % ABG Base Excess (-2-3) mmol/L VBG pH (7.31-7.41) VBG pCO2 (41-51) mmHG VBG pO2 mmHG VBG HCO3 (23-28) mmol/L VBG Total CO2 mmol/L VBG O2 Saturation % VBG Base Excess ((-2)-3) mmol/L O2 Delivery Device Sodium 142 (136-145) mmol/L Potassium 3.2 L (3.5-5.1) mmol/L Chloride 108 H (98-107) mmol/L Carbon Dioxide 14.8 L (21.0-32.0) mmol/L Anion Gap 22.4 H (5-15) mmol/L BUN 25 H (7-18) mg/dL Creatinine 0.67 (0.51-1.17) mg/dL Est Cr Clr Drug Dosing 65.55 mL/min Estimated GFR (MDRD) > 60 mL/min Glucose 187 H (70-140) mg/dL POC Glucose (70-140) mg/dL Lactic Acid (0.4-2.0) mmol/L Calcium 8.1 L (8.7-10.3) mg/dL Phosphorus (2.6-4.7) mg/dL Magnesium (1.8-2.4) mg/dL Total Bilirubin 0.4 (0.2-1.0) mg/dL AST 18 (15-37) U/L ALT 18 (14-63) U/L Alkaline Phosphatase 100 (46-116) U/L Creatine Kinase (26-276) U/L Troponin I High Sens (0-51.000) pg/mL C-Reactive Protein (0.0-0.9) mg/dL Total Protein 5.7 L (6.4-8.2) g/dL Albumin 2.05 L (3.40-5.00) g/dL Med Orders - Current: Current Medications Dextrose/Water (50% Dextrose In Water 50 Ml Syringe) 50 ml IVPUSH ASDIRECTED PRN PRN Reason: Hypoglycemia Enoxaparin Sodium (Enoxaparin 40 Mg/0.4 Ml Syringe) 40 mg SUBCUT Q24H [facility] Last Admin: 11/08/20 13:02 Dose: 40 mg Documented by: Glucagon (Glucagon,Human Recombinant 1 Mg Vial) 1 mg IM ASDIRECTED PRN PRN Reason: Hypoglycemia Lactated Ringer's (Ringers, Lactated) 1,000 mls @ 75 mls/hr IV ASDIRECTED [facility] Last Admin: 11/09/20 10:39 Dose: 75 mls/hr Documented by: Dextrose/Sodium Chloride (Dextrose 5%-1/2 Ns) 1,000 mls @ 75 mls/hr IV ASDIRECTED [facility] Last Admin: 11/08/20 23:52 Dose: 75 mls/hr Documented by: Sodium Chloride (Normal Saline) 100 mls @ 200 mls/hr IV ASDIRECTED [facility] Last Admin: 11/08/20 17:30 Dose: 200 mls/hr Documented by: Insulin Aspart (Insulin Aspart 100 Units/Ml 3 Ml Pen) 0 unit SUBCUT Q2H [facility]; Protocol Last Admin: 11/09/20 10:42 Dose: 4 units Documented by: Ondansetron HCl (Ondansetron 4 Mg/2 Ml Sdv) 4 mg IV Q6H PRN PRN Reason: Nausea/Vomiting Last Admin: 11/08/20 16:25 Dose: 4 mg Documented by: Sodium Chloride (Sodium Chloride 0.9% 10 Ml Syringe) 10 ml FLUSH Q8HR PRN PRN Reason: keep vein open Last Admin: 11/09/20 02:36 Dose: 10 ml Documented by: Discontinued Medications Aspirin (Aspirin 81 Mg Tab.Ec) 81 mg PO DAILY [facility] Last Admin: 11/08/20 08:14 Dose: 81 mg Documented by: Enalapril Maleate (Enalapril 5 Mg Tab) 20 mg PO DAILY [facility] Haloperidol Lactate (Haloperidol Lactate 5 Mg/Ml Sdv) 1 mg IM ONETIME ONE Stop: 11/09/20 04:28 Sodium Chloride (Normal Saline) 1,000 mls @ 999 mls/hr IV .BOLUS ONE Stop: 11/07/20 18:09 Last Admin: 11/07/20 17:20 Dose: 999 mls/hr Documented by: Potassium Chloride/Sodium Chloride (Normal Saline With 40 Meq Kcl) 1,000 mls @ 125 mls/hr IV ASDIRECTED [facility] Last Admin: 11/08/20 05:31 Dose: 125 mls/hr Documented by: Sodium Chloride (Normal Saline) 1,000 mls @ 125 mls/hr IV ASDIRECTED [facility] Last Infusion: 11/08/20 15:13 Dose: 150 mls/hr Documented by: Sodium Chloride (Normal Saline) 1,000 mls @ 999 mls/hr IV .BOLUS ONE Stop: 11/08/20 14:59 Last Admin: 11/08/20 14:34 Dose: 999 mls/hr Documented by: Insulin Regular in 0.9 % NACL (Myxredlin In Ns 100 Unit/100 Ml) 100 unit in 100 mls @ 9.072 mls/hr IV TITRATE [facility]; Protocol Last Admin: 11/08/20 15:52 Dose: 0.1 units/kg/hr, 9.072 mls/hr Documented by: Dextrose/Water (Dextrose 5% In Water) 1,000 mls @ 75 mls/hr IV ASDIRECTED [facility] Last Admin: 11/08/20 19:20 Dose: 75 mls/hr Documented by: Sodium Chloride (Normal Saline) 500 mls @ 999 mls/hr IV .BOLUS ONE Stop: 11/08/20 20:35 Last Admin: 11/08/20 20:16 Dose: 999 mls/hr Documented by: Potassium Chloride 10 meq/ (Premix) 50 mls @ 50 mls/hr IV ONETIME ONE Stop: 11/08/20 22:11 Last Admin: 11/08/20 21:41 Dose: 50 mls/hr Documented by: Sodium Bicarbonate 50 meq/ (Sodium Chloride) 150 mls @ 150 mls/hr IV ONETIME ONE Stop: 11/08/20 22:29 Last Admin: 11/08/20 21:32 Dose: 150 mls/hr Documented by: Potassium Chloride 20 meq/ (Premix) 100 mls @ 50 mls/hr IV ONETIME ONE Stop: 11/09/20 00:12 Last Admin: 11/08/20 22:48 Dose: 50 mls/hr Documented by: Insulin Aspart (Insulin Aspart 100 Units/Ml 3 Ml Pen) 0 unit SUBCUT WITHMEALSANDBED [facility]; Protocol Last Admin: 11/08/20 12:19 Dose: 3 units Documented by: Insulin Glargine (Insulin Glargine,Hum.Rec.Anlog 100 Unit/Ml 3 Ml Pen) 15 unit SUBCUT DAILY [facility] Insulin Glargine (Insulin Glargine,Hum.Rec.Anlog 100 Unit/Ml 3 Ml Pen) 5 unit SUBCUT DAILY [facility] Last Admin: 11/08/20 08:16 Dose: 5 units Documented by: Insulin Glargine (Insulin Glargine,Hum.Rec.Anlog 100 Unit/Ml 3 Ml Pen) 10 unit SUBCUT ONETIME ONE Stop: 11/09/20 11:01 Insulin Glargine (Insulin Glargine,Hum.Rec.Anlog 100 Unit/Ml 3 Ml Pen) 10 unit SUBCUT ONETIME ONE Stop: 11/08/20 11:01 Last Admin: 11/08/20 12:00 Dose: 10 units Documented by: Iopamidol (Iopamidol 755 Mg/Ml 75 Ml Bottle) 75 ml IVPUSH ONETIME ONE Stop: 11/08/20 17:08 Last Admin: 11/08/20 22:55 Dose: 75 ml Documented by: Lorazepam (Lorazepam 2 Mg/Ml Sdv) 0.25 mg IVPUSH ONETIME ONE Stop: 11/08/20 22:43 Last Admin: 11/08/20 23:38 Dose: 0.25 mg Documented by: Lorazepam (Lorazepam 2 Mg/Ml Sdv) 0.25 mg IVPUSH ONETIME ONE Stop: 11/09/20 02:10 Last Admin: 11/09/20 02:30 Dose: 0.25 mg Documented by: Melatonin (Melatonin 3 Mg Tab) 3 mg PO BEDTIME PRN PRN Reason: Insomnia Last Admin: 11/07/20 23:00 Dose: 3 mg Documented by: Metoclopramide HCl (Metoclopramide 10 Mg/2 Ml Sdv) 10 mg IVPUSH ONETIME ONE Stop: 11/07/20 18:37 Last Admin: 11/07/20 18:40 Dose: 10 mg Documented by: Non-Formulary Medication (Non-Formulary Medication 1 Each) 5 each SUBCUT DAILY [facility] Ondansetron HCl (Ondansetron 4 Mg/2 Ml Sdv) 4 mg IVPUSH ONETIME ONE Stop: 11/07/20 17:10 Last Admin: 11/07/20 17:29 Dose: 4 mg Documented by: Ondansetron HCl (Ondansetron 4 Mg Tab.Dis) 4 mg PO Q6HR PRN PRN Reason: Nausea Last Admin: 11/08/20 04:57 Dose: 4 mg Documented by: Ondansetron HCl (Ondansetron 4 Mg/2 Ml Sdv) 4 mg IVPUSH ONETIME ONE Stop: 11/08/20 19:45 Last Admin: 11/08/20 19:54 Dose: 4 mg Documented by: Sertraline HCl (Sertraline 50 Mg Tab) 50 mg PO 1700 [facility] Last Admin: 11/08/20 16:27 Dose: 50 mg Documented by: Simvastatin (Simvastatin 20 Mg Tab) 40 mg PO DAILY [facility] Sodium Phosphate (Phosphorus #1 250 Mg Tab) 500 mg PO ONETIME ONE Stop: 11/08/20 23:10 Last Admin: 11/08/20 23:35 Dose: 500 mg Documented by: Sodium Phosphate (Phosphorus #1 250 Mg Tab) 500 mg PO ONETIME ONE Stop: 11/08/20 05:01 Last Admin: 11/08/20 23:16 Dose: Not Given Documented by: Sodium Phosphate (Phosphorus #1 250 Mg Tab) 500 mg PO ONETIME ONE Stop: 11/09/20 05:01 Last Admin: 11/09/20 05:12 Dose: 500 mg Documented by: - Exam Quality Assessment: Urine Catheter, DVT Prophylaxis. No: Supplemental Oxygen General: Other (opens eyes easily to verbal, can answer questions tersley) Neck: Supple Lungs: Clear to Auscultation, Normal Respiratory Effort, Other (rate 24-30). No: Crackles, Rales GI/Abdominal Exam: Soft, No Organomegaly, No Distention. No: Normal Bowel Sounds (Bowel tones present, low pitched), Distended, Guarding, Rigid, Rebound, Tender (Female) Exam: Deferred Extremities: No Pedal Edema, Pallor, Other (cool extremities. ). No: Increased Warmth Peripheral Pulses: 2+: Radial (L), Radial (R) Skin: Warm, Dry, Intact, Other (cool skin) Wound/Incisions: No: Erythema Neurological: Normal Tone, Sensation Intact Psy/Mental Status: Alert, Labile Mood (slightly sedated, opens eyes, converses tersley), Hallucinations. No: Agitated - Patient Data Lab Results Last 24 hrs: Laboratory Results - last 24 hr 11/08/20 11/08/20 11/08/20 Range/Units 07:28 12:46 13:45 WBC 18.70 H (5.00-10.00) 10^3/uL RBC 4.90 (3.80-5.50) 10^6/uL Hgb 12.4 (12.0-16.0) g/dL Hct 40.8 (37.0-47.0) % MCV 83.3 D (82.0-92.0) fL MCH 25.3 L (27.0-31.0) pg MCHC 30.4 L (32.0-36.0) g/dL RDW 14.5 (11.5-14.5) % Plt Count 484 H (150-400) 10^3/uL MPV 10.1 (7.4-10.4) fL Add Manual Diff Yes Neutrophils % (Manual) 83 H (50-70) % Band Neutrophils % 6 (4-12) % Lymphocytes % (Manual) 2 L (20-40) % Monocytes % (Manual) 9 H (2-8) % Metamyelocytes % Platelet Estimate Increased ESR 93 H (0-30) mm/hr PT (9.2-11.2) SEC INR (0.9-1.1) APTT (22.8-31.4) SEC D-Dimer, Quantitative (<400) ng/mL POC ABG pH (7.35-7.45) pH ABG pH 7.12 L* (7.35-7.45) POC ABG pCO2 (35-48) mmHg ABG pCO2 12 L* (35-45) mmHG POC ABG pO2 (83-108) mmHg ABG pO2 105 (80-105) mmHG POC ABG HCO3 (21-28) mmol/L ABG HCO3 3.8 L (22-26) mmol/L ABG Total CO2 5 L (23-27) mmol/L POC ABG O2 Sat (94-98) % ABG O2 Saturation 96 (95-98) % ABG Base Excess -23 L (-2-3) mmol/L VBG pH (7.31-7.41) VBG pCO2 (41-51) mmHG VBG pO2 mmHG VBG HCO3 (23-28) mmol/L VBG Total CO2 mmol/L VBG O2 Saturation % VBG Base Excess ((-2)-3) mmol/L O2 Delivery Device Room air Sodium (136-145) mmol/L Potassium (3.5-5.1) mmol/L Chloride (98-107) mmol/L Carbon Dioxide (21.0-32.0) mmol/L Anion Gap (5-15) mmol/L BUN (7-18) mg/dL Creatinine (0.51-1.17) mg/dL Est Cr Clr Drug Dosing mL/min Estimated GFR (MDRD) mL/min Glucose (70-140) mg/dL POC Glucose (70-140) mg/dL Lactic Acid (0.4-2.0) mmol/L Calcium (8.7-10.3) mg/dL Phosphorus (2.6-4.7) mg/dL Magnesium (1.8-2.4) mg/dL Total Bilirubin (0.2-1.0) mg/dL AST (15-37) U/L ALT (14-63) U/L Alkaline Phosphatase (46-116) U/L Creatine Kinase (26-276) U/L Troponin I High Sens (0-51.000) pg/mL C-Reactive Protein (0.0-0.9) mg/dL Total Protein (6.4-8.2) g/dL Albumin (3.40-5.00) g/dL 11/08/20 11/08/20 11/08/20 Range/Units 13:45 13:45 13:45 WBC (5.00-10.00) 10^3/uL RBC (3.80-5.50) 10^6/uL Hgb (12.0-16.0) g/dL Hct (37.0-47.0) % MCV (82.0-92.0) fL MCH (27.0-31.0) pg MCHC (32.0-36.0) g/dL RDW (11.5-14.5) % Plt Count (150-400) 10^3/uL MPV (7.4-10.4) fL Add Manual Diff Neutrophils % (Manual) (50-70) % Band Neutrophils % (4-12) % Lymphocytes % (Manual) (20-40) % Monocytes % (Manual) (2-8) % Metamyelocytes % Platelet Estimate ESR (0-30) mm/hr PT 11.8 H (9.2-11.2) SEC INR 1.2 H (0.9-1.1) APTT 30.5 (22.8-31.4) SEC D-Dimer, Quantitative (<400) ng/mL POC ABG pH (7.35-7.45) pH ABG pH (7.35-7.45) POC ABG pCO2 (35-48) mmHg ABG pCO2 (35-45) mmHG POC ABG pO2 (83-108) mmHg ABG pO2 (80-105) mmHG POC ABG HCO3 (21-28) mmol/L ABG HCO3 (22-26) mmol/L ABG Total CO2 (23-27) mmol/L POC ABG O2 Sat (94-98) % ABG O2 Saturation (95-98) % ABG Base Excess (-2-3) mmol/L VBG pH (7.31-7.41) VBG pCO2 (41-51) mmHG VBG pO2 mmHG VBG HCO3 (23-28) mmol/L VBG Total CO2 mmol/L VBG O2 Saturation % VBG Base Excess ((-2)-3) mmol/L O2 Delivery Device Sodium (136-145) mmol/L Potassium (3.5-5.1) mmol/L Chloride (98-107) mmol/L Carbon Dioxide (21.0-32.0) mmol/L Anion Gap (5-15) mmol/L BUN (7-18) mg/dL Creatinine (0.51-1.17) mg/dL Est Cr Clr Drug Dosing mL/min Estimated GFR (MDRD) mL/min Glucose (70-140) mg/dL POC Glucose (70-140) mg/dL Lactic Acid 0.8 (0.4-2.0) mmol/L Calcium (8.7-10.3) mg/dL Phosphorus (2.6-4.7) mg/dL Magnesium (1.8-2.4) mg/dL Total Bilirubin (0.2-1.0) mg/dL AST (15-37) U/L ALT (14-63) U/L Alkaline Phosphatase (46-116) U/L Creatine Kinase 46 (26-276) U/L Troponin I High Sens (0-51.000) pg/mL C-Reactive Protein > 11.0 H (0.0-0.9) mg/dL Total Protein (6.4-8.2) g/dL Albumin (3.40-5.00) g/dL 11/08/20 11/08/20 11/08/20 Range/Units 13:45 13:45 13:45 WBC (5.00-10.00) 10^3/uL RBC (3.80-5.50) 10^6/uL Hgb (12.0-16.0) g/dL Hct (37.0-47.0) % MCV (82.0-92.0) fL MCH (27.0-31.0) pg MCHC (32.0-36.0) g/dL RDW (11.5-14.5) % Plt Count (150-400) 10^3/uL MPV (7.4-10.4) fL Add Manual Diff Neutrophils % (Manual) (50-70) % Band Neutrophils % (4-12) % Lymphocytes % (Manual) (20-40) % Monocytes % (Manual) (2-8) % Metamyelocytes % Platelet Estimate ESR (0-30) mm/hr PT (9.2-11.2) SEC INR (0.9-1.1) APTT (22.8-31.4) SEC D-Dimer, Quantitative 1990 H (<400) ng/mL POC ABG pH (7.35-7.45) pH ABG pH (7.35-7.45) POC ABG pCO2 (35-48) mmHg ABG pCO2 (35-45) mmHG POC ABG pO2 (83-108) mmHg ABG pO2 (80-105) mmHG POC ABG HCO3 (21-28) mmol/L ABG HCO3 (22-26) mmol/L ABG Total CO2 (23-27) mmol/L POC ABG O2 Sat (94-98) % ABG O2 Saturation (95-98) % ABG Base Excess (-2-3) mmol/L VBG pH (7.31-7.41) VBG pCO2 (41-51) mmHG VBG pO2 mmHG VBG HCO3 (23-28) mmol/L VBG Total CO2 mmol/L VBG O2 Saturation % VBG Base Excess ((-2)-3) mmol/L O2 Delivery Device Sodium 137 (136-145) mmol/L Potassium 4.6 (3.5-5.1) mmol/L Chloride 102 (98-107) mmol/L Carbon Dioxide 6.8 L (21.0-32.0) mmol/L Anion Gap 32.8 H (5-15) mmol/L BUN 35 H (7-18) mg/dL Creatinine 0.88 (0.51-1.17) mg/dL Est Cr Clr Drug Dosing 49.91 mL/min Estimated GFR (MDRD) > 60 mL/min Glucose 338 H (70-140) mg/dL POC Glucose (70-140) mg/dL Lactic Acid (0.4-2.0) mmol/L Calcium 8.3 L (8.7-10.3) mg/dL Phosphorus (2.6-4.7) mg/dL Magnesium 1.8 (1.8-2.4) mg/dL Total Bilirubin 0.5 (0.2-1.0) mg/dL AST 11 L (15-37) U/L ALT 18 (14-63) U/L Alkaline Phosphatase 134 H (46-116) U/L Creatine Kinase (26-276) U/L Troponin I High Sens 12.000 (0-51.000) pg/mL C-Reactive Protein (0.0-0.9) mg/dL Total Protein 7.0 (6.4-8.2) g/dL Albumin 2.48 L (3.40-5.00) g/dL 11/08/20 11/08/20 11/08/20 Range/Units 17:11 17:58 18:57 WBC (5.00-10.00) 10^3/uL RBC (3.80-5.50) 10^6/uL Hgb (12.0-16.0) g/dL Hct (37.0-47.0) % MCV (82.0-92.0) fL MCH (27.0-31.0) pg MCHC (32.0-36.0) g/dL RDW (11.5-14.5) % Plt Count (150-400) 10^3/uL MPV (7.4-10.4) fL Add Manual Diff Neutrophils % (Manual) (50-70) % Band Neutrophils % (4-12) % Lymphocytes % (Manual) (20-40) % Monocytes % (Manual) (2-8) % Metamyelocytes % Platelet Estimate ESR (0-30) mm/hr PT (9.2-11.2) SEC INR (0.9-1.1) APTT (22.8-31.4) SEC D-Dimer, Quantitative (<400) ng/mL POC ABG pH (7.35-7.45) pH ABG pH (7.35-7.45) POC ABG pCO2 (35-48) mmHg ABG pCO2 (35-45) mmHG POC ABG pO2 (83-108) mmHg ABG pO2 (80-105) mmHG POC ABG HCO3 (21-28) mmol/L ABG HCO3 (22-26) mmol/L ABG Total CO2 (23-27) mmol/L POC ABG O2 Sat (94-98) % ABG O2 Saturation (95-98) % ABG Base Excess (-2-3) mmol/L VBG pH (7.31-7.41) VBG pCO2 (41-51) mmHG VBG pO2 mmHG VBG HCO3 (23-28) mmol/L VBG Total CO2 mmol/L VBG O2 Saturation % VBG Base Excess ((-2)-3) mmol/L O2 Delivery Device Sodium (136-145) mmol/L Potassium (3.5-5.1) mmol/L Chloride (98-107) mmol/L Carbon Dioxide (21.0-32.0) mmol/L Anion Gap (5-15) mmol/L BUN (7-18) mg/dL Creatinine (0.51-1.17) mg/dL Est Cr Clr Drug Dosing mL/min Estimated GFR (MDRD) mL/min Glucose (70-140) mg/dL POC Glucose 257 H 225 H 184 H (70-140) mg/dL Lactic Acid (0.4-2.0) mmol/L Calcium (8.7-10.3) mg/dL Phosphorus (2.6-4.7) mg/dL Magnesium (1.8-2.4) mg/dL Total Bilirubin (0.2-1.0) mg/dL AST (15-37) U/L ALT (14-63) U/L Alkaline Phosphatase (46-116) U/L Creatine Kinase (26-276) U/L Troponin I High Sens (0-51.000) pg/mL C-Reactive Protein (0.0-0.9) mg/dL Total Protein (6.4-8.2) g/dL Albumin (3.40-5.00) g/dL 11/08/20 11/08/20 11/08/20 Range/Units 19:48 20:50 20:50 WBC 14.69 H (5.00-10.00) 10^3/uL RBC 4.59 (3.80-5.50) 10^6/uL Hgb 11.7 L (12.0-16.0) g/dL Hct 37.5 (37.0-47.0) % MCV 81.7 L (82.0-92.0) fL MCH 25.5 L (27.0-31.0) pg MCHC 31.2 L (32.0-36.0) g/dL RDW 14.4 (11.5-14.5) % Plt Count 412 H (150-400) 10^3/uL MPV 9.3 (7.4-10.4) fL Add Manual Diff Yes Neutrophils % (Manual) 74 H (50-70) % Band Neutrophils % 9 (4-12) % Lymphocytes % (Manual) 11 L (20-40) % Monocytes % (Manual) 4 (2-8) % Metamyelocytes % 2 Platelet Estimate Increased ESR (0-30) mm/hr PT (9.2-11.2) SEC INR (0.9-1.1) APTT (22.8-31.4) SEC D-Dimer, Quantitative (<400) ng/mL POC ABG pH (7.35-7.45) pH ABG pH (7.35-7.45) POC ABG pCO2 (35-48) mmHg ABG pCO2 (35-45) mmHG POC ABG pO2 (83-108) mmHg ABG pO2 (80-105) mmHG POC ABG HCO3 (21-28) mmol/L ABG HCO3 (22-26) mmol/L ABG Total CO2 (23-27) mmol/L POC ABG O2 Sat (94-98) % ABG O2 Saturation (95-98) % ABG Base Excess (-2-3) mmol/L VBG pH 7.18 L (7.31-7.41) VBG pCO2 20 L (41-51) mmHG VBG pO2 66 mmHG VBG HCO3 7 L (23-28) mmol/L VBG Total CO2 9 mmol/L VBG O2 Saturation 88 % VBG Base Excess -19 L ((-2)-3) mmol/L O2 Delivery Device Room air Sodium (136-145) mmol/L Potassium (3.5-5.1) mmol/L Chloride (98-107) mmol/L Carbon Dioxide (21.0-32.0) mmol/L Anion Gap (5-15) mmol/L BUN (7-18) mg/dL Creatinine (0.51-1.17) mg/dL Est Cr Clr Drug Dosing mL/min Estimated GFR (MDRD) mL/min Glucose (70-140) mg/dL POC Glucose 168 H (70-140) mg/dL Lactic Acid (0.4-2.0) mmol/L Calcium (8.7-10.3) mg/dL Phosphorus (2.6-4.7) mg/dL Magnesium (1.8-2.4) mg/dL Total Bilirubin (0.2-1.0) mg/dL AST (15-37) U/L ALT (14-63) U/L Alkaline Phosphatase (46-116) U/L Creatine Kinase (26-276) U/L Troponin I High Sens (0-51.000) pg/mL C-Reactive Protein (0.0-0.9) mg/dL Total Protein (6.4-8.2) g/dL Albumin (3.40-5.00) g/dL 11/08/20 11/08/20 11/08/20 Range/Units 20:50 21:00 21:00 WBC (5.00-10.00) 10^3/uL RBC (3.80-5.50) 10^6/uL Hgb (12.0-16.0) g/dL Hct (37.0-47.0) % MCV (82.0-92.0) fL MCH (27.0-31.0) pg MCHC (32.0-36.0) g/dL RDW (11.5-14.5) % Plt Count (150-400) 10^3/uL MPV (7.4-10.4) fL Add Manual Diff Neutrophils % (Manual) (50-70) % Band Neutrophils % (4-12) % Lymphocytes % (Manual) (20-40) % Monocytes % (Manual) (2-8) % Metamyelocytes % Platelet Estimate ESR (0-30) mm/hr PT (9.2-11.2) SEC INR (0.9-1.1) APTT (22.8-31.4) SEC D-Dimer, Quantitative (<400) ng/mL POC ABG pH (7.35-7.45) pH ABG pH 7.20 L* (7.35-7.45) POC ABG pCO2 (35-48) mmHg ABG pCO2 17 L* (35-45) mmHG POC ABG pO2 (83-108) mmHg ABG pO2 87 (80-105) mmHG POC ABG HCO3 (21-28) mmol/L ABG HCO3 6.6 L (22-26) mmol/L ABG Total CO2 8 L (23-27) mmol/L POC ABG O2 Sat (94-98) % ABG O2 Saturation 94 L (95-98) % ABG Base Excess -19 L (-2-3) mmol/L VBG pH (7.31-7.41) VBG pCO2 (41-51) mmHG VBG pO2 mmHG VBG HCO3 (23-28) mmol/L VBG Total CO2 mmol/L VBG O2 Saturation % VBG Base Excess ((-2)-3) mmol/L O2 Delivery Device Room air Sodium 140 (136-145) mmol/L Potassium 3.8 (3.5-5.1) mmol/L Chloride 108 H (98-107) mmol/L Carbon Dioxide 6.6 L (21.0-32.0) mmol/L Anion Gap 29.2 H (5-15) mmol/L BUN 29 H (7-18) mg/dL Creatinine 0.73 (0.51-1.17) mg/dL Est Cr Clr Drug Dosing 60.17 mL/min Estimated GFR (MDRD) > 60 mL/min Glucose 147 H (70-140) mg/dL POC Glucose (70-140) mg/dL Lactic Acid (0.4-2.0) mmol/L Calcium 8.1 L (8.7-10.3) mg/dL Phosphorus 1.6 L (2.6-4.7) mg/dL Magnesium (1.8-2.4) mg/dL Total Bilirubin (0.2-1.0) mg/dL AST (15-37) U/L ALT (14-63) U/L Alkaline Phosphatase (46-116) U/L Creatine Kinase (26-276) U/L Troponin I High Sens (0-51.000) pg/mL C-Reactive Protein (0.0-0.9) mg/dL Total Protein (6.4-8.2) g/dL Albumin (3.40-5.00) g/dL 11/08/20 11/08/20 11/09/20 Range/Units 21:04 22:00 00:01 WBC (5.00-10.00) 10^3/uL RBC (3.80-5.50) 10^6/uL Hgb (12.0-16.0) g/dL Hct (37.0-47.0) % MCV (82.0-92.0) fL MCH (27.0-31.0) pg MCHC (32.0-36.0) g/dL RDW (11.5-14.5) % Plt Count (150-400) 10^3/uL MPV (7.4-10.4) fL Add Manual Diff Neutrophils % (Manual) (50-70) % Band Neutrophils % (4-12) % Lymphocytes % (Manual) (20-40) % Monocytes % (Manual) (2-8) % Metamyelocytes % Platelet Estimate ESR (0-30) mm/hr PT (9.2-11.2) SEC INR (0.9-1.1) APTT (22.8-31.4) SEC D-Dimer, Quantitative (<400) ng/mL POC ABG pH (7.35-7.45) pH ABG pH (7.35-7.45) POC ABG pCO2 (35-48) mmHg ABG pCO2 (35-45) mmHG POC ABG pO2 (83-108) mmHg ABG pO2 (80-105) mmHG POC ABG HCO3 (21-28) mmol/L ABG HCO3 (22-26) mmol/L ABG Total CO2 (23-27) mmol/L POC ABG O2 Sat (94-98) % ABG O2 Saturation (95-98) % ABG Base Excess (-2-3) mmol/L VBG pH (7.31-7.41) VBG pCO2 (41-51) mmHG VBG pO2 mmHG VBG HCO3 (23-28) mmol/L VBG Total CO2 mmol/L VBG O2 Saturation % VBG Base Excess ((-2)-3) mmol/L O2 Delivery Device Sodium (136-145) mmol/L Potassium (3.5-5.1) mmol/L Chloride (98-107) mmol/L Carbon Dioxide (21.0-32.0) mmol/L Anion Gap (5-15) mmol/L BUN (7-18) mg/dL Creatinine (0.51-1.17) mg/dL Est Cr Clr Drug Dosing mL/min Estimated GFR (MDRD) mL/min Glucose (70-140) mg/dL POC Glucose 146 H 102 132 (70-140) mg/dL Lactic Acid (0.4-2.0) mmol/L Calcium (8.7-10.3) mg/dL Phosphorus (2.6-4.7) mg/dL Magnesium (1.8-2.4) mg/dL Total Bilirubin (0.2-1.0) mg/dL AST (15-37) U/L ALT (14-63) U/L Alkaline Phosphatase (46-116) U/L Creatine Kinase (26-276) U/L Troponin I High Sens (0-51.000) pg/mL C-Reactive Protein (0.0-0.9) mg/dL Total Protein (6.4-8.2) g/dL Albumin (3.40-5.00) g/dL 11/09/20 11/09/20 11/09/20 Range/Units 02:10 05:05 08:10 WBC (5.00-10.00) 10^3/uL RBC (3.80-5.50) 10^6/uL Hgb (12.0-16.0) g/dL Hct (37.0-47.0) % MCV (82.0-92.0) fL MCH (27.0-31.0) pg MCHC (32.0-36.0) g/dL RDW (11.5-14.5) % Plt Count (150-400) 10^3/uL MPV (7.4-10.4) fL Add Manual Diff Neutrophils % (Manual) (50-70) % Band Neutrophils % (4-12) % Lymphocytes % (Manual) (20-40) % Monocytes % (Manual) (2-8) % Metamyelocytes % Platelet Estimate ESR (0-30) mm/hr PT (9.2-11.2) SEC INR (0.9-1.1) APTT (22.8-31.4) SEC D-Dimer, Quantitative (<400) ng/mL POC ABG pH 7.37 (7.35-7.45) pH ABG pH (7.35-7.45) POC ABG pCO2 22 L (35-48) mmHg ABG pCO2 (35-45) mmHG POC ABG pO2 39 L* (83-108) mmHg ABG pO2 (80-105) mmHG POC ABG HCO3 12.8 L (21-28) mmol/L ABG HCO3 (22-26) mmol/L ABG Total CO2 (23-27) mmol/L POC ABG O2 Sat 73.8 L* (94-98) % ABG O2 Saturation (95-98) % ABG Base Excess (-2-3) mmol/L VBG pH (7.31-7.41) VBG pCO2 (41-51) mmHG VBG pO2 mmHG VBG HCO3 (23-28) mmol/L VBG Total CO2 mmol/L VBG O2 Saturation % VBG Base Excess ((-2)-3) mmol/L O2 Delivery Device Sodium 141 (136-145) mmol/L Potassium 3.5 (3.5-5.1) mmol/L Chloride 108 H (98-107) mmol/L Carbon Dioxide 11.0 L (21.0-32.0) mmol/L Anion Gap 25.5 H (5-15) mmol/L BUN 26 H (7-18) mg/dL Creatinine 0.77 (0.51-1.17) mg/dL Est Cr Clr Drug Dosing 57.04 mL/min Estimated GFR (MDRD) > 60 mL/min Glucose 202 H (70-140) mg/dL POC Glucose 200 H (70-140) mg/dL Lactic Acid (0.4-2.0) mmol/L Calcium 8.2 L (8.7-10.3) mg/dL Phosphorus (2.6-4.7) mg/dL Magnesium (1.8-2.4) mg/dL Total Bilirubin (0.2-1.0) mg/dL AST (15-37) U/L ALT (14-63) U/L Alkaline Phosphatase (46-116) U/L Creatine Kinase (26-276) U/L Troponin I High Sens (0-51.000) pg/mL C-Reactive Protein (0.0-0.9) mg/dL Total Protein (6.4-8.2) g/dL Albumin (3.40-5.00) g/dL 11/09/20 11/09/20 Range/Units 08:20 08:20 WBC 18.15 H (5.00-10.00) 10^3/uL RBC 4.77 (3.80-5.50) 10^6/uL Hgb 12.1 (12.0-16.0) g/dL Hct 37.2 (37.0-47.0) % MCV 78.0 L D (82.0-92.0) fL MCH 25.4 L (27.0-31.0) pg MCHC 32.5 (32.0-36.0) g/dL RDW 14.4 (11.5-14.5) % Plt Count 365 (150-400) 10^3/uL MPV 9.7 (7.4-10.4) fL Add Manual Diff Yes Neutrophils % (Manual) 88 H (50-70) % Band Neutrophils % 5 (4-12) % Lymphocytes % (Manual) 2 L (20-40) % Monocytes % (Manual) 5 (2-8) % Metamyelocytes % Platelet Estimate Increased ESR (0-30) mm/hr PT (9.2-11.2) SEC INR (0.9-1.1) APTT (22.8-31.4) SEC D-Dimer, Quantitative (<400) ng/mL POC ABG pH (7.35-7.45) pH ABG pH (7.35-7.45) POC ABG pCO2 (35-48) mmHg ABG pCO2 (35-45) mmHG POC ABG pO2 (83-108) mmHg ABG pO2 (80-105) mmHG POC ABG HCO3 (21-28) mmol/L ABG HCO3 (22-26) mmol/L ABG Total CO2 (23-27) mmol/L POC ABG O2 Sat (94-98) % ABG O2 Saturation (95-98) % ABG Base Excess (-2-3) mmol/L VBG pH (7.31-7.41) VBG pCO2 (41-51) mmHG VBG pO2 mmHG VBG HCO3 (23-28) mmol/L VBG Total CO2 mmol/L VBG O2 Saturation % VBG Base Excess ((-2)-3) mmol/L O2 Delivery Device Sodium 142 (136-145) mmol/L Potassium 3.2 L (3.5-5.1) mmol/L Chloride 108 H (98-107) mmol/L Carbon Dioxide 14.8 L (21.0-32.0) mmol/L Anion Gap 22.4 H (5-15) mmol/L BUN 25 H (7-18) mg/dL Creatinine 0.67 (0.51-1.17) mg/dL Est Cr Clr Drug Dosing 65.55 mL/min Estimated GFR (MDRD) > 60 mL/min Glucose 187 H (70-140) mg/dL POC Glucose (70-140) mg/dL Lactic Acid (0.4-2.0) mmol/L Calcium 8.1 L (8.7-10.3) mg/dL Phosphorus (2.6-4.7) mg/dL Magnesium (1.8-2.4) mg/dL Total Bilirubin 0.4 (0.2-1.0) mg/dL AST 18 (15-37) U/L ALT 18 (14-63) U/L Alkaline Phosphatase 100 (46-116) U/L Creatine Kinase (26-276) U/L Troponin I High Sens (0-51.000) pg/mL C-Reactive Protein (0.0-0.9) mg/dL Total Protein 5.7 L (6.4-8.2) g/dL Albumin 2.05 L (3.40-5.00) g/dL Result Diagrams: 11/09/20 08:20 11/09/20 08:20 Sepsis Event Note - Evaluation Sepsis Screening Result: Sepsis Risk - Focused Exam Vital Signs: Vital Signs Temp Pulse Resp BP Pulse Ox 11/09/20 06:00 97.7 F 114 H 24 H 128/58 L 93 L 11/09/20 05:46 116 H 136/67 11/09/20 05:31 117 H 139/51 L 11/09/20 05:15 112 H 153/73 H 11/09/20 05:00 111 H 137/63 11/09/20 04:45 109 H 136/74 11/09/20 04:30 112 H 144/74 H 11/09/20 04:15 112 H 145/70 H 11/09/20 04:00 114 H 166/79 H 11/09/20 03:47 111 H 104/55 L 11/09/20 03:30 113 H 131/65 11/09/20 03:15 113 H 118/59 L 11/09/20 03:01 116 H 128/59 L 11/09/20 03:00 118 H 128/59 L 11/09/20 02:45 119 H 138/62 11/09/20 02:40 97.3 F 28 H 11/09/20 02:30 113 H 126/54 L 11/09/20 02:15 109 H 128/48 L 11/09/20 02:01 114 H 156/65 H 11/09/20 01:45 116 H 134/57 L 11/09/20 01:31 146/62 H 11/09/20 01:16 116 H 141/68 H 11/09/20 01:01 128 H 121/82 11/09/20 00:46 110 H 112/41 L 96 11/09/20 00:30 117 H 140/50 L 96 11/09/20 00:15 114 H 123/48 L 97 11/09/20 00:01 114 H 126/49 L 96 11/08/20 23:50 116 H 127/40 L 97 11/08/20 23:31 113 H 146/57 H 96 11/08/20 23:15 116 H 157/73 H 97 11/08/20 23:01 105 H 145/87 H 99 11/08/20 22:46 106 H 147/80 H 95 - Problem List Review Problem List Initiated/Reviewed/Updated: Yes - Plan Plan:: HPI summary: Jannet is a 70yF who was tested for COVID at the [facility] on Friday11/06/20, the result of which was positive. Arrangements were made for her to receive IV fluids and REGEN-COV at [facility] Friday am. Patient tolerated this well. She then called [facility] on Friday reporting diarrhea and was a dvised to try immodium. Patient subsequently presented to the [facility] ER by last evening due to nausea, dizziness, weakness symptoms related to COVID. ED course: Afebrile, normotensive in ER. Tachycardia noted. Oxygenation stable on room air. CXR negative. Na 136, K 3.3, BUN 44, Creatinine 0.98. Glucose 256, Alk phos 117, Albumin 2.79, Anion gap 30.9, Urine ketones > 160. She was admitted to observation status for IV fluids which initially was ordered as NS + 40 mEq KCl @ 125ml/hr due to mild hypokalemia per Dr Rup. Patient restarted on her home medications upon admission including her lantus, however this was ordered at 5 units daily, home dose is 45 units daily in addition to low dose novolog ssi. Hospital course: 11/08/20: Patient rather nauseated upon rounds this morning, she is feeling quite ill. Tachycardia persists, will start cardiac monitoring. Patient quite ill appearing and pale. Lung sounds clear, HR tachy and regular. Bowel sounds present, abdomen soft, NT. Additional 10 units of lantus to be given in addition to 5 given this morning due to blood glucose of 315. No morning labs were ordered, will order complete recommended admission panel per [facility] guidelines incluidng CBC, CK, CRP, LDH, procal, PT/INR, PTT, lactic acid, Mg and will obtain ABG's due to concern for acidosis given initial results in ER. Will hold off on d-dimer as patient denies SOB and is on room air. Consider adding this if indicated based on clinical course. 11/09/2020, overnight, visual hallucinations--Ativan given, NG tube placed, immediate 600 out, 1000 cc overnight shift however appears to be slowing down--light brown, verify placement, indwelling Murray catheter laced after bladder scan showed ~800 mL, with 800 immediate return, past 24 hours, Intake 4 800, output 2100 past 24 hours however 800 cc this a.m. during rounds. Favorable BP/MAP, improving ABGs--pH now improved to 7.37, CO2 22, PO2 39, anion gap remains elevated at 22.4 however trending positively, overall fluids status close to euvolemic, ongoing tachycardia, No fevers, RR 24-30, SaO2 93-97%, RA. Unfavorable inflammatory marker indices with platelet thrombocytosis likely reactive, however no bandemia. Insulin drip discontinued at ~2300 last night at glucose of 102, changed to SS q2h, potassium trending down low as one would expect given insulin gtt. fluids of D5 one half normal saline along with LR ongoing this morning during rounds. Sodium bicarb 50 mEq given last night along with 20 MEQ of KCl --CTA prior to NG tube decompression demonstrates no signs of PE however abdominal stomach distention ?SBO with fluid in the thoracic esophagus, follow-u p abdominal CT abdomen pelvis demonstrates distended loops of small bowel, no transition point, markedly dilated stomach--all prior to NGT --Chest x-ray for NG placement demonstrates proper NG placement --Hydroxybutyrate result elevated at 8.89 Hospitalization problems and plan: --Metabolic/Ketoacidosis--Hydroxybutyrate result elevated at 8.89, improving, GI fluid loss likely etiology --Ileus vs SBO, decompression--will trial clamping --Gastroenteritis, seems to improved, no more diarrhea --Hypophosphatemia, likely due to GI obstruction/transcellular shift due to ins ulin, should improve with acidotic correction # COVID-19 - normal oxygenation on room air, will hold off on ramdesevir # Tachycardia # Dehydration, nearing euvolemic state # Nausea, now with NGT, improved. 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 - on metformin XL 500mg PO daily, novolog sliding scale QID, lantus 45u daily, asa 325mg PO daily # Iron deficiency - on ferrous sulfate 325mg PO daily # Low back pain with sciatica - takes ibuprofen 400mg PO daily at home # Pap smear with atypical squamous cells of undetermined significance (ACS-US) Hospitalization details: # FEN: NS @ 125ml/hr, repeat labs this am, clear liquids # PPX: lovenox 40mg sc # Code status: FULL CODE # Emergency contact: Disposition/overall plan --Patient meets qualification for INPT status, cardiac monitoring --Given trends will DC LR and change D5 1/2 NS TO D51/2 NS with 40 MEQ K, (this will give her 60 MEQ of K+/24 hrs), will adjust based off NG output --Potassium supplementation, aggressive given recent insulin and Ileus. K+ Bicarbonate would be ideal given acidotic state however since NGT, will give IV K+ --Clamp NG tube x4 hours, call Jasiel for output results or sooner if nausea--HOB up 30 degrees since trial clamping NGT, K+ suppport should improve GI/SBO condition. --Assess mg level --Given favorable low pitched bowel tones, will low dose of IV Reglan--monitor GI closely --BMP, every 6 hours
[2020-11-09] MEDS ORDERED: Insulin Glargine,Hum.Rec.Anlog 100 UNIT/ML 3 ML Pen SUBCUT ONE (11:00)
[2020-11-09] MEDS ORDERED: Potassium Chloride 20 MEQ in Premix Bag 1 BAG IV ONE ×2 (11:59→15:00)
[2020-11-09] MEDS ORDERED: D5 1/2 NS w/ 40 mEq/L KCl 1,000 ML IV SCH (12:00)
[2020-11-09] MEDS: Enoxaparin 40 MG/0.4 ML Syringe SUBCUT SCH (12:28)
[2020-11-09] MEDS: Metoclopramide 10 MG/2 ML SDV IVPUSH SCH ×2 (12:33→18:23)
[2020-11-09 15:45] LABS: ANION GAP 22.2 mmol/L (5-15); CHLORIDE,CL 109 mmol/L (98-107); SODIUM,NA 142 mmol/L (136-145)
[2020-11-09] MEDS: D5 1/2 NS w/ 40 mEq/L KCl 1,000 ML IV SCH (15:59)
[2020-11-09] MEDS ORDERED: Haloperidol 0.5 MG Tab PO ONE ×2 (19:47→20:35)
[2020-11-09] MEDS ORDERED: Alum Hydrox/Mag Hydrox/Simeth 30 ML, Lidocaine 2% 15 ML PO ONE ×2 (20:35)
[2020-11-09 21:02] LABS: O2 DELIVERY DEVICE ROOM AIR
[2020-11-09 21:09] LABS: BASE EXCESS VENOUS -8 mmol/L ((-2)-3); BICARBONATE,VENOUS 17 mmol/L (23-28); O2 SATURATION VENOUS 64 %; PCO2 VENOUS 32 mmHG (41-51); PH,VENOUS 7.33 (7.31-7.41); PO2 VENOUS 35 mmHG
[2020-11-09] MEDS: Pantoprazole 40 MG Vial IVPUSH SCH (22:38)
[2020-11-10] MEDS: Insulin Aspart 100 Units/ML 3 ML Pen SUBCUT SCH ×12 (00:03→22:02)
[2020-11-10] MEDS ORDERED: LORazepam 2 MG/ML SDV IVPUSH ONE ×2 (01:53→05:22)
[2020-11-10 06:09] LABS: O2 DELIVERY DEVICE ROOM AIR
[2020-11-10 06:13] LABS: BASE EXCESS ARTERIAL -5 mmol/L (-2-3); O2 SATURATION ARTERIAL 96 % (95-98); PCO2 ARTERIAL 25 mmHG (35-45); PO2 ARTERIAL 76 mmHG (80-105)
[2020-11-10 06:30] LABS: ANION GAP 16.3 mmol/L (5-15); CHLORIDE,CL 111 mmol/L (98-107); SODIUM,NA 145 mmol/L (136-145)
[2020-11-10] MEDS: D5 1/2 NS w/ 40 mEq/L KCl 1,000 ML IV SCH (06:42)
[2020-11-10] MEDS: Phosphorus #1 250 MG Tab PO SCH ×3 (07:55→09:48)
--- NOTE | 2020-11-10 07:57 | CR ---
[id number] RAD/RAD Abdomen Upright Exam: RAD Abdomen Upright Clinical Data: ABDOMINAL DISTENTION COMPARISON: CORRELATION IS MADE WITH YESTERDAY'S CAT SCAN FINDINGS: Small bowel obstruction is seen A decubitus image left-sided down and right side up shows no free air There is an NG tube in the stomach IMPRESSION: NO FREE AIR BOWEL DISTENTION Vinay Dawson MD 11/10/20 0754 Thank you for allowing us to participate in the care of your patient.
[2020-11-10] MEDS ORDERED: Haloperidol Lactate 5 MG/ML SDV IM ONE (08:27)
[2020-11-10] MEDS ORDERED: Sodium Phosphate 45 MMOLE in Sodium Chloride 0.9% 250 ML IV ONE (11:30)
[2020-11-10] MEDS ORDERED: Bisacodyl 10 MG Supp RECTAL ONE (11:50)
[2020-11-10] MEDS ORDERED: Morphine 2 MG/ML SYRINGE IVPUSH ONE (11:52)
--- NOTE | 2020-11-10 12:06 | CCN ---
DATE: 11/08/2020 TIME: 8:20 p.m. I was asked to see this patient because of increasing metabolic difficulty. The patient is a 70-year-old patient who has been admitted to the hospital on 11/07 because of increased debilitation and COVID positive status. After being admitted to the hospital, the patient was treated with IV fluids primarily and control of her diabetes mellitus. The patient was found to be markedly acidotic earlier today with pH of 7.12, PCO2 12, and base excess was -23. Her sodium, potassium and chloride were normal. Her BUN was 35 and anion gap was 32.8. Glucose last was 225 and currently it is 160 at 8:15 p.m. The patient's blood pressure is low at 117/58. The patient is complaining of a fair amount of abdominal pain. Her pulse oximetry is 106, temperature 97.6. The patient had a CT angiogram which was negative for pulmonary embolism. There was noted to be marked distention of the stomach as well as visualized loops of small bowel, question of small bowel obstruction was raised. Chest x-ray performed today showed no pneumonia or edema. The patient was examined by myself. She complains of mostly upper abdominal pain and discomfort. PHYSICAL EXAMINATION: GENERAL: She is alert. Her peripheries are somewhat cool, however. HEAD: Negative. EYES: Normal. EARS AND NOSE: Normal. THROAT: Mucous membranes are slightly dry. NECK: Supple. No lymph nodes are enlarged. Thyroid gland is not enlarged. LUNGS: Clear. HEART: Regular rhythm. ABDOMEN: Soft, somewhat tender, generalized. No rebound. EXTREMITIES: Somewhat cool. Peripheral pulses are good. FINAL DIAGNOSES: 1. COVID positive status. 2. Severe metabolic acidosis, pH of 7.1. The patient has a marked anion gap of 32.8. The patient is slightly dehydrated, BUN is 35. The patient has leukocytosis. PLAN: 1. Give her an IV bolus of normal saline at 500 mL. 2. To keep her warm with warm blankets. 3. To put an NG tube and connect it to low intermittent suction to relieve the gastric distention.Reassess her abdomen in a few hours and see if the obstructive symptoms improve. 4. To repeat the blood gases and see how they are. After the review of these lab tests, if necessary, we will again contact [facility] at [facility]. I have apprised the patient of her condition. CRITICAL CARE TIME: /[id number]/MODL BOBO
[2020-11-10] MEDS ORDERED: Metoprolol Tartrate 5 MG/5 ML SDV IVPUSH ONE ×2 (12:24→22:00)
--- NOTE | 2020-11-10 12:34 | PCM.PN ---
- General Info Date of Service: 11/10/20 Subjective Update: Unable to complete full ROM due to sedation/AMS Functional Status: Reports: Urinating, New Symptoms (tachycardia, agitation). Denies: Pain Controlled, Tolerating Diet, Ambulating - Review of Systems General: Denies: Fever Pulmonary: Denies: Shortness of Breath, Cough, Sputum Cardiovascular: Denies: Chest Pain Gastrointestinal: Reports: Abdominal Pain, Difficulty Swallowing. Denies: Diarrhea, Nausea, Vomiting Genitourinary: Reports: Other (murray) Psychiatric: Reports: Agitation - Patient Data Vitals - Most Recent: Last Vital Signs Temp 96.7 F L 11/10/20 10:44 Pulse 136 H 11/10/20 10:44 Resp 28 H 11/10/20 10:44 BP 158/88 H 11/10/20 10:44 Pulse Ox 97 11/10/20 10:44 Weight - Most Recent: 200 lb I&O - Last 24 Hours: Intake & Output 11/09/20 11/10/20 11/10/20 22:59 06:59 14:59 Intake Total 929 848 Output Total 400 250 Balance 529 598 Lab Results Last 24 Hours: Laboratory Results - last 24 hr 11/09/20 11/09/20 11/09/20 Range/Units 04:02 05:59 08:17 WBC (5.00-10.00) 10^3/uL RBC (3.80-5.50) 10^6/uL Hgb (12.0-16.0) g/dL Hct (37.0-47.0) % MCV (82.0-92.0) fL MCH (27.0-31.0) pg MCHC (32.0-36.0) g/dL RDW (11.5-14.5) % Plt Count (150-400) 10^3/uL MPV (7.4-10.4) fL Immature Gran % (Auto) (0.0-5.0) % Neut % (Auto) (50.0-70.0) % Lymph % (Auto) (20.0-40.0) % [place] % (Auto) (2.0-8.0) % Eos % (Auto) (1.0-3.0) % Baso % (Auto) (0.0-1.0) % Neut # (Auto) (2.50-7.00) 10^3/uL Lymph # (Auto) (1.00-4.00) 10^3/uL [place] # (Auto) (0.10-0.80) 10^3/uL Eos # (Auto) (0.10-0.30) 10^3/uL Baso # (Auto) (0.00-0.10) 10^3/uL Immature Gran # (Auto) (0.00-0.50) 10^3/uL ABG pH (7.35-7.45) ABG pCO2 (35-45) mmHG ABG pO2 (80-105) mmHG ABG HCO3 (22-26) mmol/L ABG Total CO2 (23-27) mmol/L ABG O2 Saturation (95-98) % ABG Base Excess (-2-3) mmol/L VBG pH (7.31-7.41) VBG pCO2 (41-51) mmHG VBG pO2 mmHG VBG HCO3 (23-28) mmol/L VBG Total CO2 mmol/L VBG O2 Saturation % VBG Base Excess ((-2)-3) mmol/L O2 Delivery Device Sodium (136-145) mmol/L Potassium (3.5-5.1) mmol/L Chloride (98-107) mmol/L Carbon Dioxide (21.0-32.0) mmol/L Anion Gap (5-15) mmol/L BUN (7-18) mg/dL Creatinine (0.51-1.17) mg/dL Est Cr Clr Drug Dosing mL/min Estimated GFR (MDRD) mL/min Glucose (70-140) mg/dL POC Glucose 217 H 187 H 157 H (70-140) mg/dL Lactic Acid (0.4-2.0) mmol/L Calcium (8.7-10.3) mg/dL Phosphorus (2.6-4.7) mg/dL Magnesium (1.8-2.4) mg/dL Total Bilirubin (0.2-1.0) mg/dL AST (15-37) U/L ALT (14-63) U/L Alkaline Phosphatase (46-116) U/L Total Protein (6.4-8.2) g/dL Albumin (3.40-5.00) g/dL Amylase (25-125) U/L 11/09/20 11/09/20 11/09/20 Range/Units 10:32 12:21 14:08 WBC (5.00-10.00) 10^3/uL RBC (3.80-5.50) 10^6/uL Hgb (12.0-16.0) g/dL Hct (37.0-47.0) % MCV (82.0-92.0) fL MCH (27.0-31.0) pg MCHC (32.0-36.0) g/dL RDW (11.5-14.5) % Plt Count (150-400) 10^3/uL MPV (7.4-10.4) fL Immature Gran % (Auto) (0.0-5.0) % Neut % (Auto) (50.0-70.0) % Lymph % (Auto) (20.0-40.0) % [place] % (Auto) (2.0-8.0) % Eos % (Auto) (1.0-3.0) % Baso % (Auto) (0.0-1.0) % Neut # (Auto) (2.50-7.00) 10^3/uL Lymph # (Auto) (1.00-4.00) 10^3/uL [place] # (Auto) (0.10-0.80) 10^3/uL Eos # (Auto) (0.10-0.30) 10^3/uL Baso # (Auto) (0.00-0.10) 10^3/uL Immature Gran # (Auto) (0.00-0.50) 10^3/uL ABG pH (7.35-7.45) ABG pCO2 (35-45) mmHG ABG pO2 (80-105) mmHG ABG HCO3 (22-26) mmol/L ABG Total CO2 (23-27) mmol/L ABG O2 Saturation (95-98) % ABG Base Excess (-2-3) mmol/L VBG pH (7.31-7.41) VBG pCO2 (41-51) mmHG VBG pO2 mmHG VBG HCO3 (23-28) mmol/L VBG Total CO2 mmol/L VBG O2 Saturation % VBG Base Excess ((-2)-3) mmol/L O2 Delivery Device Sodium (136-145) mmol/L Potassium (3.5-5.1) mmol/L Chloride (98-107) mmol/L Carbon Dioxide (21.0-32.0) mmol/L Anion Gap (5-15) mmol/L BUN (7-18) mg/dL Creatinine (0.51-1.17) mg/dL Est Cr Clr Drug Dosing mL/min Estimated GFR (MDRD) mL/min Glucose (70-140) mg/dL POC Glucose 203 H 265 H 241 H (70-140) mg/dL Lactic Acid (0.4-2.0) mmol/L Calcium (8.7-10.3) mg/dL Phosphorus (2.6-4.7) mg/dL Magnesium (1.8-2.4) mg/dL Total Bilirubin (0.2-1.0) mg/dL AST (15-37) U/L ALT (14-63) U/L Alkaline Phosphatase (46-116) U/L Total Protein (6.4-8.2) g/dL Albumin (3.40-5.00) g/dL Amylase (25-125) U/L 11/09/20 11/09/20 11/09/20 Range/Units 15:15 15:15 16:03 WBC (5.00-10.00) 10^3/uL RBC (3.80-5.50) 10^6/uL Hgb (12.0-16.0) g/dL Hct (37.0-47.0) % MCV (82.0-92.0) fL MCH (27.0-31.0) pg MCHC (32.0-36.0) g/dL RDW (11.5-14.5) % Plt Count (150-400) 10^3/uL MPV (7.4-10.4) fL Immature Gran % (Auto) (0.0-5.0) % Neut % (Auto) (50.0-70.0) % Lymph % (Auto) (20.0-40.0) % [place] % (Auto) (2.0-8.0) % Eos % (Auto) (1.0-3.0) % Baso % (Auto) (0.0-1.0) % Neut # (Auto) (2.50-7.00) 10^3/uL Lymph # (Auto) (1.00-4.00) 10^3/uL [place] # (Auto) (0.10-0.80) 10^3/uL Eos # (Auto) (0.10-0.30) 10^3/uL Baso # (Auto) (0.00-0.10) 10^3/uL Immature Gran # (Auto) (0.00-0.50) 10^3/uL ABG pH (7.35-7.45) ABG pCO2 (35-45) mmHG ABG pO2 (80-105) mmHG ABG HCO3 (22-26) mmol/L ABG Total CO2 (23-27) mmol/L ABG O2 Saturation (95-98) % ABG Base Excess (-2-3) mmol/L VBG pH (7.31-7.41) VBG pCO2 (41-51) mmHG VBG pO2 mmHG VBG HCO3 (23-28) mmol/L VBG Total CO2 mmol/L VBG O2 Saturation % VBG Base Excess ((-2)-3) mmol/L O2 Delivery Device Sodium 142 (136-145) mmol/L Potassium 3.5 (3.5-5.1) mmol/L Chloride 109 H (98-107) mmol/L Carbon Dioxide 14.3 L (21.0-32.0) mmol/L Anion Gap 22.2 H (5-15) mmol/L BUN 26 H (7-18) mg/dL Creatinine 0.64 (0.51-1.17) mg/dL Est Cr Clr Drug Dosing 68.63 mL/min Estimated GFR (MDRD) > 60 mL/min Glucose 242 H (70-140) mg/dL POC Glucose 212 H (70-140) mg/dL Lactic Acid (0.4-2.0) mmol/L Calcium 8.5 L (8.7-10.3) mg/dL Phosphorus (2.6-4.7) mg/dL Magnesium 1.5 L (1.8-2.4) mg/dL Total Bilirubin (0.2-1.0) mg/dL AST (15-37) U/L ALT (14-63) U/L Alkaline Phosphatase (46-116) U/L Total Protein (6.4-8.2) g/dL Albumin (3.40-5.00) g/dL Amylase (25-125) U/L 11/09/20 11/09/20 11/09/20 Range/Units 18:19 20:15 21:00 WBC (5.00-10.00) 10^3/uL RBC (3.80-5.50) 10^6/uL Hgb (12.0-16.0) g/dL Hct (37.0-47.0) % MCV (82.0-92.0) fL MCH (27.0-31.0) pg MCHC (32.0-36.0) g/dL RDW (11.5-14.5) % Plt Count (150-400) 10^3/uL MPV (7.4-10.4) fL Immature Gran % (Auto) (0.0-5.0) % Neut % (Auto) (50.0-70.0) % Lymph % (Auto) (20.0-40.0) % [place] % (Auto) (2.0-8.0) % Eos % (Auto) (1.0-3.0) % Baso % (Auto) (0.0-1.0) % Neut # (Auto) (2.50-7.00) 10^3/uL Lymph # (Auto) (1.00-4.00) 10^3/uL [place] # (Auto) (0.10-0.80) 10^3/uL Eos # (Auto) (0.10-0.30) 10^3/uL Baso # (Auto) (0.00-0.10) 10^3/uL Immature Gran # (Auto) (0.00-0.50) 10^3/uL ABG pH (7.35-7.45) ABG pCO2 (35-45) mmHG ABG pO2 (80-105) mmHG ABG HCO3 (22-26) mmol/L ABG Total CO2 (23-27) mmol/L ABG O2 Saturation (95-98) % ABG Base Excess (-2-3) mmol/L VBG pH 7.33 (7.31-7.41) VBG pCO2 32 L (41-51) mmHG VBG pO2 35 mmHG VBG HCO3 17 L (23-28) mmol/L VBG Total CO2 18 mmol/L VBG O2 Saturation 64 % VBG Base Excess -8 L ((-2)-3) mmol/L O2 Delivery Device Room air Sodium (136-145) mmol/L Potassium (3.5-5.1) mmol/L Chloride (98-107) mmol/L Carbon Dioxide (21.0-32.0) mmol/L Anion Gap (5-15) mmol/L BUN (7-18) mg/dL Creatinine (0.51-1.17) mg/dL Est Cr Clr Drug Dosing mL/min Estimated GFR (MDRD) mL/min Glucose (70-140) mg/dL POC Glucose 210 H 195 H (70-140) mg/dL Lactic Acid (0.4-2.0) mmol/L Calcium (8.7-10.3) mg/dL Phosphorus (2.6-4.7) mg/dL Magnesium (1.8-2.4) mg/dL Total Bilirubin (0.2-1.0) mg/dL AST (15-37) U/L ALT (14-63) U/L Alkaline Phosphatase (46-116) U/L Total Protein (6.4-8.2) g/dL Albumin (3.40-5.00) g/dL Amylase (25-125) U/L 11/09/20 11/10/20 11/10/20 Range/Units 22:24 00:00 02:14 WBC (5.00-10.00) 10^3/uL RBC (3.80-5.50) 10^6/uL Hgb (12.0-16.0) g/dL Hct (37.0-47.0) % MCV (82.0-92.0) fL MCH (27.0-31.0) pg MCHC (32.0-36.0) g/dL RDW (11.5-14.5) % Plt Count (150-400) 10^3/uL MPV (7.4-10.4) fL Immature Gran % (Auto) (0.0-5.0) % Neut % (Auto) (50.0-70.0) % Lymph % (Auto) (20.0-40.0) % [place] % (Auto) (2.0-8.0) % Eos % (Auto) (1.0-3.0) % Baso % (Auto) (0.0-1.0) % Neut # (Auto) (2.50-7.00) 10^3/uL Lymph # (Auto) (1.00-4.00) 10^3/uL [place] # (Auto) (0.10-0.80) 10^3/uL Eos # (Auto) (0.10-0.30) 10^3/uL Baso # (Auto) (0.00-0.10) 10^3/uL Immature Gran # (Auto) (0.00-0.50) 10^3/uL ABG pH (7.35-7.45) ABG pCO2 (35-45) mmHG ABG pO2 (80-105) mmHG ABG HCO3 (22-26) mmol/L ABG Total CO2 (23-27) mmol/L ABG O2 Saturation (95-98) % ABG Base Excess (-2-3) mmol/L VBG pH (7.31-7.41) VBG pCO2 (41-51) mmHG VBG pO2 mmHG VBG HCO3 (23-28) mmol/L VBG Total CO2 mmol/L VBG O2 Saturation % VBG Base Excess ((-2)-3) mmol/L O2 Delivery Device Sodium (136-145) mmol/L Potassium (3.5-5.1) mmol/L Chloride (98-107) mmol/L Carbon Dioxide (21.0-32.0) mmol/L Anion Gap (5-15) mmol/L BUN (7-18) mg/dL Creatinine (0.51-1.17) mg/dL Est Cr Clr Drug Dosing mL/min Estimated GFR (MDRD) mL/min Glucose (70-140) mg/dL POC Glucose 179 H 166 H 143 H (70-140) mg/dL Lactic Acid (0.4-2.0) mmol/L Calcium (8.7-10.3) mg/dL Phosphorus (2.6-4.7) mg/dL Magnesium (1.8-2.4) mg/dL Total Bilirubin (0.2-1.0) mg/dL AST (15-37) U/L ALT (14-63) U/L Alkaline Phosphatase (46-116) U/L Total Protein (6.4-8.2) g/dL Albumin (3.40-5.00) g/dL Amylase (25-125) U/L 11/10/20 11/10/20 11/10/20 Range/Units 04:37 05:45 05:45 WBC 15.50 H (5.00-10.00) 10^3/uL RBC 4.36 (3.80-5.50) 10^6/uL Hgb 11.2 L (12.0-16.0) g/dL Hct 33.6 L (37.0-47.0) % MCV 77.1 L (82.0-92.0) fL MCH 25.7 L (27.0-31.0) pg MCHC 33.3 (32.0-36.0) g/dL RDW 14.6 H (11.5-14.5) % Plt Count 311 (150-400) 10^3/uL MPV 9.7 (7.4-10.4) fL Immature Gran % (Auto) 2.1 (0.0-5.0) % Neut % (Auto) 85.0 H (50.0-70.0) % Lymph % (Auto) 5.3 L (20.0-40.0) % [place] % (Auto) 7.4 (2.0-8.0) % Eos % (Auto) 0.1 L (1.0-3.0) % Baso % (Auto) 0.1 (0.0-1.0) % Neut # (Auto) 13.19 H (2.50-7.00) 10^3/uL Lymph # (Auto) 0.82 L (1.00-4.00) 10^3/uL [place] # (Auto) 1.15 H (0.10-0.80) 10^3/uL Eos # (Auto) 0.01 L (0.10-0.30) 10^3/uL Baso # (Auto) 0.01 (0.00-0.10) 10^3/uL Immature Gran # (Auto) 0.32 (0.00-0.50) 10^3/uL ABG pH (7.35-7.45) ABG pCO2 (35-45) mmHG ABG pO2 (80-105) mmHG ABG HCO3 (22-26) mmol/L ABG Total CO2 (23-27) mmol/L ABG O2 Saturation (95-98) % ABG Base Excess (-2-3) mmol/L VBG pH (7.31-7.41) VBG pCO2 (41-51) mmHG VBG pO2 mmHG VBG HCO3 (23-28) mmol/L VBG Total CO2 mmol/L VBG O2 Saturation % VBG Base Excess ((-2)-3) mmol/L O2 Delivery Device Sodium 145 (136-145) mmol/L Potassium 3.3 L (3.5-5.1) mmol/L Chloride 111 H (98-107) mmol/L Carbon Dioxide 21.0 (21.0-32.0) mmol/L Anion Gap 16.3 H (5-15) mmol/L BUN 25 H (7-18) mg/dL Creatinine 0.60 (0.51-1.17) mg/dL Est Cr Clr Drug Dosing 73.20 mL/min Estimated GFR (MDRD) > 60 mL/min Glucose 216 H (70-140) mg/dL POC Glucose 206 H (70-140) mg/dL Lactic Acid (0.4-2.0) mmol/L Calcium 8.2 L (8.7-10.3) mg/dL Phosphorus (2.6-4.7) mg/dL Magnesium (1.8-2.4) mg/dL Total Bilirubin 0.5 (0.2-1.0) mg/dL AST 17 (15-37) U/L ALT 19 (14-63) U/L Alkaline Phosphatase 105 (46-116) U/L Total Protein 5.6 L (6.4-8.2) g/dL Albumin 2.02 L (3.40-5.00) g/dL Amylase < 9 L (25-125) U/L 11/10/20 11/10/20 11/10/20 Range/Units 05:45 06:00 06:04 WBC (5.00-10.00) 10^3/uL RBC (3.80-5.50) 10^6/uL Hgb (12.0-16.0) g/dL Hct (37.0-47.0) % MCV (82.0-92.0) fL MCH (27.0-31.0) pg MCHC (32.0-36.0) g/dL RDW (11.5-14.5) % Plt Count (150-400) 10^3/uL MPV (7.4-10.4) fL Immature Gran % (Auto) (0.0-5.0) % Neut % (Auto) (50.0-70.0) % Lymph % (Auto) (20.0-40.0) % [place] % (Auto) (2.0-8.0) % Eos % (Auto) (1.0-3.0) % Baso % (Auto) (0.0-1.0) % Neut # (Auto) (2.50-7.00) 10^3/uL Lymph # (Auto) (1.00-4.00) 10^3/uL [place] # (Auto) (0.10-0.80) 10^3/uL Eos # (Auto) (0.10-0.30) 10^3/uL Baso # (Auto) (0.00-0.10) 10^3/uL Immature Gran # (Auto) (0.00-0.50) 10^3/uL ABG pH 7.46 H (7.35-7.45) ABG pCO2 25 L (35-45) mmHG ABG pO2 76 L (80-105) mmHG ABG HCO3 18.0 L (22-26) mmol/L ABG Total CO2 19 L (23-27) mmol/L ABG O2 Saturation 96 (95-98) % ABG Base Excess -5 L (-2-3) mmol/L VBG pH (7.31-7.41) VBG pCO2 (41-51) mmHG VBG pO2 mmHG VBG HCO3 (23-28) mmol/L VBG Total CO2 mmol/L VBG O2 Saturation % VBG Base Excess ((-2)-3) mmol/L O2 Delivery Device Room air Sodium (136-145) mmol/L Potassium (3.5-5.1) mmol/L Chloride (98-107) mmol/L Carbon Dioxide (21.0-32.0) mmol/L Anion Gap (5-15) mmol/L BUN (7-18) mg/dL Creatinine (0.51-1.17) mg/dL Est Cr Clr Drug Dosing mL/min Estimated GFR (MDRD) mL/min Glucose (70-140) mg/dL POC Glucose 204 H (70-140) mg/dL Lactic Acid (0.4-2.0) mmol/L Calcium (8.7-10.3) mg/dL Phosphorus 1.0 L* (2.6-4.7) mg/dL Magnesium 1.5 L (1.8-2.4) mg/dL Total Bilirubin (0.2-1.0) mg/dL AST (15-37) U/L ALT (14-63) U/L Alkaline Phosphatase (46-116) U/L Total Protein (6.4-8.2) g/dL Albumin (3.40-5.00) g/dL Amylase (25-125) U/L 11/10/20 11/10/20 Range/Units 07:51 11:35 WBC (5.00-10.00) 10^3/uL RBC (3.80-5.50) 10^6/uL Hgb (12.0-16.0) g/dL Hct (37.0-47.0) % MCV (82.0-92.0) fL MCH (27.0-31.0) pg MCHC (32.0-36.0) g/dL RDW (11.5-14.5) % Plt Count (150-400) 10^3/uL MPV (7.4-10.4) fL Immature Gran % (Auto) (0.0-5.0) % Neut % (Auto) (50.0-70.0) % Lymph % (Auto) (20.0-40.0) % [place] % (Auto) (2.0-8.0) % Eos % (Auto) (1.0-3.0) % Baso % (Auto) (0.0-1.0) % Neut # (Auto) (2.50-7.00) 10^3/uL Lymph # (Auto) (1.00-4.00) 10^3/uL [place] # (Auto) (0.10-0.80) 10^3/uL Eos # (Auto) (0.10-0.30) 10^3/uL Baso # (Auto) (0.00-0.10) 10^3/uL Immature Gran # (Auto) (0.00-0.50) 10^3/uL ABG pH (7.35-7.45) ABG pCO2 (35-45) mmHG ABG pO2 (80-105) mmHG ABG HCO3 (22-26) mmol/L ABG Total CO2 (23-27) mmol/L ABG O2 Saturation (95-98) % ABG Base Excess (-2-3) mmol/L VBG pH (7.31-7.41) VBG pCO2 (41-51) mmHG VBG pO2 mmHG VBG HCO3 (23-28) mmol/L VBG Total CO2 mmol/L VBG O2 Saturation % VBG Base Excess ((-2)-3) mmol/L O2 Delivery Device Sodium (136-145) mmol/L Potassium (3.5-5.1) mmol/L Chloride (98-107) mmol/L Carbon Dioxide (21.0-32.0) mmol/L Anion Gap (5-15) mmol/L BUN (7-18) mg/dL Creatinine (0.51-1.17) mg/dL Est Cr Clr Drug Dosing mL/min Estimated GFR (MDRD) mL/min Glucose (70-140) mg/dL POC Glucose 174 H (70-140) mg/dL Lactic Acid 1.7 (0.4-2.0) mmol/L Calcium (8.7-10.3) mg/dL Phosphorus (2.6-4.7) mg/dL Magnesium (1.8-2.4) mg/dL Total Bilirubin (0.2-1.0) mg/dL AST (15-37) U/L ALT (14-63) U/L Alkaline Phosphatase (46-116) U/L Total Protein (6.4-8.2) g/dL Albumin (3.40-5.00) g/dL Amylase (25-125) U/L Med Orders - Current: Current Medications Dextrose/Water (50% Dextrose In Water 50 Ml Syringe) 50 ml IVPUSH ASDIRECTED PRN PRN Reason: Hypoglycemia Enoxaparin Sodium (Enoxaparin 40 Mg/0.4 Ml Syringe) 40 mg SUBCUT Q24H [facility] Last Admin: 11/09/20 12:28 Dose: 40 mg Documented by: Glucagon (Glucagon,Human Recombinant 1 Mg Vial) 1 mg IM ASDIRECTED PRN PRN Reason: Hypoglycemia Potassium Chloride/Dextrose/Sod Cl (D5 1/2 Ns W/ 40 Meq/L Kcl) 1,000 mls @ 70 mls/hr IV ASDIRECTED [facility] Last Admin: 11/10/20 06:42 Dose: 70 mls/hr Documented by: Sodium Phosphate 45 mmole/ (Sodium Chloride) 265 mls @ 44 mls/hr IV ONETIME ONE Stop: 11/10/20 17:31 Last Admin: 11/10/20 11:47 Dose: 44 mls/hr Documented by: Insulin Aspart (Insulin Aspart 100 Units/Ml 3 Ml Pen) 0 unit SUBCUT Q2H [facility]; Protocol Last Admin: 11/10/20 11:48 Dose: 4 units Documented by: Ondansetron HCl (Ondansetron 4 Mg/2 Ml Sdv) 4 mg IV Q6H PRN PRN Reason: Nausea/Vomiting Last Admin: 11/08/20 16:25 Dose: 4 mg Documented by: Pantoprazole Sodium (Pantoprazole 40 Mg Vial) 40 mg IVPUSH BEDTIME [facility] Last Admin: 11/09/20 22:38 Dose: 40 mg Documented by: Sodium Chloride (Sodium Chloride 0.9% 10 Ml Syringe) 10 ml FLUSH Q8HR PRN PRN Reason: keep vein open Last Admin: 11/09/20 23:47 Dose: 10 ml Documented by: Sodium Phosphate (Phosphorus #1 250 Mg Tab) 750 mg PO QID [facility] Last Admin: 11/10/20 09:48 Dose: Not Given Documented by: Discontinued Medications Aspirin (Aspirin 81 Mg Tab.Ec) 81 mg PO DAILY [facility] Last Admin: 11/08/20 08:14 Dose: 81 mg Documented by: Bisacodyl (Bisacodyl 10 Mg Supp) 10 mg RECTAL ONETIME ONE Stop: 11/10/20 11:51 Last Admin: 11/10/20 11:58 Dose: 10 mg Documented by: Al Hydroxide/Mg Hydroxide 30 (ml/ Lidocaine HCl 15 ml) 0 ml PO ONETIME ONE Stop: 11/09/20 20:36 Last Admin: 11/09/20 22:00 Dose: 45 ml Documented by: Enalapril Maleate (Enalapril 5 Mg Tab) 20 mg PO DAILY SUPRIYA Haloperidol (Haloperidol 0.5 Mg Tab) 0.5 mg PO ONETIME ONE Stop: 11/09/20 19:48 Last Admin: 11/09/20 20:19 Dose: 0.5 mg Documented by: Haloperidol (Haloperidol 0.5 Mg Tab) 1 mg PO ONETIME ONE Stop: 11/09/20 20:36 Last Admin: 11/09/20 22:19 Dose: 1 mg Documented by: Haloperidol Lactate (Haloperidol Lactate 5 Mg/Ml Sdv) 1 mg IM ONETIME ONE Stop: 11/09/20 04:28 Last Admin: 11/09/20 08:00 Dose: Not Given Documented by: Haloperidol Lactate (Haloperidol Lactate 5 Mg/Ml Sdv) 5 mg IM ONETIME ONE Stop: 11/10/20 08:28 Last Admin: 11/10/20 08:49 Dose: 5 mg Documented by: Sodium Chloride (Normal Saline) 1,000 mls @ 999 mls/hr IV .BOLUS ONE Stop: 11/07/20 18:09 Last Admin: 11/07/20 17:20 Dose: 999 mls/hr Documented by: Potassium Chloride/Sodium Chloride (Normal Saline With 40 Meq Kcl) 1,000 mls @ 125 mls/hr IV ASDIRECTED SUPRIYA Last Admin: 11/08/20 05:31 Dose: 125 mls/hr Documented by: Sodium Chloride (Normal Saline) 1,000 mls @ 125 mls/hr IV ASDIRECTED SUPRIYA Last Infusion: 11/08/20 15:13 Dose: 150 mls/hr Documented by: Sodium Chloride (Normal Saline) 1,000 mls @ 999 mls/hr IV .BOLUS ONE Stop: 11/08/20 14:59 Last Admin: 11/08/20 14:34 Dose: 999 mls/hr Documented by: Insulin Regular in 0.9 % NACL (Myxredlin In Ns 100 Unit/100 Ml) 100 unit in 100 mls @ 9.072 mls/hr IV TITRATE SUPRIYA; Protocol Last Admin: 11/08/20 15:52 Dose: 0.1 units/kg/hr, 9.072 mls/hr Documented by: Dextrose/Water (Dextrose 5% In Water) 1,000 mls @ 75 mls/hr IV ASDIRECTED [facility] Last Admin: 11/08/20 19:20 Dose: 75 mls/hr Documented by: Lactated Ringer's (Ringers, Lactated) 1,000 mls @ 75 mls/hr IV ASDIRECTED [facility] Last Admin: 11/09/20 10:39 Dose: 75 mls/hr Documented by: Sodium Chloride (Normal Saline) 500 mls @ 999 mls/hr IV .BOLUS ONE Stop: 11/08/20 20:35 Last Admin: 11/08/20 20:16 Dose: 999 mls/hr Documented by: Potassium Chloride 10 meq/ (Premix) 50 mls @ 50 mls/hr IV ONETIME ONE Stop: 11/08/20 22:11 Last Admin: 11/08/20 21:41 Dose: 50 mls/hr Documented by: Sodium Bicarbonate 50 meq/ (Sodium Chloride) 150 mls @ 150 mls/hr IV ONETIME ONE Stop: 11/08/20 22:29 Last Admin: 11/08/20 21:32 Dose: 150 mls/hr Documented by: Potassium Chloride 20 meq/ (Premix) 100 mls @ 50 mls/hr IV ONETIME ONE Stop: 11/09/20 00:12 Last Admin: 11/08/20 22:48 Dose: 50 mls/hr Documented by: Dextrose/Sodium Chloride (Dextrose 5%-1/2 Ns) 1,000 mls @ 75 mls/hr IV ASDIRECTED [facility] Last Admin: 11/08/20 23:52 Dose: 75 mls/hr Documented by: Sodium Chloride (Normal Saline) 100 mls @ 200 mls/hr IV ASDIRECTED [facility] Last Admin: 11/08/20 17:30 Dose: 200 mls/hr Documented by: Potassium Chloride/Dextrose/Sod Cl (D5 1/2 Ns W/ 40 Meq/L Kcl) 1,000 mls @ 70 mls/hr IV ASDIRECTED [facility] Potassium Chloride 20 meq/ (Premix) 100 mls @ 50 mls/hr IV ONETIME ONE Stop: 11/09/20 13:58 Last Admin: 11/09/20 12:27 Dose: 50 mls/hr Documented by: Potassium Chloride 20 meq/ (Premix) 100 mls @ 50 mls/hr IV ONETIME ONE Stop: 11/09/20 16:59 Last Admin: 11/09/20 14:36 Dose: 50 mls/hr Documented by: Insulin Aspart (Insulin Aspart 100 Units/Ml 3 Ml Pen) 0 unit SUBCUT WITHMEALSANDBED [facility]; Protocol Last Admin: 11/08/20 12:19 Dose: 3 units Documented by: Insulin Glargine (Insulin Glargine,Hum.Rec.Anlog 100 Unit/Ml 3 Ml Pen) 15 unit SUBCUT DAILY [facility] Insulin Glargine (Insulin Glargine,Hum.Rec.Anlog 100 Unit/Ml 3 Ml Pen) 5 unit SUBCUT DAILY [facility] Last Admin: 11/08/20 08:16 Dose: 5 units Documented by: Insulin Glargine (Insulin Glargine,Hum.Rec.Anlog 100 Unit/Ml 3 Ml Pen) 10 unit SUBCUT ONETIME ONE Stop: 11/09/20 11:01 Insulin Glargine (Insulin Glargine,Hum.Rec.Anlog 100 Unit/Ml 3 Ml Pen) 10 unit SUBCUT ONETIME ONE Stop: 11/08/20 11:01 Last Admin: 11/08/20 12:00 Dose: 10 units Documented by: Iopamidol (Iopamidol 755 Mg/Ml 75 Ml Bottle) 75 ml IVPUSH ONETIME ONE Stop: 11/08/20 17:08 Last Admin: 11/08/20 22:55 Dose: 75 ml Documented by: Lorazepam (Lorazepam 2 Mg/Ml Sdv) 0.25 mg IVPUSH ONETIME ONE Stop: 11/08/20 22:43 Last Admin: 11/08/20 23:38 Dose: 0.25 mg Documented by: Lorazepam (Lorazepam 2 Mg/Ml Sdv) 0.25 mg IVPUSH ONETIME ONE Stop: 11/09/20 02:10 Last Admin: 11/09/20 02:30 Dose: 0.25 mg Documented by: Lorazepam (Lorazepam 2 Mg/Ml Sdv) 0.5 mg IVPUSH ONETIME ONE Stop: 11/09/20 23:21 Last Admin: 11/09/20 23:40 Dose: 0.5 mg Documented by: Lorazepam (Lorazepam 2 Mg/Ml Sdv) 0.5 mg IVPUSH ONETIME ONE Stop: 11/10/20 01:54 Last Admin: 11/10/20 02:17 Dose: 0.5 mg Documented by: Lorazepam (Lorazepam 2 Mg/Ml Sdv) 0.5 mg IVPUSH ONETIME ONE Stop: 11/10/20 05:23 Last Admin: 11/10/20 05:41 Dose: 0.5 mg Documented by: Melatonin (Melatonin 3 Mg Tab) 3 mg PO BEDTIME PRN PRN Reason: Insomnia Last Admin: 11/07/20 23:00 Dose: 3 mg Documented by: Metoclopramide HCl (Metoclopramide 10 Mg/2 Ml Sdv) 10 mg IVPUSH ONETIME ONE Stop: 11/07/20 18:37 Last Admin: 11/07/20 18:40 Dose: 10 mg Documented by: Metoclopramide HCl (Metoclopramide 10 Mg/2 Ml Sdv) 5 mg IVPUSH Q6H SUPRIYA Last Admin: 11/09/20 18:23 Dose: 5 mg Documented by: Morphine Sulfate (Morphine 2 Mg/Ml Syringe) 2 mg IVPUSH ONETIME ONE Stop: 11/10/20 11:53 Last Admin: 11/10/20 11:58 Dose: 2 mg Documented by: Non-Formulary Medication (Non-Formulary Medication 1 Each) 5 each SUBCUT DAILY [facility] Ondansetron HCl (Ondansetron 4 Mg/2 Ml Sdv) 4 mg IVPUSH ONETIME ONE Stop: 11/07/20 17:10 Last Admin: 11/07/20 17:29 Dose: 4 mg Documented by: Ondansetron HCl (Ondansetron 4 Mg Tab.Dis) 4 mg PO Q6HR PRN PRN Reason: Nausea Last Admin: 11/08/20 04:57 Dose: 4 mg Documented by: Ondansetron HCl (Ondansetron 4 Mg/2 Ml Sdv) 4 mg IVPUSH ONETIME ONE Stop: 11/08/20 19:45 Last Admin: 11/08/20 19:54 Dose: 4 mg Documented by: Sertraline HCl (Sertraline 50 Mg Tab) 50 mg PO 1700 SUPRIYA Last Admin: 11/08/20 16:27 Dose: 50 mg Documented by: Simvastatin (Simvastatin 20 Mg Tab) 40 mg PO DAILY [facility] Sodium Phosphate (Phosphorus #1 250 Mg Tab) 500 mg PO ONETIME ONE Stop: 11/08/20 23:10 Last Admin: 11/08/20 23:35 Dose: 500 mg Documented by: Sodium Phosphate (Phosphorus #1 250 Mg Tab) 500 mg PO ONETIME ONE Stop: 11/08/20 05:01 Last Admin: 11/08/20 23:16 Dose: Not Given Documented by: Sodium Phosphate (Phosphorus #1 250 Mg Tab) 500 mg PO ONETIME ONE Stop: 11/09/20 05:01 Last Admin: 11/09/20 05:12 Dose: 500 mg Documented by: Sodium Phosphate (Phosphorus #1 250 Mg Tab) 500 mg PO ONETIME ONE Stop: 11/09/20 17:01 Last Admin: 11/09/20 16:08 Dose: 500 mg Documented by: Sodium Phosphate (Phosphorus #1 250 Mg Tab) 500 mg PO ONETIME ONE Stop: 11/09/20 21:01 Last Admin: 11/09/20 20:19 Dose: 500 mg Documented by: - Exam Quality Assessment: No: Supplemental Oxygen Urinary Catheter Total Time: 1Days 0Hours General: Mild Distress. No: Alert, Oriented, Cooperative Lungs: Clear to Auscultation, Normal Respiratory Effort Cardiovascular: Tachycardia GI/Abdominal Exam: Soft, No Distention, Tender, Other (faint, low pitched bowel tone all quads. No stool in rectal vault per RIAN). No: Distended, Guarding, Rigid, Rebound Peripheral Pulses: 2+: Radial (L), Radial (R) Skin: Cool Neurological: Normal Tone Psy/Mental Status: Agitated, Other (answer questions with short answers, yes/no etc. ) - Patient Data Lab Results Last 24 hrs: Laboratory Results - last 24 hr 11/09/20 11/09/20 11/09/20 Range/Units 04:02 05:59 08:17 WBC (5.00-10.00) 10^3/uL RBC (3.80-5.50) 10^6/uL Hgb (12.0-16.0) g/dL Hct (37.0-47.0) % MCV (82.0-92.0) fL MCH (27.0-31.0) pg MCHC (32.0-36.0) g/dL RDW (11.5-14.5) % Plt Count (150-400) 10^3/uL MPV (7.4-10.4) fL Immature Gran % (Auto) (0.0-5.0) % Neut % (Auto) (50.0-70.0) % Lymph % (Auto) (20.0-40.0) % [place] % (Auto) (2.0-8.0) % Eos % (Auto) (1.0-3.0) % Baso % (Auto) (0.0-1.0) % Neut # (Auto) (2.50-7.00) 10^3/uL Lymph # (Auto) (1.00-4.00) 10^3/uL [place] # (Auto) (0.10-0.80) 10^3/uL Eos # (Auto) (0.10-0.30) 10^3/uL Baso # (Auto) (0.00-0.10) 10^3/uL Immature Gran # (Auto) (0.00-0.50) 10^3/uL ABG pH (7.35-7.45) ABG pCO2 (35-45) mmHG ABG pO2 (80-105) mmHG ABG HCO3 (22-26) mmol/L ABG Total CO2 (23-27) mmol/L ABG O2 Saturation (95-98) % ABG Base Excess (-2-3) mmol/L VBG pH (7.31-7.41) VBG pCO2 (41-51) mmHG VBG pO2 mmHG VBG HCO3 (23-28) mmol/L VBG Total CO2 mmol/L VBG O2 Saturation % VBG Base Excess ((-2)-3) mmol/L O2 Delivery Device Sodium (136-145) mmol/L Potassium (3.5-5.1) mmol/L Chloride (98-107) mmol/L Carbon Dioxide (21.0-32.0) mmol/L Anion Gap (5-15) mmol/L BUN (7-18) mg/dL Creatinine (0.51-1.17) mg/dL Est Cr Clr Drug Dosing mL/min Estimated GFR (MDRD) mL/min Glucose (70-140) mg/dL POC Glucose 217 H 187 H 157 H (70-140) mg/dL Lactic Acid (0.4-2.0) mmol/L Calcium (8.7-10.3) mg/dL Phosphorus (2.6-4.7) mg/dL Magnesium (1.8-2.4) mg/dL Total Bilirubin (0.2-1.0) mg/dL AST (15-37) U/L ALT (14-63) U/L Alkaline Phosphatase (46-116) U/L Total Protein (6.4-8.2) g/dL Albumin (3.40-5.00) g/dL Amylase (25-125) U/L 11/09/20 11/09/20 11/09/20 Range/Units 10:32 12:21 14:08 WBC (5.00-10.00) 10^3/uL RBC (3.80-5.50) 10^6/uL Hgb (12.0-16.0) g/dL Hct (37.0-47.0) % MCV (82.0-92.0) fL MCH (27.0-31.0) pg MCHC (32.0-36.0) g/dL RDW (11.5-14.5) % Plt Count (150-400) 10^3/uL MPV (7.4-10.4) fL Immature Gran % (Auto) (0.0-5.0) % Neut % (Auto) (50.0-70.0) % Lymph % (Auto) (20.0-40.0) % [place] % (Auto) (2.0-8.0) % Eos % (Auto) (1.0-3.0) % Baso % (Auto) (0.0-1.0) % Neut # (Auto) (2.50-7.00) 10^3/uL Lymph # (Auto) (1.00-4.00) 10^3/uL [place] # (Auto) (0.10-0.80) 10^3/uL Eos # (Auto) (0.10-0.30) 10^3/uL Baso # (Auto) (0.00-0.10) 10^3/uL Immature Gran # (Auto) (0.00-0.50) 10^3/uL ABG pH (7.35-7.45) ABG pCO2 (35-45) mmHG ABG pO2 (80-105) mmHG ABG HCO3 (22-26) mmol/L ABG Total CO2 (23-27) mmol/L ABG O2 Saturation (95-98) % ABG Base Excess (-2-3) mmol/L VBG pH (7.31-7.41) VBG pCO2 (41-51) mmHG VBG pO2 mmHG VBG HCO3 (23-28) mmol/L VBG Total CO2 mmol/L VBG O2 Saturation % VBG Base Excess ((-2)-3) mmol/L O2 Delivery Device Sodium (136-145) mmol/L Potassium (3.5-5.1) mmol/L Chloride (98-107) mmol/L Carbon Dioxide (21.0-32.0) mmol/L Anion Gap (5-15) mmol/L BUN (7-18) mg/dL Creatinine (0.51-1.17) mg/dL Est Cr Clr Drug Dosing mL/min Estimated GFR (MDRD) mL/min Glucose (70-140) mg/dL POC Glucose 203 H 265 H 241 H (70-140) mg/dL Lactic Acid (0.4-2.0) mmol/L Calcium (8.7-10.3) mg/dL Phosphorus (2.6-4.7) mg/dL Magnesium (1.8-2.4) mg/dL Total Bilirubin (0.2-1.0) mg/dL AST (15-37) U/L ALT (14-63) U/L Alkaline Phosphatase (46-116) U/L Total Protein (6.4-8.2) g/dL Albumin (3.40-5.00) g/dL Amylase (25-125) U/L 11/09/20 11/09/20 11/09/20 Range/Units 15:15 15:15 16:03 WBC (5.00-10.00) 10^3/uL RBC (3.80-5.50) 10^6/uL Hgb (12.0-16.0) g/dL Hct (37.0-47.0) % MCV (82.0-92.0) fL MCH (27.0-31.0) pg MCHC (32.0-36.0) g/dL RDW (11.5-14.5) % Plt Count (150-400) 10^3/uL MPV (7.4-10.4) fL Immature Gran % (Auto) (0.0-5.0) % Neut % (Auto) (50.0-70.0) % Lymph % (Auto) (20.0-40.0) % [place] % (Auto) (2.0-8.0) % Eos % (Auto) (1.0-3.0) % Baso % (Auto) (0.0-1.0) % Neut # (Auto) (2.50-7.00) 10^3/uL Lymph # (Auto) (1.00-4.00) 10^3/uL [place] # (Auto) (0.10-0.80) 10^3/uL Eos # (Auto) (0.10-0.30) 10^3/uL Baso # (Auto) (0.00-0.10) 10^3/uL Immature Gran # (Auto) (0.00-0.50) 10^3/uL ABG pH (7.35-7.45) ABG pCO2 (35-45) mmHG ABG pO2 (80-105) mmHG ABG HCO3 (22-26) mmol/L ABG Total CO2 (23-27) mmol/L ABG O2 Saturation (95-98) % ABG Base Excess (-2-3) mmol/L VBG pH (7.31-7.41) VBG pCO2 (41-51) mmHG VBG pO2 mmHG VBG HCO3 (23-28) mmol/L VBG Total CO2 mmol/L VBG O2 Saturation % VBG Base Excess ((-2)-3) mmol/L O2 Delivery Device Sodium 142 (136-145) mmol/L Potassium 3.5 (3.5-5.1) mmol/L Chloride 109 H (98-107) mmol/L Carbon Dioxide 14.3 L (21.0-32.0) mmol/L Anion Gap 22.2 H (5-15) mmol/L BUN 26 H (7-18) mg/dL Creatinine 0.64 (0.51-1.17) mg/dL Est Cr Clr Drug Dosing 68.63 mL/min Estimated GFR (MDRD) > 60 mL/min Glucose 242 H (70-140) mg/dL POC Glucose 212 H (70-140) mg/dL Lactic Acid (0.4-2.0) mmol/L Calcium 8.5 L (8.7-10.3) mg/dL Phosphorus (2.6-4.7) mg/dL Magnesium 1.5 L (1.8-2.4) mg/dL Total Bilirubin (0.2-1.0) mg/dL AST (15-37) U/L ALT (14-63) U/L Alkaline Phosphatase (46-116) U/L Total Protein (6.4-8.2) g/dL Albumin (3.40-5.00) g/dL Amylase (25-125) U/L 11/09/20 11/09/20 11/09/20 Range/Units 18:19 20:15 21:00 WBC (5.00-10.00) 10^3/uL RBC (3.80-5.50) 10^6/uL Hgb (12.0-16.0) g/dL Hct (37.0-47.0) % MCV (82.0-92.0) fL MCH (27.0-31.0) pg MCHC (32.0-36.0) g/dL RDW (11.5-14.5) % Plt Count (150-400) 10^3/uL MPV (7.4-10.4) fL Immature Gran % (Auto) (0.0-5.0) % Neut % (Auto) (50.0-70.0) % Lymph % (Auto) (20.0-40.0) % [place] % (Auto) (2.0-8.0) % Eos % (Auto) (1.0-3.0) % Baso % (Auto) (0.0-1.0) % Neut # (Auto) (2.50-7.00) 10^3/uL Lymph # (Auto) (1.00-4.00) 10^3/uL [place] # (Auto) (0.10-0.80) 10^3/uL Eos # (Auto) (0.10-0.30) 10^3/uL Baso # (Auto) (0.00-0.10) 10^3/uL Immature Gran # (Auto) (0.00-0.50) 10^3/uL ABG pH (7.35-7.45) ABG pCO2 (35-45) mmHG ABG pO2 (80-105) mmHG ABG HCO3 (22-26) mmol/L ABG Total CO2 (23-27) mmol/L ABG O2 Saturation (95-98) % ABG Base Excess (-2-3) mmol/L VBG pH 7.33 (7.31-7.41) VBG pCO2 32 L (41-51) mmHG VBG pO2 35 mmHG VBG HCO3 17 L (23-28) mmol/L VBG Total CO2 18 mmol/L VBG O2 Saturation 64 % VBG Base Excess -8 L ((-2)-3) mmol/L O2 Delivery Device Room air Sodium (136-145) mmol/L Potassium (3.5-5.1) mmol/L Chloride (98-107) mmol/L Carbon Dioxide (21.0-32.0) mmol/L Anion Gap (5-15) mmol/L BUN (7-18) mg/dL Creatinine (0.51-1.17) mg/dL Est Cr Clr Drug Dosing mL/min Estimated GFR (MDRD) mL/min Glucose (70-140) mg/dL POC Glucose 210 H 195 H (70-140) mg/dL Lactic Acid (0.4-2.0) mmol/L Calcium (8.7-10.3) mg/dL Phosphorus (2.6-4.7) mg/dL Magnesium (1.8-2.4) mg/dL Total Bilirubin (0.2-1.0) mg/dL AST (15-37) U/L ALT (14-63) U/L Alkaline Phosphatase (46-116) U/L Total Protein (6.4-8.2) g/dL Albumin (3.40-5.00) g/dL Amylase (25-125) U/L 11/09/20 11/10/20 11/10/20 Range/Units 22:24 00:00 02:14 WBC (5.00-10.00) 10^3/uL RBC (3.80-5.50) 10^6/uL Hgb (12.0-16.0) g/dL Hct (37.0-47.0) % MCV (82.0-92.0) fL MCH (27.0-31.0) pg MCHC (32.0-36.0) g/dL RDW (11.5-14.5) % Plt Count (150-400) 10^3/uL MPV (7.4-10.4) fL Immature Gran % (Auto) (0.0-5.0) % Neut % (Auto) (50.0-70.0) % Lymph % (Auto) (20.0-40.0) % [place] % (Auto) (2.0-8.0) % Eos % (Auto) (1.0-3.0) % Baso % (Auto) (0.0-1.0) % Neut # (Auto) (2.50-7.00) 10^3/uL Lymph # (Auto) (1.00-4.00) 10^3/uL [place] # (Auto) (0.10-0.80) 10^3/uL Eos # (Auto) (0.10-0.30) 10^3/uL Baso # (Auto) (0.00-0.10) 10^3/uL Immature Gran # (Auto) (0.00-0.50) 10^3/uL ABG pH (7.35-7.45) ABG pCO2 (35-45) mmHG ABG pO2 (80-105) mmHG ABG HCO3 (22-26) mmol/L ABG Total CO2 (23-27) mmol/L ABG O2 Saturation (95-98) % ABG Base Excess (-2-3) mmol/L VBG pH (7.31-7.41) VBG pCO2 (41-51) mmHG VBG pO2 mmHG VBG HCO3 (23-28) mmol/L VBG Total CO2 mmol/L VBG O2 Saturation % VBG Base Excess ((-2)-3) mmol/L O2 Delivery Device Sodium (136-145) mmol/L Potassium (3.5-5.1) mmol/L Chloride (98-107) mmol/L Carbon Dioxide (21.0-32.0) mmol/L Anion Gap (5-15) mmol/L BUN (7-18) mg/dL Creatinine (0.51-1.17) mg/dL Est Cr Clr Drug Dosing mL/min Estimated GFR (MDRD) mL/min Glucose (70-140) mg/dL POC Glucose 179 H 166 H 143 H (70-140) mg/dL Lactic Acid (0.4-2.0) mmol/L Calcium (8.7-10.3) mg/dL Phosphorus (2.6-4.7) mg/dL Magnesium (1.8-2.4) mg/dL Total Bilirubin (0.2-1.0) mg/dL AST (15-37) U/L ALT (14-63) U/L Alkaline Phosphatase (46-116) U/L Total Protein (6.4-8.2) g/dL Albumin (3.40-5.00) g/dL Amylase (25-125) U/L 11/10/20 11/10/20 11/10/20 Range/Units 04:37 05:45 05:45 WBC 15.50 H (5.00-10.00) 10^3/uL RBC 4.36 (3.80-5.50) 10^6/uL Hgb 11.2 L (12.0-16.0) g/dL Hct 33.6 L (37.0-47.0) % MCV 77.1 L (82.0-92.0) fL MCH 25.7 L (27.0-31.0) pg MCHC 33.3 (32.0-36.0) g/dL RDW 14.6 H (11.5-14.5) % Plt Count 311 (150-400) 10^3/uL MPV 9.7 (7.4-10.4) fL Immature Gran % (Auto) 2.1 (0.0-5.0) % Neut % (Auto) 85.0 H (50.0-70.0) % Lymph % (Auto) 5.3 L (20.0-40.0) % [place] % (Auto) 7.4 (2.0-8.0) % Eos % (Auto) 0.1 L (1.0-3.0) % Baso % (Auto) 0.1 (0.0-1.0) % Neut # (Auto) 13.19 H (2.50-7.00) 10^3/uL Lymph # (Auto) 0.82 L (1.00-4.00) 10^3/uL [place] # (Auto) 1.15 H (0.10-0.80) 10^3/uL Eos # (Auto) 0.01 L (0.10-0.30) 10^3/uL Baso # (Auto) 0.01 (0.00-0.10) 10^3/uL Immature Gran # (Auto) 0.32 (0.00-0.50) 10^3/uL ABG pH (7.35-7.45) ABG pCO2 (35-45) mmHG ABG pO2 (80-105) mmHG ABG HCO3 (22-26) mmol/L ABG Total CO2 (23-27) mmol/L ABG O2 Saturation (95-98) % ABG Base Excess (-2-3) mmol/L VBG pH (7.31-7.41) VBG pCO2 (41-51) mmHG VBG pO2 mmHG VBG HCO3 (23-28) mmol/L VBG Total CO2 mmol/L VBG O2 Saturation % VBG Base Excess ((-2)-3) mmol/L O2 Delivery Device Sodium 145 (136-145) mmol/L Potassium 3.3 L (3.5-5.1) mmol/L Chloride 111 H (98-107) mmol/L Carbon Dioxide 21.0 (21.0-32.0) mmol/L Anion Gap 16.3 H (5-15) mmol/L BUN 25 H (7-18) mg/dL Creatinine 0.60 (0.51-1.17) mg/dL Est Cr Clr Drug Dosing 73.20 mL/min Estimated GFR (MDRD) > 60 mL/min Glucose 216 H (70-140) mg/dL POC Glucose 206 H (70-140) mg/dL Lactic Acid (0.4-2.0) mmol/L Calcium 8.2 L (8.7-10.3) mg/dL Phosphorus (2.6-4.7) mg/dL Magnesium (1.8-2.4) mg/dL Total Bilirubin 0.5 (0.2-1.0) mg/dL AST 17 (15-37) U/L ALT 19 (14-63) U/L Alkaline Phosphatase 105 (46-116) U/L Total Protein 5.6 L (6.4-8.2) g/dL Albumin 2.02 L (3.40-5.00) g/dL Amylase < 9 L (25-125) U/L 11/10/20 11/10/20 11/10/20 Range/Units 05:45 06:00 06:04 WBC (5.00-10.00) 10^3/uL RBC (3.80-5.50) 10^6/uL Hgb (12.0-16.0) g/dL Hct (37.0-47.0) % MCV (82.0-92.0) fL MCH (27.0-31.0) pg MCHC (32.0-36.0) g/dL RDW (11.5-14.5) % Plt Count (150-400) 10^3/uL MPV (7.4-10.4) fL Immature Gran % (Auto) (0.0-5.0) % Neut % (Auto) (50.0-70.0) % Lymph % (Auto) (20.0-40.0) % [place] % (Auto) (2.0-8.0) % Eos % (Auto) (1.0-3.0) % Baso % (Auto) (0.0-1.0) % Neut # (Auto) (2.50-7.00) 10^3/uL Lymph # (Auto) (1.00-4.00) 10^3/uL [place] # (Auto) (0.10-0.80) 10^3/uL Eos # (Auto) (0.10-0.30) 10^3/uL Baso # (Auto) (0.00-0.10) 10^3/uL Immature Gran # (Auto) (0.00-0.50) 10^3/uL ABG pH 7.46 H (7.35-7.45) ABG pCO2 25 L (35-45) mmHG ABG pO2 76 L (80-105) mmHG ABG HCO3 18.0 L (22-26) mmol/L ABG Total CO2 19 L (23-27) mmol/L ABG O2 Saturation 96 (95-98) % ABG Base Excess -5 L (-2-3) mmol/L VBG pH (7.31-7.41) VBG pCO2 (41-51) mmHG VBG pO2 mmHG VBG HCO3 (23-28) mmol/L VBG Total CO2 mmol/L VBG O2 Saturation % VBG Base Excess ((-2)-3) mmol/L O2 Delivery Device Room air Sodium (136-145) mmol/L Potassium (3.5-5.1) mmol/L Chloride (98-107) mmol/L Carbon Dioxide (21.0-32.0) mmol/L Anion Gap (5-15) mmol/L BUN (7-18) mg/dL Creatinine (0.51-1.17) mg/dL Est Cr Clr Drug Dosing mL/min Estimated GFR (MDRD) mL/min Glucose (70-140) mg/dL POC Glucose 204 H (70-140) mg/dL Lactic Acid (0.4-2.0) mmol/L Calcium (8.7-10.3) mg/dL Phosphorus 1.0 L* (2.6-4.7) mg/dL Magnesium 1.5 L (1.8-2.4) mg/dL Total Bilirubin (0.2-1.0) mg/dL AST (15-37) U/L ALT (14-63) U/L Alkaline Phosphatase (46-116) U/L Total Protein (6.4-8.2) g/dL Albumin (3.40-5.00) g/dL Amylase (25-125) U/L 11/10/20 11/10/20 Range/Units 07:51 11:35 WBC (5.00-10.00) 10^3/uL RBC (3.80-5.50) 10^6/uL Hgb (12.0-16.0) g/dL Hct (37.0-47.0) % MCV (82.0-92.0) fL MCH (27.0-31.0) pg MCHC (32.0-36.0) g/dL RDW (11.5-14.5) % Plt Count (150-400) 10^3/uL MPV (7.4-10.4) fL Immature Gran % (Auto) (0.0-5.0) % Neut % (Auto) (50.0-70.0) % Lymph % (Auto) (20.0-40.0) % [place] % (Auto) (2.0-8.0) % Eos % (Auto) (1.0-3.0) % Baso % (Auto) (0.0-1.0) % Neut # (Auto) (2.50-7.00) 10^3/uL Lymph # (Auto) (1.00-4.00) 10^3/uL [place] # (Auto) (0.10-0.80) 10^3/uL Eos # (Auto) (0.10-0.30) 10^3/uL Baso # (Auto) (0.00-0.10) 10^3/uL Immature Gran # (Auto) (0.00-0.50) 10^3/uL ABG pH (7.35-7.45) ABG pCO2 (35-45) mmHG ABG pO2 (80-105) mmHG ABG HCO3 (22-26) mmol/L ABG Total CO2 (23-27) mmol/L ABG O2 Saturation (95-98) % ABG Base Excess (-2-3) mmol/L VBG pH (7.31-7.41) VBG pCO2 (41-51) mmHG VBG pO2 mmHG VBG HCO3 (23-28) mmol/L VBG Total CO2 mmol/L VBG O2 Saturation % VBG Base Excess ((-2)-3) mmol/L O2 Delivery Device Sodium (136-145) mmol/L Potassium (3.5-5.1) mmol/L Chloride (98-107) mmol/L Carbon Dioxide (21.0-32.0) mmol/L Anion Gap (5-15) mmol/L BUN (7-18) mg/dL Creatinine (0.51-1.17) mg/dL Est Cr Clr Drug Dosing mL/min Estimated GFR (MDRD) mL/min Glucose (70-140) mg/dL POC Glucose 174 H (70-140) mg/dL Lactic Acid 1.7 (0.4-2.0) mmol/L Calcium (8.7-10.3) mg/dL Phosphorus (2.6-4.7) mg/dL Magnesium (1.8-2.4) mg/dL Total Bilirubin (0.2-1.0) mg/dL AST (15-37) U/L ALT (14-63) U/L Alkaline Phosphatase (46-116) U/L Total Protein (6.4-8.2) g/dL Albumin (3.40-5.00) g/dL Amylase (25-125) U/L Result Diagrams: 11/10/20 05:45 11/10/20 05:45 Sepsis Event Note - Evaluation Sepsis Screening Result: Possible Sepsis Risk - Focused Exam Vital Signs: Vital Signs Temp Pulse Resp BP BP Pulse Ox 11/10/20 10:44 96.7 F L 136 H 28 H 158/88 H 97 11/10/20 06:45 97.1 F 116 H 20 160/89 H 97 11/10/20 04:30 97.1 F 121 H 22 H 172/82 H 100 - Problem List Review Problem List Initiated/Reviewed/Updated: Yes - My Orders Last 24 Hours: My Active Orders 11/09/20 11:15 Insert Murray Catheter [Insert Urinary Catheter] [OM.PC] Q24H 11/09/20 17:00 D5 1/2 NS w/ 40 mEq/L KCl 1,000 ml IV ASDIRECTED 11/10/20 04:00 Communication Order [RC] ROUTINE - Plan Plan:: HPI summary: Jannet is a 70yF who was tested for COVID at the [facility] on Friday11/06/20, the result of which was positive. Arrangements were made for her to receive IV fluids and REGEN-COV at [facility] Friday am. Patient tolerated this well. She then called [facility] on Friday reporting diarrhea and was advised to try immodium. Patient subsequently presented to the [facility] ER by last evening due to nausea, dizziness, weakness symptoms related to COVID. ED course: Afebrile, normotensive in ER. Tachycardia noted. Oxygenation stable on room air. CXR negative. Na 136, K 3.3, BUN 44, Creatinine 0.98. Glucose 256, Alk phos 117, Albumin 2.79, Anion gap 30.9, Urine ketones > 160. She was admitted to observation status for IV fluids which initially was ordered as NS + 40 mEq KCl @ 125ml/hr due to mild hypokalemia per Dr Valdez. Patient restarted on her home medications upon admission including her lantus, however this was ordered at 5 units daily, home dose is 45 units daily in addition to low dose novolog ssi. Hospital course: 11/08/20: Patient rather nauseated upon rounds this morning, she is feeling quite ill. Tachycardia persists, will start cardiac monitoring. Patient quite ill appearing and pale. Lung sounds clear, HR tachy and regular. Bowel sounds present, abdomen soft, NT. Additional 10 units of lantus to be given in addition to 5 given this morning due to blood glucose of 315. No morning labs were ordered, will order complete recommended admission panel per [facility] guidelines incluidng CBC, CK, CRP, LDH, procal, PT/INR, PTT, lactic acid, Mg and will obtain ABG's due to concern for acidosis given initial results in ER. Will hold off on d-dimer as patient denies SOB and is on room air. Consider adding this if indicated based on clinical course. --CTA prior to NG tube decompression demonstrates no signs of PE however abdominal stomach distention ?SBO with fluid in the thoracic esophagus, follow- up abdominal CT abdomen pelvis demonstrates distended loops of small bowel, no transition point, markedly dilated stomach--all prior to NGT --Chest x-ray for NG placement demonstrates proper NG placement --Hydroxybutyrate result elevated at 8.89 11/09/2020, overnight, visual hallucinations--Ativan given, NG tube placed, immediate 600 out, 1000 cc overnight shift however appears to be slowing down--light brown, verify placement, indwelling Murray catheter laced after bladder scan showed ~800 mL, with 800 immediate return, past 24 hours, Intake 4800, output 2100 past 24 hours however 800 cc this a.m. during rounds. Favorab le BP/MAP, improving ABGs--pH now improved to 7.37, CO2 22, PO2 39, anion gap remains elevated at 22.4 however trending positively, overall fluids status close to euvolemic, ongoing tachycardia, No fevers, RR 24-30, SaO2 93-97%, RA. Unfavorable inflammatory marker indices with platelet thrombocytosis likely reactive, however no bandemia. Insulin drip discontinued at ~2300 last night at glucose of 102, changed to SS q2h, potassium trending down low as one would expect given insulin gtt. fluids of D5 one half normal saline along with LR ongoing this morning during rounds. Sodium bicarb 50 mEq given last night along with 20 MEQ of KCl 11/10/2020, multiple calls to overnight provider by nurses, agitation, tachycardia this morning, abdominal pain however no abdominal distention, unable to elicit if patient is passing flatus, digital rectal exam this morning no stool in vault, inserted suppository. 2 mg morphine given due to pain, NG tube clamped between 4 AM to 8 AM with ~200NT output. White count slightly improved, normal lactic acid, procalcitonin slightly elevated at 0.23, ABGs trending favorably, lungs are clear, no fever, skin is cool, hypertension however likely due to not taken p.o. blood pressure medicines, acute agitation component, PPI started, No stool in rectal vault per [facility] Hospitalization problems and plan: --Metabolic/Ketoacidosis--Hydroxybutyrate result elevated at 8.89, improving, GI fluid loss likely etiology --Covid ileus vs SBO, suppository, NG tube for decompression --Gastroenteritis, resolved. 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, skilled nursing insulin use - on metformin XL 500mg PO daily, novolog sliding scale QID, lantus 45u daily, asa 325mg PO daily # Iron deficiency - on ferrous sulfate 325mg PO daily # Low back pain with sciatica - takes ibuprofen 400mg PO daily at home # Pap smear with atypical squamous cells of undetermined significance (ACS-US) Hospitalization details: # PPX: lovenox 40mg sc # Code status: FULL CODE # Emergency contact: Jorge Disposition/overall plan --Patient meets qualification for INPT status, cardiac monitoring --LR at 125 cc/h, continue with D5 and half with 40 potassium at current rate of 70 --Replace potassium, current fluids/supplements along with LR--will give her 168 mEq in 24 hours, will adjust based off NG output --Morphine for pain, Haldol for acute agitation --Metoprolol tartrate IVP --HOB up 30 degrees K+ Consultations, [facility] on-call surgeon recommended continuing ongoing treatment with NG tube. Angie in length with patient spouse Jorge, he wishes her to continue to be full code and do everything we can. I explained to him how she is doing, small bowel obstruction and how surgeons feel likely Covid related however ongoing NG tube in hopes for it improve however it may take quite some time
[2020-11-10] MEDS ORDERED: Potassium Chloride 20 MEQ in Premix Bag 1 BAG IV ONE ×3 (12:45→20:00)
[2020-11-10] MEDS ORDERED: Lactated Ringers 1,000 ML IV SCH (12:45)
[2020-11-10] MEDS ORDERED: Haloperidol Lactate 5 MG/ML SDV IM PRN (13:56)
[2020-11-10] MEDS: Enoxaparin 40 MG/0.4 ML Syringe SUBCUT SCH (14:12)
[2020-11-10] MEDS: Morphine 2 MG/ML SYRINGE IVPUSH PRN ×3 (14:35→22:51)
[2020-11-10] MEDS ORDERED: Metoprolol Tartrate 5 MG/5 ML SDV IVPUSH PRN (18:19)
[2020-11-10] MEDS ORDERED: cefTRIAXone 1 GM Vial IVPUSH SCH (18:30)
[2020-11-10 18:55] LABS: ANION GAP 15.7 mmol/L (5-15); CHLORIDE,CL 114 mmol/L (98-107); SODIUM,NA 144 mmol/L (136-145)
--- NOTE | 2020-11-10 20:10 | PCM.SN.2 ---
- Free Text/Narrative Note: 1. Repeat phosphorus this evening normal at 3.0, will repeat again in am. 2. Tachycardia increased to 130s - started metoprolol 5mg IV Q6H PRN for HR > 120. 3. Empiric antibiotics of Rocephin 1g started tonight for leukocytosis with neutrophilia (WBC 15.50, 85% neutrophils) 4. Repeat K this evening increased to 6.4; stopped all K infusions - will check at 2300 this evening Time Documentation
[2020-11-10] MEDS: Pantoprazole 40 MG Vial IVPUSH SCH (20:15)
[2020-11-10] MEDS ORDERED: Iopamidol 755 Mg/ML 75 ML Bottle IVPUSH ONE (21:59)
[2020-11-10] MEDS ORDERED: Sodium Chloride 0.9% 1,000 ML IV SCH (22:00)
[2020-11-10] MEDS ORDERED: Sodium Chloride 0.9% 50 ML IV SCH (22:00)
--- NOTE | 2020-11-10 22:06 | PCM.PN ---
- General Info Date of Service: 11/10/20 Subjective Update: Patient rather obtunded, unable to obtain ROS - Functional Status: Reports: Urinating. Denies: Pain Controlled, Tolerating Diet - Patient Data Vitals - Most Recent: Last Vital Signs Temp 99.0 F 11/10/20 20:00 Pulse 124 H 11/10/20 20:00 Resp 32 H 11/10/20 20:00 BP 168/63 H 11/10/20 20:00 Pulse Ox 96 11/10/20 20:00 Weight - Most Recent: 200 lb I&O - Last 24 Hours: Intake & Output 11/10/20 11/10/20 11/10/20 06:59 14:59 22:59 Intake Total 848 1660 Output Total 250 600 Balance 598 -600 1660 Lab Results Last 24 Hours: Laboratory Results - last 24 hr 11/09/20 11/09/20 11/09/20 Range/Units 14:08 16:03 18:19 WBC (5.00-10.00) 10^3/uL RBC (3.80-5.50) 10^6/uL Hgb (12.0-16.0) g/dL Hct (37.0-47.0) % MCV (82.0-92.0) fL MCH (27.0-31.0) pg MCHC (32.0-36.0) g/dL RDW (11.5-14.5) % Plt Count (150-400) 10^3/uL MPV (7.4-10.4) fL Immature Gran % (Auto) (0.0-5.0) % Neut % (Auto) (50.0-70.0) % Lymph % (Auto) (20.0-40.0) % [place] % (Auto) (2.0-8.0) % Eos % (Auto) (1.0-3.0) % Baso % (Auto) (0.0-1.0) % Neut # (Auto) (2.50-7.00) 10^3/uL Lymph # (Auto) (1.00-4.00) 10^3/uL [place] # (Auto) (0.10-0.80) 10^3/uL Eos # (Auto) (0.10-0.30) 10^3/uL Baso # (Auto) (0.00-0.10) 10^3/uL Immature Gran # (Auto) (0.00-0.50) 10^3/uL ABG pH (7.35-7.45) ABG pCO2 (35-45) mmHG ABG pO2 (80-105) mmHG ABG HCO3 (22-26) mmol/L ABG Total CO2 (23-27) mmol/L ABG O2 Saturation (95-98) % ABG Base Excess (-2-3) mmol/L O2 Delivery Device Sodium (136-145) mmol/L Potassium (3.5-5.1) mmol/L Chloride (98-107) mmol/L Carbon Dioxide (21.0-32.0) mmol/L Anion Gap (5-15) mmol/L BUN (7-18) mg/dL Creatinine (0.51-1.17) mg/dL Est Cr Clr Drug Dosing mL/min Estimated GFR (MDRD) mL/min Glucose (70-140) mg/dL POC Glucose 241 H 212 H 210 H (70-140) mg/dL Lactic Acid (0.4-2.0) mmol/L Calcium (8.7-10.3) mg/dL Phosphorus (2.6-4.7) mg/dL Magnesium (1.8-2.4) mg/dL Total Bilirubin (0.2-1.0) mg/dL AST (15-37) U/L ALT (14-63) U/L Alkaline Phosphatase (46-116) U/L Total Protein (6.4-8.2) g/dL Albumin (3.40-5.00) g/dL Amylase (25-125) U/L 11/09/20 11/09/20 11/10/20 Range/Units 20:15 22:24 00:00 WBC (5.00-10.00) 10^3/uL RBC (3.80-5.50) 10^6/uL Hgb (12.0-16.0) g/dL Hct (37.0-47.0) % MCV (82.0-92.0) fL MCH (27.0-31.0) pg MCHC (32.0-36.0) g/dL RDW (11.5-14.5) % Plt Count (150-400) 10^3/uL MPV (7.4-10.4) fL Immature Gran % (Auto) (0.0-5.0) % Neut % (Auto) (50.0-70.0) % Lymph % (Auto) (20.0-40.0) % [place] % (Auto) (2.0-8.0) % Eos % (Auto) (1.0-3.0) % Baso % (Auto) (0.0-1.0) % Neut # (Auto) (2.50-7.00) 10^3/uL Lymph # (Auto) (1.00-4.00) 10^3/uL [place] # (Auto) (0.10-0.80) 10^3/uL Eos # (Auto) (0.10-0.30) 10^3/uL Baso # (Auto) (0.00-0.10) 10^3/uL Immature Gran # (Auto) (0.00-0.50) 10^3/uL ABG pH (7.35-7.45) ABG pCO2 (35-45) mmHG ABG pO2 (80-105) mmHG ABG HCO3 (22-26) mmol/L ABG Total CO2 (23-27) mmol/L ABG O2 Saturation (95-98) % ABG Base Excess (-2-3) mmol/L O2 Delivery Device Sodium (136-145) mmol/L Potassium (3.5-5.1) mmol/L Chloride (98-107) mmol/L Carbon Dioxide (21.0-32.0) mmol/L Anion Gap (5-15) mmol/L BUN (7-18) mg/dL Creatinine (0.51-1.17) mg/dL Est Cr Clr Drug Dosing mL/min Estimated GFR (MDRD) mL/min Glucose (70-140) mg/dL POC Glucose 195 H 179 H 166 H (70-140) mg/dL Lactic Acid (0.4-2.0) mmol/L Calcium (8.7-10.3) mg/dL Phosphorus (2.6-4.7) mg/dL Magnesium (1.8-2.4) mg/dL Total Bilirubin (0.2-1.0) mg/dL AST (15-37) U/L ALT (14-63) U/L Alkaline Phosphatase (46-116) U/L Total Protein (6.4-8.2) g/dL Albumin (3.40-5.00) g/dL Amylase (25-125) U/L 11/10/20 11/10/20 11/10/20 Range/Units 02:14 04:37 05:45 WBC 15.50 H (5.00-10.00) 10^3/uL RBC 4.36 (3.80-5.50) 10^6/uL Hgb 11.2 L (12.0-16.0) g/dL Hct 33.6 L (37.0-47.0) % MCV 77.1 L (82.0-92.0) fL MCH 25.7 L (27.0-31.0) pg MCHC 33.3 (32.0-36.0) g/dL RDW 14.6 H (11.5-14.5) % Plt Count 311 (150-400) 10^3/uL MPV 9.7 (7.4-10.4) fL Immature Gran % (Auto) 2.1 (0.0-5.0) % Neut % (Auto) 85.0 H (50.0-70.0) % Lymph % (Auto) 5.3 L (20.0-40.0) % [place] % (Auto) 7.4 (2.0-8.0) % Eos % (Auto) 0.1 L (1.0-3.0) % Baso % (Auto) 0.1 (0.0-1.0) % Neut # (Auto) 13.19 H (2.50-7.00) 10^3/uL Lymph # (Auto) 0.82 L (1.00-4.00) 10^3/uL [place] # (Auto) 1.15 H (0.10-0.80) 10^3/uL Eos # (Auto) 0.01 L (0.10-0.30) 10^3/uL Baso # (Auto) 0.01 (0.00-0.10) 10^3/uL Immature Gran # (Auto) 0.32 (0.00-0.50) 10^3/uL ABG pH (7.35-7.45) ABG pCO2 (35-45) mmHG ABG pO2 (80-105) mmHG ABG HCO3 (22-26) mmol/L ABG Total CO2 (23-27) mmol/L ABG O2 Saturation (95-98) % ABG Base Excess (-2-3) mmol/L O2 Delivery Device Sodium (136-145) mmol/L Potassium (3.5-5.1) mmol/L Chloride (98-107) mmol/L Carbon Dioxide (21.0-32.0) mmol/L Anion Gap (5-15) mmol/L BUN (7-18) mg/dL Creatinine (0.51-1.17) mg/dL Est Cr Clr Drug Dosing mL/min Estimated GFR (MDRD) mL/min Glucose (70-140) mg/dL POC Glucose 143 H 206 H (70-140) mg/dL Lactic Acid (0.4-2.0) mmol/L Calcium (8.7-10.3) mg/dL Phosphorus (2.6-4.7) mg/dL Magnesium (1.8-2.4) mg/dL Total Bilirubin (0.2-1.0) mg/dL AST (15-37) U/L ALT (14-63) U/L Alkaline Phosphatase (46-116) U/L Total Protein (6.4-8.2) g/dL Albumin (3.40-5.00) g/dL Amylase (25-125) U/L 11/10/20 11/10/20 11/10/20 Range/Units 05:45 05:45 06:00 WBC (5.00-10.00) 10^3/uL RBC (3.80-5.50) 10^6/uL Hgb (12.0-16.0) g/dL Hct (37.0-47.0) % MCV (82.0-92.0) fL MCH (27.0-31.0) pg MCHC (32.0-36.0) g/dL RDW (11.5-14.5) % Plt Count (150-400) 10^3/uL MPV (7.4-10.4) fL Immature Gran % (Auto) (0.0-5.0) % Neut % (Auto) (50.0-70.0) % Lymph % (Auto) (20.0-40.0) % [place] % (Auto) (2.0-8.0) % Eos % (Auto) (1.0-3.0) % Baso % (Auto) (0.0-1.0) % Neut # (Auto) (2.50-7.00) 10^3/uL Lymph # (Auto) (1.00-4.00) 10^3/uL [place] # (Auto) (0.10-0.80) 10^3/uL Eos # (Auto) (0.10-0.30) 10^3/uL Baso # (Auto) (0.00-0.10) 10^3/uL Immature Gran # (Auto) (0.00-0.50) 10^3/uL ABG pH 7.46 H (7.35-7.45) ABG pCO2 25 L (35-45) mmHG ABG pO2 76 L (80-105) mmHG ABG HCO3 18.0 L (22-26) mmol/L ABG Total CO2 19 L (23-27) mmol/L ABG O2 Saturation 96 (95-98) % ABG Base Excess -5 L (-2-3) mmol/L O2 Delivery Device Room air Sodium 145 (136-145) mmol/L Potassium 3.3 L (3.5-5.1) mmol/L Chloride 111 H (98-107) mmol/L Carbon Dioxide 21.0 (21.0-32.0) mmol/L Anion Gap 16.3 H (5-15) mmol/L BUN 25 H (7-18) mg/dL Creatinine 0.60 (0.51-1.17) mg/dL Est Cr Clr Drug Dosing 73.20 mL/min Estimated GFR (MDRD) > 60 mL/min Glucose 216 H (70-140) mg/dL POC Glucose (70-140) mg/dL Lactic Acid (0.4-2.0) mmol/L Calcium 8.2 L (8.7-10.3) mg/dL Phosphorus 1.0 L* (2.6-4.7) mg/dL Magnesium 1.5 L (1.8-2.4) mg/dL Total Bilirubin 0.5 (0.2-1.0) mg/dL AST 17 (15-37) U/L ALT 19 (14-63) U/L Alkaline Phosphatase 105 (46-116) U/L Total Protein 5.6 L (6.4-8.2) g/dL Albumin 2.02 L (3.40-5.00) g/dL Amylase < 9 L (25-125) U/L 11/10/20 11/10/20 11/10/20 Range/Units 06:04 07:51 11:35 WBC (5.00-10.00) 10^3/uL RBC (3.80-5.50) 10^6/uL Hgb (12.0-16.0) g/dL Hct (37.0-47.0) % MCV (82.0-92.0) fL MCH (27.0-31.0) pg MCHC (32.0-36.0) g/dL RDW (11.5-14.5) % Plt Count (150-400) 10^3/uL MPV (7.4-10.4) fL Immature Gran % (Auto) (0.0-5.0) % Neut % (Auto) (50.0-70.0) % Lymph % (Auto) (20.0-40.0) % [place] % (Auto) (2.0-8.0) % Eos % (Auto) (1.0-3.0) % Baso % (Auto) (0.0-1.0) % Neut # (Auto) (2.50-7.00) 10^3/uL Lymph # (Auto) (1.00-4.00) 10^3/uL [place] # (Auto) (0.10-0.80) 10^3/uL Eos # (Auto) (0.10-0.30) 10^3/uL Baso # (Auto) (0.00-0.10) 10^3/uL Immature Gran # (Auto) (0.00-0.50) 10^3/uL ABG pH (7.35-7.45) ABG pCO2 (35-45) mmHG ABG pO2 (80-105) mmHG ABG HCO3 (22-26) mmol/L ABG Total CO2 (23-27) mmol/L ABG O2 Saturation (95-98) % ABG Base Excess (-2-3) mmol/L O2 Delivery Device Sodium (136-145) mmol/L Potassium (3.5-5.1) mmol/L Chloride (98-107) mmol/L Carbon Dioxide (21.0-32.0) mmol/L Anion Gap (5-15) mmol/L BUN (7-18) mg/dL Creatinine (0.51-1.17) mg/dL Est Cr Clr Drug Dosing mL/min Estimated GFR (MDRD) mL/min Glucose (70-140) mg/dL POC Glucose 204 H 174 H (70-140) mg/dL Lactic Acid 1.7 (0.4-2.0) mmol/L Calcium (8.7-10.3) mg/dL Phosphorus (2.6-4.7) mg/dL Magnesium (1.8-2.4) mg/dL Total Bilirubin (0.2-1.0) mg/dL AST (15-37) U/L ALT (14-63) U/L Alkaline Phosphatase (46-116) U/L Total Protein (6.4-8.2) g/dL Albumin (3.40-5.00) g/dL Amylase (25-125) U/L 11/10/20 11/10/20 11/10/20 Range/Units 17:50 17:50 19:49 WBC (5.00-10.00) 10^3/uL RBC (3.80-5.50) 10^6/uL Hgb (12.0-16.0) g/dL Hct (37.0-47.0) % MCV (82.0-92.0) fL MCH (27.0-31.0) pg MCHC (32.0-36.0) g/dL RDW (11.5-14.5) % Plt Count (150-400) 10^3/uL MPV (7.4-10.4) fL Immature Gran % (Auto) (0.0-5.0) % Neut % (Auto) (50.0-70.0) % Lymph % (Auto) (20.0-40.0) % [place] % (Auto) (2.0-8.0) % Eos % (Auto) (1.0-3.0) % Baso % (Auto) (0.0-1.0) % Neut # (Auto) (2.50-7.00) 10^3/uL Lymph # (Auto) (1.00-4.00) 10^3/uL [place] # (Auto) (0.10-0.80) 10^3/uL Eos # (Auto) (0.10-0.30) 10^3/uL Baso # (Auto) (0.00-0.10) 10^3/uL Immature Gran # (Auto) (0.00-0.50) 10^3/uL ABG pH (7.35-7.45) ABG pCO2 (35-45) mmHG ABG pO2 (80-105) mmHG ABG HCO3 (22-26) mmol/L ABG Total CO2 (23-27) mmol/L ABG O2 Saturation (95-98) % ABG Base Excess (-2-3) mmol/L O2 Delivery Device Sodium 144 (136-145) mmol/L Potassium 6.4 H D (3.5-5.1) mmol/L Chloride 114 H (98-107) mmol/L Carbon Dioxide 20.7 L (21.0-32.0) mmol/L Anion Gap 15.7 H (5-15) mmol/L BUN 20 H (7-18) mg/dL Creatinine 0.53 (0.51-1.17) mg/dL Est Cr Clr Drug Dosing 82.87 mL/min Estimated GFR (MDRD) > 60 mL/min Glucose 371 H (70-140) mg/dL POC Glucose 216 H (70-140) mg/dL Lactic Acid (0.4-2.0) mmol/L Calcium 7.4 L (8.7-10.3) mg/dL Phosphorus 3.0 (2.6-4.7) mg/dL Magnesium (1.8-2.4) mg/dL Total Bilirubin 0.5 (0.2-1.0) mg/dL AST 21 (15-37) U/L ALT 19 (14-63) U/L Alkaline Phosphatase 95 (46-116) U/L Total Protein 4.9 L (6.4-8.2) g/dL Albumin 1.70 L (3.40-5.00) g/dL Amylase (25-125) U/L Med Orders - Current: Current Medications Ceftriaxone Sodium (Ceftriaxone 1 Gm Vial) 1 gm IVPUSH Q24H [facility] Last Admin: 11/10/20 19:12 Dose: 1 gm Documented by: Dextrose/Water (50% Dextrose In Water 50 Ml Syringe) 50 ml IVPUSH ASDIRECTED PRN PRN Reason: Hypoglycemia Enoxaparin Sodium (Enoxaparin 40 Mg/0.4 Ml Syringe) 40 mg SUBCUT Q24H [facility] Last Admin: 11/10/20 14:12 Dose: 40 mg Documented by: Glucagon (Glucagon,Human Recombinant 1 Mg Vial) 1 mg IM ASDIRECTED PRN PRN Reason: Hypoglycemia Haloperidol Lactate (Haloperidol Lactate 5 Mg/Ml Sdv) 5 mg IM Q8H PRN PRN Reason: Agitation Last Admin: 11/10/20 17:47 Dose: 5 mg Documented by: Sodium Chloride (Normal Saline) 50 mls @ 200 mls/hr IV ASDIRECTED [facility] Sodium Chloride (Normal Saline) 1,000 mls @ 200 mls/hr IV ASDIRECTED [facility] Insulin Aspart (Insulin Aspart 100 Units/Ml 3 Ml Pen) 0 unit SUBCUT Q2H [facility]; Protocol Last Admin: 11/10/20 22:02 Dose: 4 units Documented by: Iopamidol (Iopamidol 755 Mg/Ml 75 Ml Bottle) 75 ml IVPUSH ONETIME ONE Stop: 11/10/20 22:00 Metoprolol Tartrate (Metoprolol Tartrate 5 Mg/5 Ml Sdv) 5 mg IVPUSH Q6H PRN PRN Reason: Tachycardia Last Admin: 11/10/20 19:06 Dose: 5 mg Documented by: Metoprolol Tartrate (Metoprolol Tartrate 5 Mg/5 Ml Sdv) 5 mg IVPUSH ONETIME ONE Stop: 11/10/20 22:01 Morphine Sulfate (Morphine 2 Mg/Ml Syringe) 2 mg IVPUSH Q2H PRN PRN Reason: Agitation Last Admin: 11/10/20 20:15 Dose: 2 mg Documented by: Ondansetron HCl (Ondansetron 4 Mg/2 Ml Sdv) 4 mg IV Q6H PRN PRN Reason: Nausea/Vomiting Last Admin: 11/08/20 16:25 Dose: 4 mg Documented by: Pantoprazole Sodium (Pantoprazole 40 Mg Vial) 40 mg IVPUSH BEDTIME [facility] Last Admin: 11/10/20 20:15 Dose: 40 mg Documented by: Sodium Chloride (Sodium Chloride 0.9% 10 Ml Syringe) 10 ml FLUSH Q8HR PRN PRN Reason: keep vein open Last Admin: 11/09/20 23:47 Dose: 10 ml Documented by: Discontinued Medications Aspirin (Aspirin 81 Mg Tab.Ec) 81 mg PO DAILY [facility] Last Admin: 11/08/20 08:14 Dose: 81 mg Documented by: Bisacodyl (Bisacodyl 10 Mg Supp) 10 mg RECTAL ONETIME ONE Stop: 11/10/20 11:51 Last Admin: 11/10/20 11:58 Dose: 10 mg Documented by: Al Hydroxide/Mg Hydroxide 30 (ml/ Lidocaine HCl 15 ml) 0 ml PO ONETIME ONE Stop: 11/09/20 20:36 Last Admin: 11/09/20 22:00 Dose: 45 ml Documented by: Enalapril Maleate (Enalapril 5 Mg Tab) 20 mg PO DAILY [facility] Haloperidol (Haloperidol 0.5 Mg Tab) 0.5 mg PO ONETIME ONE Stop: 11/09/20 19:48 Last Admin: 11/09/20 20:19 Dose: 0.5 mg Documented by: Haloperidol (Haloperidol 0.5 Mg Tab) 1 mg PO ONETIME ONE Stop: 11/09/20 20:36 Last Admin: 11/09/20 22:19 Dose: 1 mg Documented by: Haloperidol Lactate (Haloperidol Lactate 5 Mg/Ml Sdv) 1 mg IM ONETIME ONE Stop: 11/09/20 04:28 Last Admin: 11/09/20 08:00 Dose: Not Given Documented by: Haloperidol Lactate (Haloperidol Lactate 5 Mg/Ml Sdv) 5 mg IM ONETIME ONE Stop: 11/10/20 08:28 Last Admin: 11/10/20 08:49 Dose: 5 mg Documented by: Sodium Chloride (Normal Saline) 1,000 mls @ 999 mls/hr IV .BOLUS ONE Stop: 11/07/20 18:09 Last Admin: 11/07/20 17:20 Dose: 999 mls/hr Documented by: Potassium Chloride/Sodium Chloride (Normal Saline With 40 Meq Kcl) 1,000 mls @ 125 mls/hr IV ASDIRECTED [facility] Last Admin: 11/08/20 05:31 Dose: 125 mls/hr Documented by: Sodium Chloride (Normal Saline) 1,000 mls @ 125 mls/hr IV ASDIRECTED [facility] Last Infusion: 11/08/20 15:13 Dose: 150 mls/hr Documented by: Sodium Chloride (Normal Saline) 1,000 mls @ 999 mls/hr IV .BOLUS ONE Stop: 11/08/20 14:59 Last Admin: 11/08/20 14:34 Dose: 999 mls/hr Documented by: Insulin Regular in 0.9 % NACL (Myxredlin In Ns 100 Unit/100 Ml) 100 unit in 100 mls @ 9.072 mls/hr IV TITRATE [facility]; Protocol Last Admin: 11/08/20 15:52 Dose: 0.1 units/kg/hr, 9.072 mls/hr Documented by: Dextrose/Water (Dextrose 5% In Water) 1,000 mls @ 75 mls/hr IV ASDIRECTED [facility] Last Admin: 11/08/20 19:20 Dose: 75 mls/hr Documented by: Lactated Ringer's (Ringers, Lactated) 1,000 mls @ 75 mls/hr IV ASDIRECTED [facility] Last Admin: 11/09/20 10:39 Dose: 75 mls/hr Documented by: Sodium Chloride (Normal Saline) 500 mls @ 999 mls/hr IV .BOLUS ONE Stop: 11/08/20 20:35 Last Admin: 11/08/20 20:16 Dose: 999 mls/hr Documented by: Potassium Chloride 10 meq/ (Premix) 50 mls @ 50 mls/hr IV ONETIME ONE Stop: 11/08/20 22:11 Last Admin: 11/08/20 21:41 Dose: 50 mls/hr Documented by: Sodium Bicarbonate 50 meq/ (Sodium Chloride) 150 mls @ 150 mls/hr IV ONETIME ONE Stop: 11/08/20 22:29 Last Admin: 11/08/20 21:32 Dose: 150 mls/hr Documented by: Potassium Chloride 20 meq/ (Premix) 100 mls @ 50 mls/hr IV ONETIME ONE Stop: 11/09/20 00:12 Last Admin: 11/08/20 22:48 Dose: 50 mls/hr Documented by: Dextrose/Sodium Chloride (Dextrose 5%-1/2 Ns) 1,000 mls @ 75 mls/hr IV ASDIRECTED [facility] Last Admin: 11/08/20 23:52 Dose: 75 mls/hr Documented by: Sodium Chloride (Normal Saline) 100 mls @ 200 mls/hr IV ASDIRECTED [facility] Last Admin: 11/08/20 17:30 Dose: 200 mls/hr Documented by: Potassium Chloride/Dextrose/Sod Cl (D5 1/2 Ns W/ 40 Meq/L Kcl) 1,000 mls @ 70 mls/hr IV ASDIRECTED [facility] Potassium Chloride 20 meq/ (Premix) 100 mls @ 50 mls/hr IV ONETIME ONE Stop: 11/09/20 13:58 Last Admin: 11/09/20 12:27 Dose: 50 mls/hr Documented by: Potassium Chloride 20 meq/ (Premix) 100 mls @ 50 mls/hr IV ONETIME ONE Stop: 11/09/20 16:59 Last Admin: 11/09/20 14:36 Dose: 50 mls/hr Documented by: Potassium Chloride/Dextrose/Sod Cl (D5 1/2 Ns W/ 40 Meq/L Kcl) 1,000 mls @ 70 mls/hr IV ASDIRECTED [facility] Last Admin: 11/10/20 06:42 Dose: 70 mls/hr Documented by: Sodium Phosphate 45 mmole/ (Sodium Chloride) 265 mls @ 44 mls/hr IV ONETIME ONE Stop: 11/10/20 17:31 Last Admin: 11/10/20 11:47 Dose: 44 mls/hr Documented by: Lactated Ringer's (Ringers, Lactated) 1,000 mls @ 125 mls/hr IV ASDIRECTED [facility] Last Admin: 11/10/20 14:16 Dose: 125 mls/hr Documented by: Potassium Chloride 20 meq/ (Premix) 100 mls @ 50 mls/hr IV ONETIME ONE Stop: 11/10/20 14:44 Last Admin: 11/10/20 14:08 Dose: 50 mls/hr Documented by: Potassium Chloride 20 meq/ (Premix) 100 mls @ 50 mls/hr IV ONETIME ONE Stop: 11/10/20 17:59 Last Admin: 11/10/20 16:18 Dose: 50 mls/hr Documented by: Potassium Chloride 20 meq/ (Premix) 100 mls @ 50 mls/hr IV ONETIME ONE Stop: 11/10/20 21:59 Last Admin: 11/10/20 19:07 Dose: 50 mls/hr Documented by: Insulin Aspart (Insulin Aspart 100 Units/Ml 3 Ml Pen) 0 unit SUBCUT WITHMEALSANDBED [facility]; Protocol Last Admin: 11/08/20 12:19 Dose: 3 units Documented by: Insulin Glargine (Insulin Glargine,Hum.Rec.Anlog 100 Unit/Ml 3 Ml Pen) 15 unit SUBCUT DAILY [facility] Insulin Glargine (Insulin Glargine,Hum.Rec.Anlog 100 Unit/Ml 3 Ml Pen) 5 unit SUBCUT DAILY [facility] Last Admin: 11/08/20 08:16 Dose: 5 units Documented by: Insulin Glargine (Insulin Glargine,Hum.Rec.Anlog 100 Unit/Ml 3 Ml Pen) 10 unit SUBCUT ONETIME ONE Stop: 11/09/20 11:01 Insulin Glargine (Insulin Glargine,Hum.Rec.Anlog 100 Unit/Ml 3 Ml Pen) 10 unit SUBCUT ONETIME ONE Stop: 11/08/20 11:01 Last Admin: 11/08/20 12:00 Dose: 10 units Documented by: Iopamidol (Iopamidol 755 Mg/Ml 75 Ml Bottle) 75 ml IVPUSH ONETIME ONE Stop: 11/08/20 17:08 Last Admin: 11/08/20 22:55 Dose: 75 ml Documented by: Lorazepam (Lorazepam 2 Mg/Ml Sdv) 0.25 mg IVPUSH ONETIME ONE Stop: 11/08/20 22:43 Last Admin: 11/08/20 23:38 Dose: 0.25 mg Documented by: Lorazepam (Lorazepam 2 Mg/Ml Sdv) 0.25 mg IVPUSH ONETIME ONE Stop: 11/09/20 02:10 Last Admin: 11/09/20 02:30 Dose: 0.25 mg Documented by: Lorazepam (Lorazepam 2 Mg/Ml Sdv) 0.5 mg IVPUSH ONETIME ONE Stop: 11/09/20 23:21 Last Admin: 11/09/20 23:40 Dose: 0.5 mg Documented by: Lorazepam (Lorazepam 2 Mg/Ml Sdv) 0.5 mg IVPUSH ONETIME ONE Stop: 11/10/20 01:54 Last Admin: 11/10/20 02:17 Dose: 0.5 mg Documented by: Lorazepam (Lorazepam 2 Mg/Ml Sdv) 0.5 mg IVPUSH ONETIME ONE Stop: 11/10/20 05:23 Last Admin: 11/10/20 05:41 Dose: 0.5 mg Documented by: Melatonin (Melatonin 3 Mg Tab) 3 mg PO BEDTIME PRN PRN Reason: Insomnia Last Admin: 11/07/20 23:00 Dose: 3 mg Documented by: Metoclopramide HCl (Metoclopramide 10 Mg/2 Ml Sdv) 10 mg IVPUSH ONETIME ONE Stop: 11/07/20 18:37 Last Admin: 11/07/20 18:40 Dose: 10 mg Documented by: Metoclopramide HCl (Metoclopramide 10 Mg/2 Ml Sdv) 5 mg IVPUSH Q6H SUPRIYA Last Admin: 11/09/20 18:23 Dose: 5 mg Documented by: Metoprolol Tartrate (Metoprolol Tartrate 5 Mg/5 Ml Sdv) 5 mg IVPUSH ONETIME ONE Stop: 11/10/20 12:25 Last Admin: 11/10/20 14:09 Dose: 5 mg Documented by: Morphine Sulfate (Morphine 2 Mg/Ml Syringe) 2 mg IVPUSH ONETIME ONE Stop: 11/10/20 11:53 Last Admin: 11/10/20 11:58 Dose: 2 mg Documented by: Non-Formulary Medication (Non-Formulary Medication 1 Each) 5 each SUBCUT DAILY [facility] Ondansetron HCl (Ondansetron 4 Mg/2 Ml Sdv) 4 mg IVPUSH ONETIME ONE Stop: 11/07/20 17:10 Last Admin: 11/07/20 17:29 Dose: 4 mg Documented by: Ondansetron HCl (Ondansetron 4 Mg Tab.Dis) 4 mg PO Q6HR PRN PRN Reason: Nausea Last Admin: 11/08/20 04:57 Dose: 4 mg Documented by: Ondansetron HCl (Ondansetron 4 Mg/2 Ml Sdv) 4 mg IVPUSH ONETIME ONE Stop: 11/08/20 19:45 Last Admin: 11/08/20 19:54 Dose: 4 mg Documented by: Sertraline HCl (Sertraline 50 Mg Tab) 50 mg PO 1700 SUPRIYA Last Admin: 11/08/20 16:27 Dose: 50 mg Documented by: Simvastatin (Simvastatin 20 Mg Tab) 40 mg PO DAILY [facility] Sodium Phosphate (Phosphorus #1 250 Mg Tab) 500 mg PO ONETIME ONE Stop: 11/08/20 23:10 Last Admin: 11/08/20 23:35 Dose: 500 mg Documented by: Sodium Phosphate (Phosphorus #1 250 Mg Tab) 500 mg PO ONETIME ONE Stop: 11/08/20 05:01 Last Admin: 11/08/20 23:16 Dose: Not Given Documented by: Sodium Phosphate (Phosphorus #1 250 Mg Tab) 500 mg PO ONETIME ONE Stop: 11/09/20 05:01 Last Admin: 11/09/20 05:12 Dose: 500 mg Documented by: Sodium Phosphate (Phosphorus #1 250 Mg Tab) 500 mg PO ONETIME ONE Stop: 11/09/20 17:01 Last Admin: 11/09/20 16:08 Dose: 500 mg Documented by: Sodium Phosphate (Phosphorus #1 250 Mg Tab) 500 mg PO ONETIME ONE Stop: 11/09/20 21:01 Last Admin: 11/09/20 20:19 Dose: 500 mg Documented by: Sodium Phosphate (Phosphorus #1 250 Mg Tab) 750 mg PO QID [facility] Last Admin: 11/10/20 09:48 Dose: Not Given Documented by: - Exam Quality Assessment: Urine Catheter, DVT Prophylaxis. No: Supplemental Oxygen Urinary Catheter Total Time: 1Days 0Hours General: Obtunded HEENT: Mucous Membr. Moist/[place] Neck: Supple Lungs: Clear to Auscultation, Normal Respiratory Effort. No: Crackles Cardiovascular: Tachycardia. No: Murmurs GI/Abdominal Exam: Soft, No Distention, Tender, Abnormal Bowel Sounds (faint) (Female) Exam: Deferred Extremities: No Pedal Edema Skin: Warm, Dry, Intact Psy/Mental Status: No: Alert - Patient Data Lab Results Last 24 hrs: Laboratory Results - last 24 hr 11/09/20 11/09/20 11/09/20 Range/Units 14:08 16:03 18:19 WBC (5.00-10.00) 10^3/uL RBC (3.80-5.50) 10^6/uL Hgb (12.0-16.0) g/dL Hct (37.0-47.0) % MCV (82.0-92.0) fL MCH (27.0-31.0) pg MCHC (32.0-36.0) g/dL RDW (11.5-14.5) % Plt Count (150-400) 10^3/uL MPV (7.4-10.4) fL Immature Gran % (Auto) (0.0-5.0) % Neut % (Auto) (50.0-70.0) % Lymph % (Auto) (20.0-40.0) % [place] % (Auto) (2.0-8.0) % Eos % (Auto) (1.0-3.0) % Baso % (Auto) (0.0-1.0) % Neut # (Auto) (2.50-7.00) 10^3/uL Lymph # (Auto) (1.00-4.00) 10^3/uL [place] # (Auto) (0.10-0.80) 10^3/uL Eos # (Auto) (0.10-0.30) 10^3/uL Baso # (Auto) (0.00-0.10) 10^3/uL Immature Gran # (Auto) (0.00-0.50) 10^3/uL ABG pH (7.35-7.45) ABG pCO2 (35-45) mmHG ABG pO2 (80-105) mmHG ABG HCO3 (22-26) mmol/L ABG Total CO2 (23-27) mmol/L ABG O2 Saturation (95-98) % ABG Base Excess (-2-3) mmol/L O2 Delivery Device Sodium (136-145) mmol/L Potassium (3.5-5.1) mmol/L Chloride (98-107) mmol/L Carbon Dioxide (21.0-32.0) mmol/L Anion Gap (5-15) mmol/L BUN (7-18) mg/dL Creatinine (0.51-1.17) mg/dL Est Cr Clr Drug Dosing mL/min Estimated GFR (MDRD) mL/min Glucose (70-140) mg/dL POC Glucose 241 H 212 H 210 H (70-140) mg/dL Lactic Acid (0.4-2.0) mmol/L Calcium (8.7-10.3) mg/dL Phosphorus (2.6-4.7) mg/dL Magnesium (1.8-2.4) mg/dL Total Bilirubin (0.2-1.0) mg/dL AST (15-37) U/L ALT (14-63) U/L Alkaline Phosphatase (46-116) U/L Total Protein (6.4-8.2) g/dL Albumin (3.40-5.00) g/dL Amylase (25-125) U/L 11/09/20 11/09/20 11/10/20 Range/Units 20:15 22:24 00:00 WBC (5.00-10.00) 10^3/uL RBC (3.80-5.50) 10^6/uL Hgb (12.0-16.0) g/dL Hct (37.0-47.0) % MCV (82.0-92.0) fL MCH (27.0-31.0) pg MCHC (32.0-36.0) g/dL RDW (11.5-14.5) % Plt Count (150-400) 10^3/uL MPV (7.4-10.4) fL Immature Gran % (Auto) (0.0-5.0) % Neut % (Auto) (50.0-70.0) % Lymph % (Auto) (20.0-40.0) % [place] % (Auto) (2.0-8.0) % Eos % (Auto) (1.0-3.0) % Baso % (Auto) (0.0-1.0) % Neut # (Auto) (2.50-7.00) 10^3/uL Lymph # (Auto) (1.00-4.00) 10^3/uL [place] # (Auto) (0.10-0.80) 10^3/uL Eos # (Auto) (0.10-0.30) 10^3/uL Baso # (Auto) (0.00-0.10) 10^3/uL Immature Gran # (Auto) (0.00-0.50) 10^3/uL ABG pH (7.35-7.45) ABG pCO2 (35-45) mmHG ABG pO2 (80-105) mmHG ABG HCO3 (22-26) mmol/L ABG Total CO2 (23-27) mmol/L ABG O2 Saturation (95-98) % ABG Base Excess (-2-3) mmol/L O2 Delivery Device Sodium (136-145) mmol/L Potassium (3.5-5.1) mmol/L Chloride (98-107) mmol/L Carbon Dioxide (21.0-32.0) mmol/L Anion Gap (5-15) mmol/L BUN (7-18) mg/dL Creatinine (0.51-1.17) mg/dL Est Cr Clr Drug Dosing mL/min Estimated GFR (MDRD) mL/min Glucose (70-140) mg/dL POC Glucose 195 H 179 H 166 H (70-140) mg/dL Lactic Acid (0.4-2.0) mmol/L Calcium (8.7-10.3) mg/dL Phosphorus (2.6-4.7) mg/dL Magnesium (1.8-2.4) mg/dL Total Bilirubin (0.2-1.0) mg/dL AST (15-37) U/L ALT (14-63) U/L Alkaline Phosphatase (46-116) U/L Total Protein (6.4-8.2) g/dL Albumin (3.40-5.00) g/dL Amylase (25-125) U/L 11/10/20 11/10/20 11/10/20 Range/Units 02:14 04:37 05:45 WBC 15.50 H (5.00-10.00) 10^3/uL RBC 4.36 (3.80-5.50) 10^6/uL Hgb 11.2 L (12.0-16.0) g/dL Hct 33.6 L (37.0-47.0) % MCV 77.1 L (82.0-92.0) fL MCH 25.7 L (27.0-31.0) pg MCHC 33.3 (32.0-36.0) g/dL RDW 14.6 H (11.5-14.5) % Plt Count 311 (150-400) 10^3/uL MPV 9.7 (7.4-10.4) fL Immature Gran % (Auto) 2.1 (0.0-5.0) % Neut % (Auto) 85.0 H (50.0-70.0) % Lymph % (Auto) 5.3 L (20.0-40.0) % [place] % (Auto) 7.4 (2.0-8.0) % Eos % (Auto) 0.1 L (1.0-3.0) % Baso % (Auto) 0.1 (0.0-1.0) % Neut # (Auto) 13.19 H (2.50-7.00) 10^3/uL Lymph # (Auto) 0.82 L (1.00-4.00) 10^3/uL [place] # (Auto) 1.15 H (0.10-0.80) 10^3/uL Eos # (Auto) 0.01 L (0.10-0.30) 10^3/uL Baso # (Auto) 0.01 (0.00-0.10) 10^3/uL Immature Gran # (Auto) 0.32 (0.00-0.50) 10^3/uL ABG pH (7.35-7.45) ABG pCO2 (35-45) mmHG ABG pO2 (80-105) mmHG ABG HCO3 (22-26) mmol/L ABG Total CO2 (23-27) mmol/L ABG O2 Saturation (95-98) % ABG Base Excess (-2-3) mmol/L O2 Delivery Device Sodium (136-145) mmol/L Potassium (3.5-5.1) mmol/L Chloride (98-107) mmol/L Carbon Dioxide (21.0-32.0) mmol/L Anion Gap (5-15) mmol/L BUN (7-18) mg/dL Creatinine (0.51-1.17) mg/dL Est Cr Clr Drug Dosing mL/min Estimated GFR (MDRD) mL/min Glucose (70-140) mg/dL POC Glucose 143 H 206 H (70-140) mg/dL Lactic Acid (0.4-2.0) mmol/L Calcium (8.7-10.3) mg/dL Phosphorus (2.6-4.7) mg/dL Magnesium (1.8-2.4) mg/dL Total Bilirubin (0.2-1.0) mg/dL AST (15-37) U/L ALT (14-63) U/L Alkaline Phosphatase (46-116) U/L Total Protein (6.4-8.2) g/dL Albumin (3.40-5.00) g/dL Amylase (25-125) U/L 11/10/20 11/10/20 11/10/20 Range/Units 05:45 05:45 06:00 WBC (5.00-10.00) 10^3/uL RBC (3.80-5.50) 10^6/uL Hgb (12.0-16.0) g/dL Hct (37.0-47.0) % MCV (82.0-92.0) fL MCH (27.0-31.0) pg MCHC (32.0-36.0) g/dL RDW (11.5-14.5) % Plt Count (150-400) 10^3/uL MPV (7.4-10.4) fL Immature Gran % (Auto) (0.0-5.0) % Neut % (Auto) (50.0-70.0) % Lymph % (Auto) (20.0-40.0) % [place] % (Auto) (2.0-8.0) % Eos % (Auto) (1.0-3.0) % Baso % (Auto) (0.0-1.0) % Neut # (Auto) (2.50-7.00) 10^3/uL Lymph # (Auto) (1.00-4.00) 10^3/uL [place] # (Auto) (0.10-0.80) 10^3/uL Eos # (Auto) (0.10-0.30) 10^3/uL Baso # (Auto) (0.00-0.10) 10^3/uL Immature Gran # (Auto) (0.00-0.50) 10^3/uL ABG pH 7.46 H (7.35-7.45) ABG pCO2 25 L (35-45) mmHG ABG pO2 76 L (80-105) mmHG ABG HCO3 18.0 L (22-26) mmol/L ABG Total CO2 19 L (23-27) mmol/L ABG O2 Saturation 96 (95-98) % ABG Base Excess -5 L (-2-3) mmol/L O2 Delivery Device Room air Sodium 145 (136-145) mmol/L Potassium 3.3 L (3.5-5.1) mmol/L Chloride 111 H (98-107) mmol/L Carbon Dioxide 21.0 (21.0-32.0) mmol/L Anion Gap 16.3 H (5-15) mmol/L BUN 25 H (7-18) mg/dL Creatinine 0.60 (0.51-1.17) mg/dL Est Cr Clr Drug Dosing 73.20 mL/min Estimated GFR (MDRD) > 60 mL/min Glucose 216 H (70-140) mg/dL POC Glucose (70-140) mg/dL Lactic Acid (0.4-2.0) mmol/L Calcium 8.2 L (8.7-10.3) mg/dL Phosphorus 1.0 L* (2.6-4.7) mg/dL Magnesium 1.5 L (1.8-2.4) mg/dL Total Bilirubin 0.5 (0.2-1.0) mg/dL AST 17 (15-37) U/L ALT 19 (14-63) U/L Alkaline Phosphatase 105 (46-116) U/L Total Protein 5.6 L (6.4-8.2) g/dL Albumin 2.02 L (3.40-5.00) g/dL Amylase < 9 L (25-125) U/L 11/10/20 11/10/20 11/10/20 Range/Units 06:04 07:51 11:35 WBC (5.00-10.00) 10^3/uL RBC (3.80-5.50) 10^6/uL Hgb (12.0-16.0) g/dL Hct (37.0-47.0) % MCV (82.0-92.0) fL MCH (27.0-31.0) pg MCHC (32.0-36.0) g/dL RDW (11.5-14.5) % Plt Count (150-400) 10^3/uL MPV (7.4-10.4) fL Immature Gran % (Auto) (0.0-5.0) % Neut % (Auto) (50.0-70.0) % Lymph % (Auto) (20.0-40.0) % [place] % (Auto) (2.0-8.0) % Eos % (Auto) (1.0-3.0) % Baso % (Auto) (0.0-1.0) % Neut # (Auto) (2.50-7.00) 10^3/uL Lymph # (Auto) (1.00-4.00) 10^3/uL [place] # (Auto) (0.10-0.80) 10^3/uL Eos # (Auto) (0.10-0.30) 10^3/uL Baso # (Auto) (0.00-0.10) 10^3/uL Immature Gran # (Auto) (0.00-0.50) 10^3/uL ABG pH (7.35-7.45) ABG pCO2 (35-45) mmHG ABG pO2 (80-105) mmHG ABG HCO3 (22-26) mmol/L ABG Total CO2 (23-27) mmol/L ABG O2 Saturation (95-98) % ABG Base Excess (-2-3) mmol/L O2 Delivery Device Sodium (136-145) mmol/L Potassium (3.5-5.1) mmol/L Chloride (98-107) mmol/L Carbon Dioxide (21.0-32.0) mmol/L Anion Gap (5-15) mmol/L BUN (7-18) mg/dL Creatinine (0.51-1.17) mg/dL Est Cr Clr Drug Dosing mL/min Estimated GFR (MDRD) mL/min Glucose (70-140) mg/dL POC Glucose 204 H 174 H (70-140) mg/dL Lactic Acid 1.7 (0.4-2.0) mmol/L Calcium (8.7-10.3) mg/dL Phosphorus (2.6-4.7) mg/dL Magnesium (1.8-2.4) mg/dL Total Bilirubin (0.2-1.0) mg/dL AST (15-37) U/L ALT (14-63) U/L Alkaline Phosphatase (46-116) U/L Total Protein (6.4-8.2) g/dL Albumin (3.40-5.00) g/dL Amylase (25-125) U/L 11/10/20 11/10/20 11/10/20 Range/Units 17:50 17:50 19:49 WBC (5.00-10.00) 10^3/uL RBC (3.80-5.50) 10^6/uL Hgb (12.0-16.0) g/dL Hct (37.0-47.0) % MCV (82.0-92.0) fL MCH (27.0-31.0) pg MCHC (32.0-36.0) g/dL RDW (11.5-14.5) % Plt Count (150-400) 10^3/uL MPV (7.4-10.4) fL Immature Gran % (Auto) (0.0-5.0) % Neut % (Auto) (50.0-70.0) % Lymph % (Auto) (20.0-40.0) % [place] % (Auto) (2.0-8.0) % Eos % (Auto) (1.0-3.0) % Baso % (Auto) (0.0-1.0) % Neut # (Auto) (2.50-7.00) 10^3/uL Lymph # (Auto) (1.00-4.00) 10^3/uL [place] # (Auto) (0.10-0.80) 10^3/uL Eos # (Auto) (0.10-0.30) 10^3/uL Baso # (Auto) (0.00-0.10) 10^3/uL Immature Gran # (Auto) (0.00-0.50) 10^3/uL ABG pH (7.35-7.45) ABG pCO2 (35-45) mmHG ABG pO2 (80-105) mmHG ABG HCO3 (22-26) mmol/L ABG Total CO2 (23-27) mmol/L ABG O2 Saturation (95-98) % ABG Base Excess (-2-3) mmol/L O2 Delivery Device Sodium 144 (136-145) mmol/L Potassium 6.4 H D (3.5-5.1) mmol/L Chloride 114 H (98-107) mmol/L Carbon Dioxide 20.7 L (21.0-32.0) mmol/L Anion Gap 15.7 H (5-15) mmol/L BUN 20 H (7-18) mg/dL Creatinine 0.53 (0.51-1.17) mg/dL Est Cr Clr Drug Dosing 82.87 mL/min Estimated GFR (MDRD) > 60 mL/min Glucose 371 H (70-140) mg/dL POC Glucose 216 H (70-140) mg/dL Lactic Acid (0.4-2.0) mmol/L Calcium 7.4 L (8.7-10.3) mg/dL Phosphorus 3.0 (2.6-4.7) mg/dL Magnesium (1.8-2.4) mg/dL Total Bilirubin 0.5 (0.2-1.0) mg/dL AST 21 (15-37) U/L ALT 19 (14-63) U/L Alkaline Phosphatase 95 (46-116) U/L Total Protein 4.9 L (6.4-8.2) g/dL Albumin 1.70 L (3.40-5.00) g/dL Amylase (25-125) U/L Result Diagrams: 11/10/20 05:45 11/10/20 17:50 Sepsis Event Note - Evaluation Sepsis Screening Result: Possible Sepsis Risk - Focused Exam Vital Signs: Vital Signs Temp Pulse Pulse Resp BP BP BP 11/10/20 20:00 99.0 F 124 H 32 H 168/63 H 11/10/20 19:06 135 H 160/67 H 11/10/20 15:00 97.9 F 136 H 24 H 158/79 H 11/10/20 14:09 136 H 158/79 H 11/10/20 10:44 96.7 F L 136 H 28 H 158/88 H Pulse Ox 11/10/20 20:00 96 11/10/20 19:06 11/10/20 15:00 97 11/10/20 14:09 11/10/20 10:44 97 - Problem List Review Problem List Initiated/Reviewed/Updated: Yes - My Orders Last 24 Hours: My Active Orders 11/10/20 18:19 Metoprolol Tartrate [Lopressor] 5 mg IVPUSH Q6H PRN 11/10/20 18:30 cefTRIAXone [Rocephin] 1 gm IVPUSH Q24H 11/10/20 21:28 Abdomen w Cont [CT] Stat 11/10/20 23:00 BMP [BASIC METABOLIC PANEL,BMP] [CHEM] Routine 11/11/20 05:11 CRP [C-REACTIVE PROTEIN] [CHEM] AM LACTIC ACID [CHEM] AM MAGNESIUM [CHEM] AM PHOSPHORUS [CHEM] AM - Plan Plan:: HPI summary: Jannet is a 70yF who was tested for COVID at the [facility] on Friday11/06/20, the result of which was positive. Arrangements were made for her to receive IV fluids and REGEN-COV at [facility] Friday. Patient tolerated this well. She then called [facility] on Friday reporting diarrhea and was advised to try immodium. Patient subsequently presented to the [facility] ER by last evening due to nausea, dizziness, weakness symptoms related to COVID. ED course: Afebrile, normotensive in ER. Tachycardia noted. Oxygenation stable on room air. CXR negative. Na 136, K 3.3, BUN 44, Creatinine 0.98. Glucose 256, Alk phos 117, Albumin 2.79, Anion gap 30.9, Urine ketones > 160. She was admitted to observation status for IV fluids which initially was ordered as NS + 40 mEq KCl @ 125ml/hr due to mild hypokalemia per Dr Valdez. Patient restarted on her home medications upon admission including her lantus, however this was ordered at 5 units daily, home dose is 45 units daily in addition to low dose novolog ssi. Hospital course: 11/08/20: Patient rather nauseated upon rounds this morning, she is feeling quite ill. Tachycardia persists, will start cardiac monitoring. Patient quite ill appearing and pale. Lung sounds clear, HR tachy and regular. Bowel sounds present, abdomen soft, NT. Additional 10 units of lantus to be given in addition to 5 given this morning due to blood glucose of 315. No morning labs were ordered, will order complete recommended admission panel per [place] COVID guidelines incluidng CBC, CK, CRP, LDH, procal, PT/INR, PTT, lactic acid, Mg and will obtain ABG's due to concern for acidosis given initial results in ER. Will hold off on d-dimer as patient denies SOB and is on room air. Consider adding this if indicated based on clinical course. --CTA prior to NG tube decompression demonstrates no signs of PE however abdominal stomach distention ?SBO with fluid in the thoracic esophagus, follow- up abdominal CT abdomen pelvis demonstrates distended loops of small bowel, no transition point, markedly dilated stomach--all prior to NGT --Chest x-ray for NG placement demonstrates proper NG placement --Hydroxybutyrate result elevated at 8.89 11/09/2020, overnight, visual hallucinations--Ativan given, NG tube placed, immediate 600 out, 1000 cc overnight shift however appears to be slowing down--light brown, verify placement, indwelling Odonnell catheter laced after bladder scan showed ~800 mL, with 800 immediate return, past 24 hours, Intake 4800, output 2100 past 24 hours however 800 cc this a.m. during rounds. Favorable BP/MAP, improving ABGs--pH now improved to 7.37, CO2 22, PO2 39, anion gap remains elevated at 22.4 however trending positively, overall fluids status close to euvolemic, ongoing tachycardia, No fevers, RR 24-30, SaO2 93-97%, RA. Unfavorable inflammatory marker indices with platelet thrombocytosis likely reactive, however no bandemia. Insulin drip discontinued at ~2300 last night at glucose of 102, changed to SS q2h, potassium trending down low as one would expect given insulin gtt. fluids of D5 one half normal saline along with LR ongoing this morning during rounds. Sodium bicarb 50 mEq given last night along with 20 MEQ of KCl 11/10/2020, multiple calls to overnight provider by nurses, agitation, tachycardia this morning, abdominal pain however no abdominal distention, unable to elicit if patient is passing flatus, digital rectal exam this morning no stool in vault, inserted suppository. 2 mg morphine given due to pain, NG tube clamped between 4 AM to 8 AM with ~200NT output. White count slightly improved, normal lactic acid, procalcitonin slightly elevated at 0.23, ABGs trending favorably, lungs are clear, no fever, skin is cool, hypertension however likely due to not taken p.o. blood pressure medicines, acute agitation component, PPI started, No stool in rectal vault per RIAN 11/10/20: Patient tachycardic, restless, moaning this evening. Metoprolol 5mg IV given with temporary improvement of heart rate, however this was short lived. HR 130s. Started IV rocephin empirically due to leukocytosis with ne utrophilia. Patient rather lethargic/obtunded; reactive to pain on mild pain on palpation of the abdomen. Bowel sounds rather faint, NG continues at low intermittent suction with brown output. Tony conversation held with family regarding guarded patient status due to multiple significant medical problems being managed medically. Two previous phone calls by [place] providers were declined by [facility] in [place] for admission for patient. Will repeat CT abdomen/pelvis to evaluate for worsening SBO or other indications of worsened clinical status given tenderness to palpation, leukocytosis, tachycardia, AMS and restlessness. Family voiced understanding of the gravity of the situation. Will await repeat CT results and contact acute care hospitals for consideration of transfer if CT findings warrant this and family desires transfer to higher level of care. Hospitalization problems and plan: # COVID-19 - normal oxygenation on room air # Metabolic/Ketoacidosis - Hydroxybutyrate result elevated at 8.89, improving, Anion gap closing. # Dehydration, improving. - Continue IV fluids - changed to NS @ 200ml/hr per Dr Valdez # Hypokalemia - IV replacement given today - K 3.3 earlier today with IV riders given, repeat result of 6.4 this evening. Stopped IV fluids containing K. - Repeat K at 2300 # Hypophosphatemia, likely due to GI obstruction/transcellular shift due to insulin, replaced today; repeat normal 3.0 # Ketonuria # Anion gap acidosis, improving. # Covid ileus vs SBO - Continue NG tube for decompression on low intermittent suction - HOB > 30 degrees # Abdominal pain with tenderness to mild palpation # Leukocytosis with neutrophilia, started patient on rocephin 1g IV daily tonight empirically for possible infection - Continue morphine, however with caution due to decreased bowel sounds, possible SBO per CT 11/08 - Repeat CT abdomen/pelvis tonight # Altered mental status - Continue haldol 5mg Q8H IM # Tachycardia - started metoprolol 5mg PO Q6H for HR > 120 # Weakness # Gastroenteritis, resolved. 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 Family would like patient to remain full code. Will update family on repeat CT results once completed per radiology.
[2020-11-10 23:35] VITALS: BP 108/50; PULSE 104
[2020-11-10 23:37] LABS: CHLORIDE,CL 118 mmol/L (98-107); SODIUM,NA 146 mmol/L (138-146)
--- NOTE | 2020-11-10 23:50 | PCM.SN.2 ---
- Free Text/Narrative Note: Received phone call from radiology with critical results: poorly defined R lower pelvic collection with fluid/air adjacent to distal small bowel obstruction loops. Collection concerning for phlegmon perhaps secondary to contained bowel leak or perforation. Findings consistent with small bowel obstruction. Moderate gallbladder distension also noted. Findings discussed with family. Call placed to [place] one call for consideration for surgical consultation that was declined this morning. Images pushed to [place] for surgeon to review. 0010 - Inquired if family would like to have Father Ashvin called as patient is Muslim to receive anointing of the sick. Family indicates that this is desired. Nursing placing call to local angular developer to perform the Sacrament. 0015 - Received return phone call from [place], Dr Dong who reviewed patient's CT images and will plan to perform emergency bowel surgery tonight at [facility]. Surgery requesting that flagyl be given and IV fluids continued. Rocephin 1g given earlier this evening empirically for leukocytosis. Time Documentation
[2020-11-10 23:52] LABS: ANION GAP 12.6 mmol/L (5-15)
[2020-11-11] MEDS: Insulin Aspart 100 Units/ML 3 ML Pen SUBCUT SCH (00:05)
[2020-11-11] MEDS ORDERED: metroNIDAZOLE/Normal Saline 500 MG in Premix Bag 1 BAG IV ONE (00:26)
--- NOTE | 2020-11-11 00:36 | PCM.DCSUM1 ---
Discharge Summary - Hospital Course Free Text/Narrative:: Date of admission: 11/07/20 Date of discharge: 11/11/20 Admission diagnoses: # COVID-19 - normal oxygenation on room air # Metabolic/Ketoacidosis - Hydroxybutyrate result elevated at 8.89, improving, Anion gap closing. # Dehydration, improving. - Continue IV fluids - changed to NS @ 200ml/hr per Dr Valdez # Hypokalemia - IV replacement given today - K 3.3 earlier today with IV riders given, repeat result of 6.4 this evening. Stopped IV fluids containing K. - Repeat K at 2300 was 3.7 # Hypophosphatemia, likely due to GI obstruction/transcellular shift due to insulin, replaced today; repeat normal 3.0 # Ketonuria # Anion gap acidosis, improving. # Covid ileus vs SBO - Continue NG tube for decompression on low intermittent suction - HOB > 30 degrees # Abdominal pain with tenderness to mild palpation # Leukocytosis with neutrophilia, started patient on rocephin 1g IV daily tonight empirically for possible infection - Continue morphine, however with caution due to decreased bowel sounds, possible SBO per CT 11/08 - Repeat CT abdomen/pelvis tonight # Altered mental status - Continue haldol 5mg Q8H IM # Tachycardia - started metoprolol 5mg PO Q6H for HR > 120 # Weakness # Gastroenteritis, resolved. Discharge diagnoses: # COVID-19 # Altered mental status # SBO # Abdominal pain with tenderness to mild palpation # Leukocytosis with neutrophilia # Metabolic/Ketoacidosis # Tachycardia # HTN - holding PO enalapril 20mg PO daily, may need # HLD - on zocor 40mg PO daily # Hypokalemia # Hypophosphatemia # DM TII w/o complication, nursing home insulin use - on metformin XL 500mg PO daily, novolog sliding scale QID, lantus 45u daily, asa 325mg PO daily # Dehydration, improving # Iron deficiency - on ferrous sulfate 325mg PO daily # Low back pain with sciatica - takes ibuprofen 400mg PO daily at home # Pap smear with atypical squamous cells of undetermined significance (ACS-US) HPI summary: Jannet is a 70yF who was tested for COVID at the [facility] on Friday11/06/20, the result of which was positive. Arrangements were made for her to receive IV fluids and REGEN-COV at [facility] Friday am. Patient tolerated this well. She then called [facility] on Friday reporting diarrhea and was advised to try immodium. Patient subsequently presented to the [facility] ER by last evening due to nausea, dizziness, weakness symptoms related to COVID. ED course: Afebrile, normotensive in ER. Tachycardia noted. Oxygenation stable on room air. CXR negative. Na 136, K 3.3, BUN 44, Creatinine 0.98. Glucose 256, Alk phos 117, Albumin 2.79, Anion gap 30.9, Urine ketones > 160. She was admitted to observation status for IV fluids which initially was ordered as NS + 40 mEq KCl @ 125ml/hr due to mild hypokalemia per Dr Valdez. Patient restarted on her home medications upon admission including her lantus, however this was ordered at 5 units daily, home dose is 45 units daily in addition to low dose novolog ssi. Hospital course: 11/08/20: Patient rather nauseated upon rounds this morning, she is feeling quite ill. Tachycardia persists, will start cardiac monitoring. Patient quite ill appearing and pale. Lung sounds clear, HR tachy and regular. Bowel sounds present, abdomen soft, NT. Additional 10 units of lantus to be given in addition to 5 given this morning due to blood glucose of 315. No morning labs were ordered, will order complete recommended admission panel per [place] COVID guidelines incluidng CBC, CK, CRP, LDH, procal, PT/INR, PTT, lactic acid, Mg and will obtain ABG's due to concern for acidosis given initial results in ER. Will hold off on d-dimer as patient denies SOB and is on room air. Consider adding this if indicated based on clinical course. --CTA prior to NG tube decompression demonstrates no signs of PE however abdominal stomach distention ?SBO with fluid in the thoracic esophagus, follow- up abdominal CT abdomen pelvis demonstrates distended loops of small bowel, no transition point, markedly dilated stomach--all prior to NGT --Chest x-ray for NG placement demonstrates proper NG placement --Hydroxybutyrate result elevated at 8.89 11/09/2020, overnight, visual hallucinations--Ativan given, NG tube placed, immediate 600 out, 1000 cc overnight shift however appears to be slowing down--light brown, verify placement, indwelling Odonnell catheter laced after bladder scan showed ~800 mL, with 800 immediate return, past 24 hours, Intake 4800, output 2100 past 24 hours however 800 cc this a.m. during rounds. Favorable BP/MAP, improving ABGs--pH now improved to 7.37, CO2 22, PO2 39, anion gap remains elevated at 22.4 however trending positively, overall fluids status close to euvolemic, ongoing tachycardia, No fevers, RR 24-30, SaO2 93-97%, RA. Unfavorable inflammatory marker indices with platelet thrombocytosis likely reactive, however no bandemia. Insulin drip discontinued at ~2300 last night at glucose of 102, changed to SS q2h, potassium trending down low as one would expect given insulin gtt. fluids of D5 one half normal saline along with LR ongoing this morning during rounds. Sodium bicarb 50 mEq given last night along with 20 MEQ of KCl 11/10/2020, multiple calls to overnight provider by nurses, agitation, tachycardia this morning, abdominal pain however no abdominal distention, unable to elicit if patient is passing flatus, digital rectal exam this morning no stool in vault, inserted suppository. 2 mg morphine given due to pain, NG tube clamped between 4 AM to 8 AM with ~200NT output. White count slightly improved, normal lactic acid, procalcitonin slightly elevated at 0.23, ABGs trending favorably, lungs are clear, no fever, skin is cool, hypertension however likely due to not taken p.o. blood pressure medicines, acute agitation component, PPI started, No stool in rectal vault per [facility]IAN 11/10/20: Patient tachycardic, restless, moaning this evening. Metoprolol 5mg IV given with temporary improvement of heart rate, however this was short lived. HR 130s. Started IV rocephin empirically due to leukocytosis with neutrophilia. Patient rather lethargic/obtunded; reactive to pain on mild pain on palpation of the abdomen. Bowel sounds rather faint, NG continues at low intermittent suction with brown output. Tony conversation held with family regarding guarded patient status due to multiple significant medical problems being managed medically. Two previous phone calls by [place] providers were declined by [facility] in [place] for admission for patient. Will repeat CT abdomen/pelvis to evaluate for worsening SBO or other indications of worsened clinical status given tenderness to palpation, leukocytosis, tachycardia, AMS and restlessness. Family voiced understanding of the gravity of the situation. Will await repeat CT results and contact acute care hospitals for consideration of transfer if CT findings warrant this and family desires transfer to higher level of care. 11/11/20: Repeat CT results indicate SBO with possible leak/perforation with fluid/gas collection measuring 8.0 x 7.6 cm; distended loops of bowel 4.3cm in diameter. Contacted [place] one-call and case discussed with Dr Dong, on-call surgeon who agrees to admit patient and perform emergency surgery tonight at [facility] in [place]. Family updated as to planned transfer and surgery tonight. [place] ambulance notified of stat transfer. Discharge and follow-up recommendations: - Discharge to [facility] per Dr Dong, surgeon for emergency bowel surgery to be performed tonight. - New medications at discharge: Flagyl 500mg IV infusing upon transfer per surgery, NS @ 200ml/hr - Follow-up post-hospitalization - Discharge Data Discharge Date: 11/11/20 Discharge Disposition: DC/Tfer to Acute Hospital 02 Condition: Serious - Referral to Home Health Primary Care Physician: Daniel Macias MD - Discharge Plan *PRESCRIPTION DRUG MONITORING PROGRAM REVIEWED*: Not Applicable *COPY OF PRESCRIPTION DRUG MONITORING REPORT IN PATIENT VIK: Not Applicable Home Medications: Home Meds Enalapril Maleate 20 mg PO DAILY 12/29/14 [History] Ibuprofen 400 tab PO DAILY 12/29/14 [History] Insulin Aspart [NovoLOG] See Protocol SQ QIDACANDBED 12/29/14 [History] Insulin Glarg,Human.Rec.Analog [LantUS] 45 unit SQ DAILY 12/29/14 [History] Multivitamin [Multivitamins] 1 tab PO DAILY 12/29/14 [History] Sertraline HCl 50 mg PO 1700 12/29/14 [History] Simvastatin 40 mg PO DAILY 12/29/14 [History] metFORMIN [Glucophage XR] 500 mg PO DAILY 12/29/14 [History] Ferrous Sulfate 325 mg PO DAILY 11/03/20 [History] ondansetron HCL [Zofran] 4 mg PO Q6HR PRN #24 tablet 11/04/20 [Rx] Aspirin [Adult Low Dose Aspirin EC] 81 mg PO DAILY 11/07/20 [History] Acetaminophen/Diphenhydramine [Tylenol Pm Ex-Strength Caplet] 1 tab PO BEDTIME PRN 11/08/20 [History] Oxygen Therapy Mode: Room Air - Discharge Summary/Plan Comment DC Time >30 min.: Yes Total # of Minutes for Discharge Time: 45 - General Info Date of Service: 11/11/20 Subjective Update: Unable to obtain due to lethargy, altered mental status - Patient Data Vitals - Most Recent: Last Vital Signs Temp 98.3 F 11/10/20 22:00 Pulse 104 H 11/10/20 22:50 Resp 32 H 11/10/20 22:00 BP 108/50 L 11/10/20 22:50 Pulse Ox 94 L 11/10/20 22:00 Weight - Most Recent: 200 lb I&O - Last 24 hours: Intake & Output 11/10/20 11/10/20 11/11/20 14:59 22:59 06:59 Intake Total 1660 Output Total 600 600 Balance -600 1060 Lab Results - Last 24 hrs: Laboratory Results - last 24 hr 11/10/20 11/10/20 11/10/20 Range/Units 02:14 04:37 05:45 WBC 15.50 H (5.00-10.00) 10^3/uL RBC 4.36 (3.80-5.50) 10^6/uL Hgb 11.2 L (12.0-16.0) g/dL Hct 33.6 L (37.0-47.0) % MCV 77.1 L (82.0-92.0) fL MCH 25.7 L (27.0-31.0) pg MCHC 33.3 (32.0-36.0) g/dL RDW 14.6 H (11.5-14.5) % Plt Count 311 (150-400) 10^3/uL MPV 9.7 (7.4-10.4) fL Immature Gran % (Auto) 2.1 (0.0-5.0) % Neut % (Auto) 85.0 H (50.0-70.0) % Lymph % (Auto) 5.3 L (20.0-40.0) % [place] % (Auto) 7.4 (2.0-8.0) % Eos % (Auto) 0.1 L (1.0-3.0) % Baso % (Auto) 0.1 (0.0-1.0) % Neut # (Auto) 13.19 H (2.50-7.00) 10^3/uL Lymph # (Auto) 0.82 L (1.00-4.00) 10^3/uL [place] # (Auto) 1.15 H (0.10-0.80) 10^3/uL Eos # (Auto) 0.01 L (0.10-0.30) 10^3/uL Baso # (Auto) 0.01 (0.00-0.10) 10^3/uL Immature Gran # (Auto) 0.32 (0.00-0.50) 10^3/uL ABG pH (7.35-7.45) ABG pCO2 (35-45) mmHG ABG pO2 (80-105) mmHG ABG HCO3 (22-26) mmol/L ABG Total CO2 (23-27) mmol/L ABG O2 Saturation (95-98) % ABG Base Excess (-2-3) mmol/L O2 Delivery Device Sodium (136-145) mmol/L Potassium (3.5-5.1) mmol/L Chloride (98-107) mmol/L Carbon Dioxide (21.0-32.0) mmol/L Anion Gap (5-15) mmol/L BUN (7-18) mg/dL Creatinine (0.51-1.17) mg/dL Est Cr Clr Drug Dosing mL/min Estimated GFR (MDRD) mL/min Glucose (70-140) mg/dL POC Glucose 143 H 206 H (70-140) mg/dL Lactic Acid (0.4-2.0) mmol/L Calcium (8.7-10.3) mg/dL Phosphorus (2.6-4.7) mg/dL Magnesium (1.8-2.4) mg/dL Total Bilirubin (0.2-1.0) mg/dL AST (15-37) U/L ALT (14-63) U/L Alkaline Phosphatase (46-116) U/L Total Protein (6.4-8.2) g/dL Albumin (3.40-5.00) g/dL Amylase (25-125) U/L 09/11/10/20 11/10/20 Range/Units 05:45 05:45 06:00 WBC (5.00-10.00) 10^3/uL RBC (3.80-5.50) 10^6/uL Hgb (12.0-16.0) g/dL Hct (37.0-47.0) % MCV (82.0-92.0) fL MCH (27.0-31.0) pg MCHC (32.0-36.0) g/dL RDW (11.5-14.5) % Plt Count (150-400) 10^3/uL MPV (7.4-10.4) fL Immature Gran % (Auto) (0.0-5.0) % Neut % (Auto) (50.0-70.0) % Lymph % (Auto) (20.0-40.0) % [place] % (Auto) (2.0-8.0) % Eos % (Auto) (1.0-3.0) % Baso % (Auto) (0.0-1.0) % Neut # (Auto) (2.50-7.00) 10^3/uL Lymph # (Auto) (1.00-4.00) 10^3/uL [place] # (Auto) (0.10-0.80) 10^3/uL Eos # (Auto) (0.10-0.30) 10^3/uL Baso # (Auto) (0.00-0.10) 10^3/uL Immature Gran # (Auto) (0.00-0.50) 10^3/uL ABG pH 7.46 H (7.35-7.45) ABG pCO2 25 L (35-45) mmHG ABG pO2 76 L (80-105) mmHG ABG HCO3 18.0 L (22-26) mmol/L ABG Total CO2 19 L (23-27) mmol/L ABG O2 Saturation 96 (95-98) % ABG Base Excess -5 L (-2-3) mmol/L O2 Delivery Device Room air Sodium 145 (136-145) mmol/L Potassium 3.3 L (3.5-5.1) mmol/L Chloride 111 H (98-107) mmol/L Carbon Dioxide 21.0 (21.0-32.0) mmol/L Anion Gap 16.3 H (5-15) mmol/L BUN 25 H (7-18) mg/dL Creatinine 0.60 (0.51-1.17) mg/dL Est Cr Clr Drug Dosing 73.20 mL/min Estimated GFR (MDRD) > 60 mL/min Glucose 216 H (70-140) mg/dL POC Glucose (70-140) mg/dL Lactic Acid (0.4-2.0) mmol/L Calcium 8.2 L (8.7-10.3) mg/dL Phosphorus 1.0 L* (2.6-4.7) mg/dL Magnesium 1.5 L (1.8-2.4) mg/dL Total Bilirubin 0.5 (0.2-1.0) mg/dL AST 17 (15-37) U/L ALT 19 (14-63) U/L Alkaline Phosphatase 105 (46-116) U/L Total Protein 5.6 L (6.4-8.2) g/dL Albumin 2.02 L (3.40-5.00) g/dL Amylase < 9 L (25-125) U/L 11/10/20 11/10/20 11/10/20 Range/Units 06:04 07:51 11:35 WBC (5.00-10.00) 10^3/uL RBC (3.80-5.50) 10^6/uL Hgb (12.0-16.0) g/dL Hct (37.0-47.0) % MCV (82.0-92.0) fL MCH (27.0-31.0) pg MCHC (32.0-36.0) g/dL RDW (11.5-14.5) % Plt Count (150-400) 10^3/uL MPV (7.4-10.4) fL Immature Gran % (Auto) (0.0-5.0) % Neut % (Auto) (50.0-70.0) % Lymph % (Auto) (20.0-40.0) % [place] % (Auto) (2.0-8.0) % Eos % (Auto) (1.0-3.0) % Baso % (Auto) (0.0-1.0) % Neut # (Auto) (2.50-7.00) 10^3/uL Lymph # (Auto) (1.00-4.00) 10^3/uL [place] # (Auto) (0.10-0.80) 10^3/uL Eos # (Auto) (0.10-0.30) 10^3/uL Baso # (Auto) (0.00-0.10) 10^3/uL Immature Gran # (Auto) (0.00-0.50) 10^3/uL ABG pH (7.35-7.45) ABG pCO2 (35-45) mmHG ABG pO2 (80-105) mmHG ABG HCO3 (22-26) mmol/L ABG Total CO2 (23-27) mmol/L ABG O2 Saturation (95-98) % ABG Base Excess (-2-3) mmol/L O2 Delivery Device Sodium (136-145) mmol/L Potassium (3.5-5.1) mmol/L Chloride (98-107) mmol/L Carbon Dioxide (21.0-32.0) mmol/L Anion Gap (5-15) mmol/L BUN (7-18) mg/dL Creatinine (0.51-1.17) mg/dL Est Cr Clr Drug Dosing mL/min Estimated GFR (MDRD) mL/min Glucose (70-140) mg/dL POC Glucose 204 H 174 H (70-140) mg/dL Lactic Acid 1.7 (0.4-2.0) mmol/L Calcium (8.7-10.3) mg/dL Phosphorus (2.6-4.7) mg/dL Magnesium (1.8-2.4) mg/dL Total Bilirubin (0.2-1.0) mg/dL AST (15-37) U/L ALT (14-63) U/L Alkaline Phosphatase (46-116) U/L Total Protein (6.4-8.2) g/dL Albumin (3.40-5.00) g/dL Amylase (25-125) U/L 11/10/20 11/10/20 11/10/20 Range/Units 17:50 17:50 19:49 WBC (5.00-10.00) 10^3/uL RBC (3.80-5.50) 10^6/uL Hgb (12.0-16.0) g/dL Hct (37.0-47.0) % MCV (82.0-92.0) fL MCH (27.0-31.0) pg MCHC (32.0-36.0) g/dL RDW (11.5-14.5) % Plt Count (150-400) 10^3/uL MPV (7.4-10.4) fL Immature Gran % (Auto) (0.0-5.0) % Neut % (Auto) (50.0-70.0) % Lymph % (Auto) (20.0-40.0) % [place] % (Auto) (2.0-8.0) % Eos % (Auto) (1.0-3.0) % Baso % (Auto) (0.0-1.0) % Neut # (Auto) (2.50-7.00) 10^3/uL Lymph # (Auto) (1.00-4.00) 10^3/uL [place] # (Auto) (0.10-0.80) 10^3/uL Eos # (Auto) (0.10-0.30) 10^3/uL Baso # (Auto) (0.00-0.10) 10^3/uL Immature Gran # (Auto) (0.00-0.50) 10^3/uL ABG pH (7.35-7.45) ABG pCO2 (35-45) mmHG ABG pO2 (80-105) mmHG ABG HCO3 (22-26) mmol/L ABG Total CO2 (23-27) mmol/L ABG O2 Saturation (95-98) % ABG Base Excess (-2-3) mmol/L O2 Delivery Device Sodium 144 (136-145) mmol/L Potassium 6.4 H D (3.5-5.1) mmol/L Chloride 114 H (98-107) mmol/L Carbon Dioxide 20.7 L (21.0-32.0) mmol/L Anion Gap 15.7 H (5-15) mmol/L BUN 20 H (7-18) mg/dL Creatinine 0.53 (0.51-1.17) mg/dL Est Cr Clr Drug Dosing 82.87 mL/min Estimated GFR (MDRD) > 60 mL/min Glucose 371 H (70-140) mg/dL POC Glucose 216 H (70-140) mg/dL Lactic Acid (0.4-2.0) mmol/L Calcium 7.4 L (8.7-10.3) mg/dL Phosphorus 3.0 (2.6-4.7) mg/dL Magnesium (1.8-2.4) mg/dL Total Bilirubin 0.5 (0.2-1.0) mg/dL AST 21 (15-37) U/L ALT 19 (14-63) U/L Alkaline Phosphatase 95 (46-116) U/L Total Protein 4.9 L (6.4-8.2) g/dL Albumin 1.70 L (3.40-5.00) g/dL Amylase (25-125) U/L 11/10/20 11/10/20 11/11/20 Range/Units 22:00 23:15 00:03 WBC (5.00-10.00) 10^3/uL RBC (3.80-5.50) 10^6/uL Hgb (12.0-16.0) g/dL Hct (37.0-47.0) % MCV (82.0-92.0) fL MCH (27.0-31.0) pg MCHC (32.0-36.0) g/dL RDW (11.5-14.5) % Plt Count (150-400) 10^3/uL MPV (7.4-10.4) fL Immature Gran % (Auto) (0.0-5.0) % Neut % (Auto) (50.0-70.0) % Lymph % (Auto) (20.0-40.0) % [place] % (Auto) (2.0-8.0) % Eos % (Auto) (1.0-3.0) % Baso % (Auto) (0.0-1.0) % Neut # (Auto) (2.50-7.00) 10^3/uL Lymph # (Auto) (1.00-4.00) 10^3/uL [place] # (Auto) (0.10-0.80) 10^3/uL Eos # (Auto) (0.10-0.30) 10^3/uL Baso # (Auto) (0.00-0.10) 10^3/uL Immature Gran # (Auto) (0.00-0.50) 10^3/uL ABG pH (7.35-7.45) ABG pCO2 (35-45) mmHG ABG pO2 (80-105) mmHG ABG HCO3 (22-26) mmol/L ABG Total CO2 (23-27) mmol/L ABG O2 Saturation (95-98) % ABG Base Excess (-2-3) mmol/L O2 Delivery Device Sodium 146 (136-145) mmol/L Potassium 3.7 (3.5-5.1) mmol/L Chloride 118 H (98-107) mmol/L Carbon Dioxide 19.1 L (21.0-32.0) mmol/L Anion Gap 12.6 (5-15) mmol/L BUN 21 H (7-18) mg/dL Creatinine 0.60 (0.51-1.17) mg/dL Est Cr Clr Drug Dosing 73.20 mL/min Estimated GFR (MDRD) > 60 mL/min Glucose 254 H (70-140) mg/dL POC Glucose 232 H 206 H (70-140) mg/dL Lactic Acid (0.4-2.0) mmol/L Calcium 7.4 L (8.7-10.3) mg/dL Phosphorus (2.6-4.7) mg/dL Magnesium (1.8-2.4) mg/dL Total Bilirubin (0.2-1.0) mg/dL AST (15-37) U/L ALT (14-63) U/L Alkaline Phosphatase (46-116) U/L Total Protein (6.4-8.2) g/dL Albumin (3.40-5.00) g/dL Amylase (25-125) U/L Med Orders - Current: Current Medications Ceftriaxone Sodium (Ceftriaxone 1 Gm Vial) 1 gm IVPUSH Q24H [facility] Last Admin: 11/10/20 19:12 Dose: 1 gm Documented by: Dextrose/Water (50% Dextrose In Water 50 Ml Syringe) 50 ml IVPUSH ASDIRECTED PRN PRN Reason: Hypoglycemia Enoxaparin Sodium (Enoxaparin 40 Mg/0.4 Ml Syringe) 40 mg SUBCUT Q24H [facility] Last Admin: 11/10/20 14:12 Dose: 40 mg Documented by: Glucagon (Glucagon,Human Recombinant 1 Mg Vial) 1 mg IM ASDIRECTED PRN PRN Reason: Hypoglycemia Haloperidol Lactate (Haloperidol Lactate 5 Mg/Ml Sdv) 5 mg IM Q8H PRN PRN Reason: Agitation Last Admin: 11/10/20 17:47 Dose: 5 mg Documented by: Sodium Chloride (Normal Saline) 50 mls @ 200 mls/hr IV ASDIRECTED [facility] Last Admin: 11/10/20 22:46 Dose: 200 mls/hr Documented by: Sodium Chloride (Normal Saline) 1,000 mls @ 200 mls/hr IV ASDIRECTED [facility] Last Admin: 11/10/20 22:52 Dose: 200 mls/hr Documented by: Metronidazole 500 mg/ Premix 100 mls @ 100 mls/hr IV ONETIME ONE Stop: 11/11/20 01:25 Insulin Aspart (Insulin Aspart 100 Units/Ml 3 Ml Pen) 0 unit SUBCUT Q2H [facility]; Protocol Last Admin: 11/11/20 00:05 Dose: 4 units Documented by: Metoprolol Tartrate (Metoprolol Tartrate 5 Mg/5 Ml Sdv) 5 mg IVPUSH Q6H PRN PRN Reason: Tachycardia Last Admin: 11/10/20 19:06 Dose: 5 mg Documented by: Morphine Sulfate (Morphine 2 Mg/Ml Syringe) 2 mg IVPUSH Q2H PRN PRN Reason: Agitation Last Admin: 11/10/20 22:51 Dose: 2 mg Documented by: Ondansetron HCl (Ondansetron 4 Mg/2 Ml Sdv) 4 mg IV Q6H PRN PRN Reason: Nausea/Vomiting Last Admin: 11/08/20 16:25 Dose: 4 mg Documented by: Pantoprazole Sodium (Pantoprazole 40 Mg Vial) 40 mg IVPUSH BEDTIME [facility] Last Admin: 11/10/20 20:15 Dose: 40 mg Documented by: Sodium Chloride (Sodium Chloride 0.9% 10 Ml Syringe) 10 ml FLUSH Q8HR PRN PRN Reason: keep vein open Last Admin: 11/09/20 23:47 Dose: 10 ml Documented by: Discontinued Medications Aspirin (Aspirin 81 Mg Tab.Ec) 81 mg PO DAILY [facility] Last Admin: 11/08/20 08:14 Dose: 81 mg Documented by: Bisacodyl (Bisacodyl 10 Mg Supp) 10 mg RECTAL ONETIME ONE Stop: 11/10/20 11:51 Last Admin: 11/10/20 11:58 Dose: 10 mg Documented by: Al Hydroxide/Mg Hydroxide 30 (ml/ Lidocaine HCl 15 ml) 0 ml PO ONETIME ONE Stop: 11/09/20 20:36 Last Admin: 11/09/20 22:00 Dose: 45 ml Documented by: Enalapril Maleate (Enalapril 5 Mg Tab) 20 mg PO DAILY [facility] Haloperidol (Haloperidol 0.5 Mg Tab) 0.5 mg PO ONETIME ONE Stop: 11/09/20 19:48 Last Admin: 11/09/20 20:19 Dose: 0.5 mg Documented by: Haloperidol (Haloperidol 0.5 Mg Tab) 1 mg PO ONETIME ONE Stop: 11/09/20 20:36 Last Admin: 11/09/20 22:19 Dose: 1 mg Documented by: Haloperidol Lactate (Haloperidol Lactate 5 Mg/Ml Sdv) 1 mg IM ONETIME ONE Stop: 11/09/20 04:28 Last Admin: 11/09/20 08:00 Dose: Not Given Documented by: Haloperidol Lactate (Haloperidol Lactate 5 Mg/Ml Sdv) 5 mg IM ONETIME ONE Stop: 11/10/20 08:28 Last Admin: 11/10/20 08:49 Dose: 5 mg Documented by: Sodium Chloride (Normal Saline) 1,000 mls @ 999 mls/hr IV .BOLUS ONE Stop: 11/07/20 18:09 Last Admin: 11/07/20 17:20 Dose: 999 mls/hr Documented by: Potassium Chloride/Sodium Chloride (Normal Saline With 40 Meq Kcl) 1,000 mls @ 125 mls/hr IV ASDIRECTED [facility] Last Admin: 11/08/20 05:31 Dose: 125 mls/hr Documented by: Sodium Chloride (Normal Saline) 1,000 mls @ 125 mls/hr IV ASDIRECTED [facility] Last Infusion: 11/08/20 15:13 Dose: 150 mls/hr Documented by: Sodium Chloride (Normal Saline) 1,000 mls @ 999 mls/hr IV .BOLUS ONE Stop: 11/08/20 14:59 Last Admin: 11/08/20 14:34 Dose: 999 mls/hr Documented by: Insulin Regular in 0.9 % NACL (Myxredlin In Ns 100 Unit/100 Ml) 100 unit in 100 mls @ 9.072 mls/hr IV TITRATE SUPRIYA; Protocol Last Admin: 11/08/20 15:52 Dose: 0.1 units/kg/hr, 9.072 mls/hr Documented by: Dextrose/Water (Dextrose 5% In Water) 1,000 mls @ 75 mls/hr IV ASDIRECTED SUPRIYA Last Admin: 11/08/20 19:20 Dose: 75 mls/hr Documented by: Lactated Ringer's (Ringers, Lactated) 1,000 mls @ 75 mls/hr IV ASDIRECTED SUPRIYA Last Admin: 11/09/20 10:39 Dose: 75 mls/hr Documented by: Sodium Chloride (Normal Saline) 500 mls @ 999 mls/hr IV .BOLUS ONE Stop: 11/08/20 20:35 Last Admin: 11/08/20 20:16 Dose: 999 mls/hr Documented by: Potassium Chloride 10 meq/ (Premix) 50 mls @ 50 mls/hr IV ONETIME ONE Stop: 11/08/20 22:11 Last Admin: 11/08/20 21:41 Dose: 50 mls/hr Documented by: Sodium Bicarbonate 50 meq/ (Sodium Chloride) 150 mls @ 150 mls/hr IV ONETIME ONE Stop: 11/08/20 22:29 Last Admin: 11/08/20 21:32 Dose: 150 mls/hr Documented by: Potassium Chloride 20 meq/ (Premix) 100 mls @ 50 mls/hr IV ONETIME ONE Stop: 11/09/20 00:12 Last Admin: 11/08/20 22:48 Dose: 50 mls/hr Documented by: Dextrose/Sodium Chloride (Dextrose 5%-1/2 Ns) 1,000 mls @ 75 mls/hr IV A SDIRECTED SUPRIYA Last Admin: 11/08/20 23:52 Dose: 75 mls/hr Documented by: Sodium Chloride (Normal Saline) 100 mls @ 200 mls/hr IV ASDIRECTED SUPRIYA Last Admin: 11/08/20 17:30 Dose: 200 mls/hr Documented by: Potassium Chloride/Dextrose/Sod Cl (D5 1/2 Ns W/ 40 Meq/L Kcl) 1,000 mls @ 70 mls/hr IV ASDIRECTED SUPRIYA Potassium Chloride 20 meq/ (Premix) 100 mls @ 50 mls/hr IV ONETIME ONE Stop: 11/09/20 13:58 Last Admin: 11/09/20 12:27 Dose: 50 mls/hr Documented by: Potassium Chloride 20 meq/ (Premix) 100 mls @ 50 mls/hr IV ONETIME ONE Stop: 11/09/20 16:59 Last Admin: 11/09/20 14:36 Dose: 50 mls/hr Documented by: Potassium Chloride/Dextrose/Sod Cl (D5 1/2 Ns W/ 40 Meq/L Kcl) 1,000 mls @ 70 mls/hr IV ASDIRECTED [facility] Last Admin: 11/10/20 06:42 Dose: 70 mls/hr Documented by: Sodium Phosphate 45 mmole/ (Sodium Chloride) 265 mls @ 44 mls/hr IV ONETIME ONE Stop: 11/10/20 17:31 Last Admin: 11/10/20 11:47 Dose: 44 mls/hr Documented by: Lactated Ringer's (Ringers, Lactated) 1,000 mls @ 125 mls/hr IV ASDIRECTED [facility] Last Admin: 11/10/20 14:16 Dose: 125 mls/hr Documented by: Potassium Chloride 20 meq/ (Premix) 100 mls @ 50 mls/hr IV ONETIME ONE Stop: 11/10/20 14:44 Last Admin: 11/10/20 14:08 Dose: 50 mls/hr Documented by: Potassium Chloride 20 meq/ (Premix) 100 mls @ 50 mls/hr IV ONETIME ONE Stop: 11/10/20 17:59 Last Admin: 11/10/20 16:18 Dose: 50 mls/hr Documented by: Potassium Chloride 20 meq/ (Premix) 100 mls @ 50 mls/hr IV ONETIME ONE Stop: 11/10/20 21:59 Last Admin: 11/10/20 19:07 Dose: 50 mls/hr Documented by: Insulin Aspart (Insulin Aspart 100 Units/Ml 3 Ml Pen) 0 unit SUBCUT WITHMEALSANDBED [facility]; Protocol Last Admin: 11/08/20 12:19 Dose: 3 units Documented by: Insulin Glargine (Insulin Glargine,Hum.Rec.Anlog 100 Unit/Ml 3 Ml Pen) 15 unit SUBCUT DAILY [facility] Insulin Glargine (Insulin Glargine,Hum.Rec.Anlog 100 Unit/Ml 3 Ml Pen) 5 unit SUBCUT DAILY [facility] Last Admin: 11/08/20 08:16 Dose: 5 units Documented by: Insulin Glargine (Insulin Glargine,Hum.Rec.Anlog 100 Unit/Ml 3 Ml Pen) 10 unit SUBCUT ONETIME ONE Stop: 11/09/20 11:01 Insulin Glargine (Insulin Glargine,Hum.Rec.Anlog 100 Unit/Ml 3 Ml Pen) 10 unit SUBCUT ONETIME ONE Stop: 11/08/20 11:01 Last Admin: 11/08/20 12:00 Dose: 10 units Documented by: Iopamidol (Iopamidol 755 Mg/Ml 75 Ml Bottle) 75 ml IVPUSH ONETIME ONE Stop: 11/08/20 17:08 Last Admin: 11/08/20 22:55 Dose: 75 ml Documented by: Iopamidol (Iopamidol 755 Mg/Ml 75 Ml Bottle) 75 ml IVPUSH ONETIME ONE Stop: 11/10/20 22:00 Last Admin: 11/10/20 22:46 Dose: 75 ml Documented by: Lorazepam (Lorazepam 2 Mg/Ml Sdv) 0.25 mg IVPUSH ONETIME ONE Stop: 11/08/20 22:43 Last Admin: 11/08/20 23:38 Dose: 0.25 mg Documented by: Lorazepam (Lorazepam 2 Mg/Ml Sdv) 0.25 mg IVPUSH ONETIME ONE Stop: 11/09/20 02:10 Last Admin: 11/09/20 02:30 Dose: 0.25 mg Documented by: Lorazepam (Lorazepam 2 Mg/Ml Sdv) 0.5 mg IVPUSH ONETIME ONE Stop: 11/09/20 23:21 Last Admin: 11/09/20 23:40 Dose: 0.5 mg Documented by: Lorazepam (Lorazepam 2 Mg/Ml Sdv) 0.5 mg IVPUSH ONETIME ONE Stop: 11/10/20 01:54 Last Admin: 11/10/20 02:17 Dose: 0.5 mg Documented by: Lorazepam (Lorazepam 2 Mg/Ml Sdv) 0.5 mg IVPUSH ONETIME ONE Stop: 11/10/20 05:23 Last Admin: 11/10/20 05:41 Dose: 0.5 mg Documented by: Melatonin (Melatonin 3 Mg Tab) 3 mg PO BEDTIME PRN PRN Reason: Insomnia Last Admin: 11/07/20 23:00 Dose: 3 mg Documented by: Metoclopramide HCl (Metoclopramide 10 Mg/2 Ml Sdv) 10 mg IVPUSH ONETIME ONE Stop: 11/07/20 18:37 Last Admin: 11/07/20 18:40 Dose: 10 mg Documented by: Metoclopramide HCl (Metoclopramide 10 Mg/2 Ml Sdv) 5 mg IVPUSH Q6H SUPRIYA Last Admin: 11/09/20 18:23 Dose: 5 mg Documented by: Metoprolol Tartrate (Metoprolol Tartrate 5 Mg/5 Ml Sdv) 5 mg IVPUSH ONETIME ONE Stop: 11/10/20 12:25 Last Admin: 11/10/20 14:09 Dose: 5 mg Documented by: Metoprolol Tartrate (Metoprolol Tartrate 5 Mg/5 Ml Sdv) 5 mg IVPUSH ONETIME ONE Stop: 11/10/20 22:01 Last Admin: 11/10/20 22:35 Dose: 5 mg Documented by: Morphine Sulfate (Morphine 2 Mg/Ml Syringe) 2 mg IVPUSH ONETIME ONE Stop: 11/10/20 11:53 Last Admin: 11/10/20 11:58 Dose: 2 mg Documented by: Non-Formulary Medication (Non-Formulary Medication 1 Each) 5 each SUBCUT DAILY [facility] Ondansetron HCl (Ondansetron 4 Mg/2 Ml Sdv) 4 mg IVPUSH ONETIME ONE Stop: 11/07/20 17:10 Last Admin: 11/07/20 17:29 Dose: 4 mg Documented by: Ondansetron HCl (Ondansetron 4 Mg Tab.Dis) 4 mg PO Q6HR PRN PRN Reason: Nausea Last Admin: 11/08/20 04:57 Dose: 4 mg Documented by: Ondansetron HCl (Ondansetron 4 Mg/2 Ml Sdv) 4 mg IVPUSH ONETIME ONE Stop: 11/08/20 19:45 Last Admin: 11/08/20 19:54 Dose: 4 mg Documented by: Sertraline HCl (Sertraline 50 Mg Tab) 50 mg PO 1700 [facility] Last Admin: 11/08/20 16:27 Dose: 50 mg Documented by: Simvastatin (Simvastatin 20 Mg Tab) 40 mg PO DAILY [facility] Sodium Phosphate (Phosphorus #1 250 Mg Tab) 500 mg PO ONETIME ONE Stop: 11/08/20 23:10 Last Admin: 11/08/20 23:35 Dose: 500 mg Documented by: Sodium Phosphate (Phosphorus #1 250 Mg Tab) 500 mg PO ONETIME ONE Stop: 11/08/20 05:01 Last Admin: 11/08/20 23:16 Dose: Not Given Documented by: Sodium Phosphate (Phosphorus #1 250 Mg Tab) 500 mg PO ONETIME ONE Stop: 11/09/20 05:01 Last Admin: 11/09/20 05:12 Dose: 500 mg Documented by: Sodium Phosphate (Phosphorus #1 250 Mg Tab) 500 mg PO ONETIME ONE Stop: 11/09/20 17:01 Last Admin: 11/09/20 16:08 Dose: 500 mg Documented by: Sodium Phosphate (Phosphorus #1 250 Mg Tab) 500 mg PO ONETIME ONE Stop: 11/09/20 21:01 Last Admin: 11/09/20 20:19 Dose: 500 mg Documented by: Sodium Phosphate (Phosphorus #1 250 Mg Tab) 750 mg PO QID [facility] Last Admin: 11/10/20 09:48 Dose: Not Given Documented by: - Exam Quality Assessment: Reports: DVT Prophylaxis. Denies: Supplemental Oxygen General: Reports: Obtunded. Denies: Alert HEENT: Reports: Mucous Membr. Moist/[place] Lungs: Reports: Clear to Auscultation, Normal Respiratory Effort Cardiovascular: Reports: Tachycardia. Denies: Murmurs GI/Abdominal Exam: Soft, Tender, Abnormal Bowel Sounds (faint) (Female) Exam: Deferred Rectal (Female) Exam: Deferred
[2020-11-11] MEDS: Morphine 2 MG/ML SYRINGE IVPUSH PRN (00:37)
--- NOTE | 2020-11-11 10:24 | CT ---
[id number] CT/CT Abdomen Pelvis W IV EXAM: CT Abdomen Pelvis W IV CLINICAL DATA: SBO, LEUKOCYTOSIS, ABD TENDERNESS, TACHYCARDIA COMPARISON STUDY: November 08, 2020. FINDINGS: NG tube tip in the stomach lumen. Diffusely decreased hepatic density suggesting underlying steatosis. Gallbladder is mildly distended but otherwise unremarkable. Poorly defined heterogeneous area of gas containing soft tissue in the right lower quadrant. This measures approximately 80 x 62 x 96 mm. Gas and fluid extend along the right pelvic sidewall into the presacral space of the pelvis as well. Findings are concerning for phlegmonous change in the setting of perforated bowel/bowel leak. Possible ulceration/defect of the cecal tip (series 4 image 41). Persistent mildly dilated loops of small bowel in the midabdomen. However overall bowel gas pattern has improved compared to November 08. Few mildly enlarged right lower quadrant mesenteric lymph nodes. Largest measures 14 mm in short axis diameter (series 2 image 101 Urinary bladder decompressed by Odonnell catheter. IMPRESSION: Interval development of pneumoperitoneum and phlegmonous change in the right lower quadrant, described above. Findings are most consistent with viscus perforation. There is evidence to suggest possible cecal perforation, described above. Surgical consultation recommended. Improved bowel gas pattern with persistent changes of low-grade obstruction in the midabdomen. NG tube remains in place. Beto Garsia MD 11/11/20 0946 Thank you for allowing us to participate in the care of your patient.
== END 2020-11-11 01:00 | DRG 178 ==
LOC: KA.ED 16:57 → KA.MS 19:41 → OBSVTOIN 11-08 15:00
PROVIDERS: ADMIT Family Medicine; ATTEND Family Medicine
DX: U07.1 COVID-19 (principal); K56.609 Unspecified intestinal obstruction, unspecified as to partial versus complete obstruction; R11.0 Nausea; E87.2 Acidosis; R53.1 Weakness; K56.7 Ileus, unspecified; R00.0 Tachycardia, unspecified; D72.0 Genetic anomalies of leukocytes; I10 Essential (primary) hypertension; E78.5 Hyperlipidemia, unspecified; E87.6 Hypokalemia; E83.39 Other disorders of phosphorus metabolism; E86.0 Dehydration; M54.40 Lumbago with sciatica, unspecified side; R44.1 Visual hallucinations; H54.7 Unspecified visual loss; E78.00 Pure hypercholesterolemia, unspecified; F41.9 Anxiety disorder, unspecified; F32.9 Major depressive disorder, single episode, unspecified; E66.9 Obesity, unspecified; E61.1 Iron deficiency; E11.9 Type 2 diabetes mellitus without complications; R41.82 Altered mental status, unspecified; K52.9 Noninfective gastroenteritis and colitis, unspecified; Z79.4 Long term (current) use of insulin; Z79.899 Other long term (current) drug therapy; Z79.82 Long term (current) use of aspirin; Z98.49 Cataract extraction status, unspecified eye; Z87.891 Personal history of nicotine dependence; Z68.35 Body mass index [BMI] 35.0-35.9, adult
CPT/HCPCS: 36415; 36600; 51702; 71045; 71275; 74018; 74176; 74177; 80048; 80053; 81001; 82150; 82550; 82803; 82947; 83036; 83605; 83615; 83690; 83735; 84100; 84145; 84484; 85025; 85379; 85610; 85652; 85730; 86140; 93005; 96365; 96366; 96372; 96374; 96375; 96376; 99220; 99285-25; A9270-GY; C9113; G0378; J0696; J1630; J1650; J1815-GY; J2060; J2270; J2405; J2765; J3480; J3490; J7030; J7040; J7042; J7050; J7060; J7120; Q9967; U0002